=== PATIENT | male | born 1950 | race Caucasian/White ===

== ENCOUNTER 2019-09-21 06:52 | Day surgery (SDC) | payer MEDICARE, SELFPAY ==
[2019-09-21 07:19] LABS: Glucose Point of Care 122 (65-105)
== END 2019-09-21 10:08 | disposition home or self-care (01) ==
PROVIDERS: PCP Internal Medicine; Visit Provider Surgery
DX: R19.5 Other fecal abnormalities (principal); D12.5 Benign neoplasm of sigmoid colon; D12.8 Benign neoplasm of rectum
CPT/HCPCS: 45385; 811; 88305; J2370; J2704; J7120

== ENCOUNTER 2020-01-04 07:16 | Outpatient (CLI) | payer MEDICARE, SELFPAY ==
[2020-01-04 07:29] LABS: Add Urine Microscopic? YES; Appearance Urine Sl Cloudy (Clear); Bilirubin Urine Negative (Negative); Blood Urine Negative (Negative); Color Urine Yellow (Yellow); Glucose Urine UA Negative (Negative); Ketones Urine Negative (Negative); Leukocyte Esterase Ur 1+ (Negative); Nitrate Urine Positive (Negative); Protein Urine Negative (Negative); Specific Grav Ur 1.025 (1.010-1.020); Urobilinogen Urine 0.2 mg/dL (0.2-1.0)
[2020-01-04 07:36] LABS: Bacteria Urine 3+ /hpf; RBC Urine 0-2 /hpf (0-2); WBC Urine 31-50 /hpf (0-3)
[2020-01-04 07:38] LABS: Hemoglobin A1C 6.9 % (<5.7); MALB Creatinine Ratio 9.2 mg/g (0-30); Microalbumin Urine Random 12.2 mg/L
[2020-01-04 08:07] LABS: Alanine Aminotransferase 33 U/L (16-63); Albumin Level 3.5 g/dL (3.4-5.0); Alkaline Phosphatase 91 U/L (46-116); Anion Gap 14.4 mmol/L (7-16); Aspartate Amino Transferase 19 U/L (15-37); Bilirubin,Total 0.4 mg/dL (0.00-1.00); Blood Urea Nitrogen 14 mg/dL (7-18); Calcium 8.4 mg/dL (8.5-10.1); Carbon Dioxide 27 mmol/L (21-32); Chloride 106 mmol/L (98-108); Cholesterol 141 mg/dL (0-200); Creatine Kinase 77 U/L (39-308); Estimated Glomerular Filt Rate > 60; Glucose 131 mg/dL (70-99); HDL Direct 37 mg/dL (40-60); LDL Cholesterol Calculated 82 mg/dL (<130); Osmolality Calculated 298 mOsm/kg (285-295); Potassium 4.4 mmol/L (3.5-5.1); Sodium 143 mmol/L (136-145); Total Protein 6.2 g/dL (6.4-8.2); Triglycerides 108 mg/dL (0-150)
== END 2020-01-04 07:17 | disposition home or self-care (01) ==
LOC: CHSLAB 07:18
PROVIDERS: PCP Internal Medicine; Visit Provider Internal Medicine
DX: E78.2 Mixed hyperlipidemia (principal); E11.9 Type 2 diabetes mellitus without complications; I10 Essential (primary) hypertension
CPT/HCPCS: 36415; 80053; 80061; 81001; 82043; 82550; 83036

== ENCOUNTER 2020-01-25 07:26 | Outpatient (CLI) | payer MEDICARE, SELFPAY ==
--- NOTE | ~2020-01-25 | CT_ITS ---
EXAMINATION: CT abdomen pelvis w con DATE: 01/25/2020 08:23 INDICATION: Right sided abdominal mass TECHNIQUE: Computed tomography (CT) of the abdomen and pelvis was performed with 100 cc Omnipaque 350 intravenous contrast. Automated exposure control and iterative reconstruction technique were employe d. Exam dose: 1379.59 mGy-cm total exam DLP. COMPARISON: None. FINDINGS: The lung bases are clear of infiltrate or consolidation. Normal heart size. No pericardial or pleural effusion. Small sliding hiatal hernia. There are multiple faceted gallstones in the dependent aspect of the gallbladder, measuring up to jb roximately 1 cm maximal dimension. No unusual gallbladder distention or gallbladder wall thickening o r pericholecystic fluid or stranding is evident. No bile duct or pancreatic duct dilatation. No hepatic space-occupying mass lesion is evident. The spleen measures 11 cm vertical dimension, with 14 cm being upper limits of normal. No pancreatic mass lesion or calcification. Normal morphology of the adrenal glands. There is a 3.7 cm exophytic cyst of the left kidney lower pole. Indeterminate approximately 1 cm septated hypoenhancing lesion in the posterior upper pole of the rig ht kidney. This is likely a septated cyst, but consider follow-up CT imaging in 6 months. No other renal mass lesions are detected. No ureteral calculus or hydroureteronephrosis. There is severe prostate enlargement. There is mild diffuse bladder wall thickening and evidence of s mall urinary bladder diverticulum on the left anterosuperiorly. Status post bilateral inguinal herniorrhaphy. There is calcification but no aneurysm of the abdominal aorta and iliac arteries. No intraperitoneal or retroperitoneal or pelvic mass lesion or adenopathy or ascites is detected. There is a small fat-containing inguinal hernia. There is a large right spiculated hernia containing fat, cecum and ascending colon, terminal ileum an d the proximal aspect of the appendix. No strangulation or obstruction is evident. No bowel wall thic kening, pneumatosis or intraperitoneal free air. Normal appendix. There are numerous diverticula of the colon primarily but not completely limited to the sigmoid and a scending colon. There is no CT evidence of diverticulitis. Included skeletal structures are unremarkable. IMPRESSION: Right largest medially in hernia containing ascending colon, cecum, terminal ileum and a portion of the appendix; no obstruction or strangulation Small fat-containing umbilical hernia Status post bilateral inguinal herniorrhaphy Cholelithiasis Small sliding hiatal hernia 3.7 cm exophytic cyst of the left kidney Probable 1 cm septated right renal cyst; consider 6 month follow-up CT imaging of right kidney Severe prostate enlargement Reviewed, dictated and finalized at [facility]. Reviewed, dictated and finalized at [facility]. IMPRESSION: Right largest medially in hernia containing ascending colon, cecum , terminal ileum and a portion of the appendix; no obstruction or strangulation Small fat-containing umbilical hernia Status post bilateral inguinal herniorrhaphy Cholelithiasis Small sliding hiatal hernia 3.7 cm exophytic cyst of the left kidney Probable 1 cm septated right renal cyst; consider 6 month follow-up CT imaging of right kidney Severe prostate enlargement
[2020-01-25 07:48] LABS: Estimated Glomerular Filt Rate > 60
== END 2020-01-25 07:27 | disposition home or self-care (01) ==
LOC: CHSIMG 07:28
PROVIDERS: PCP Internal Medicine; Visit Provider Internal Medicine
DX: R19.09 Other intra-abdominal and pelvic swelling, mass and lump (principal)
CPT/HCPCS: 74177; Q9965

== ENCOUNTER 2020-02-12 07:48 | Outpatient (CLI) | payer MEDICARE, SELFPAY ==
[2020-02-12 07:59] LABS: Appearance Urine Clear (Clear); Bilirubin Urine Negative (Negative); Color Urine Yellow (Yellow); Glucose Urine UA Negative (Negative); Ketones Urine Negative (Negative); Leukocyte Esterase Ur Negative (Negative); Nitrate Urine Negative (Negative); Protein Urine Negative (Negative); Specific Grav Ur >= 1.030 (1.010-1.020); Urobilinogen Urine 0.2 mg/dL (0.2-1.0); pH Urine 5.5 (5.0-8.0)
[2020-02-12 08:08] LABS: Add Urine Microscopic? YES; Blood Urine Trace-lysed (Negative); RBC Urine 0-2 /hpf (0-2)
[2020-02-12 08:09] LABS: Bacteria Urine Trace /hpf; Squamous Epithelial Cell Urine Few /hpf (Few); WBC Urine None seen /hpf (0-3)
== END 2020-02-12 07:49 | disposition home or self-care (01) ==
LOC: CHSLAB 07:50
PROVIDERS: PCP Internal Medicine; Visit Provider Internal Medicine
DX: N39.0 Urinary tract infection, site not specified (principal)
CPT/HCPCS: 81001; 87086; 87088

== ENCOUNTER 2020-03-12 14:52 | Outpatient (CLI) | payer MEDICARE, SELFPAY ==
--- NOTE | 2020-03-12 14:55 | ECG_ITS ---
Measurements Intervals [place] Rate: 61 P: 21 FL: 190 QRS: -20 QRSD: 93 T: 17 QT: 382 QTc: 386 Interpretive Statements SINUS RHYTHM BASELINE ARTIFACT- I, II, III, AVR, AVL, AVF NORMAL ECG Electronically Signed On 03-12-2020 15:27:38 CDT by Oli Leslie D.O.
[2020-03-12 15:59] LABS: Anion Gap 8 mmol/L (8-16); Blood Urea Nitrogen 11 mg/dL (9-20); Calcium 8.8 mg/dL (8.4-10.2); Carbon Dioxide 25 mmol/L (22-30); Chloride 104 mmol/L (98-107); Estimated Glomerular Filt Rate > 60; Glucose 127 mg/dL (75-110); Potassium 4.2 mmol/L (3.4-5.0); Sodium 137 mmol/L (137-145)
== END 2020-03-12 14:53 | disposition home or self-care (01) ==
LOC: ANHSURGERY 14:55
PROVIDERS: Anesthesiology; PCP Internal Medicine; Visit Provider Surgery
DX: K43.9 Ventral hernia without obstruction or gangrene (principal); I10 Essential (primary) hypertension; E11.9 Type 2 diabetes mellitus without complications
CPT/HCPCS: 36415; 80048; 86850; 86900; 86901; 93005

== ENCOUNTER 2020-03-18 01:02 | Outpatient (CLI) | payer MEDICARE, SELFPAY ==
[2020-03-18 16:32] LABS: SARS-CoV-2 RNA PCR Negative
== END 2020-03-18 01:03 | disposition home or self-care (01) ==
LOC: ANHCOVIDDT 01:03
PROVIDERS: PCP Internal Medicine; Visit Provider Surgery
DX: Z01.812 Encounter for preprocedural laboratory examination (principal); Z20.828 Contact with and (suspected) exposure to other viral communicable diseases
CPT/HCPCS: 87635; C9803; U0003

== ENCOUNTER 2020-03-20 00:45 | Day surgery (SDC) | payer MEDICARE, SELFPAY ==
[2020-03-11 12:22] VITALS: BMI 39.2
[2020-03-20] VITALS (8 sets, daily range): BP systolic 127–160; BP diastolic 72–98; PULSE 57–69; RESP 13–18; TEMP 36.2–36.6; O2SAT 94–98
[2020-03-20] MEDS: LACTATED RINGERS 1,000 ML 30 ML IV CONT ×2 (06:49→09:58)
[2020-03-20] MEDS: ACETAMINOPHEN 500 MG TABLET 1000 MG PO (06:50)
[2020-03-20] MEDS: KETOROLAC 15 MG/ML VIAL (*BKC) IV PUSH (06:50)
--- NOTE | 2020-03-20 07:01 | WPDANESEPPF ---
Anes - Initial Pre Proc Eval Procedure: Operation Date: 03/20/20 07:30 Proposed Procedures p Laparoscopic Right Spigelian Hernia Repair With Mesh, Davinci Assisted - Justin Ventura DO Date/Time: 03/20/20 07:01 Surgeon: Justin Ventura DO Pre Op Diagnosis: Right Spigelian Hernia Patient Data Age: 69 Gender: M Height: 1.75 m Weight: 120.35 kg Allergies Allergy/AdvReac Type Severity Reaction Status Date / Time No Known Allergies Allergy Unverified 03/11/20 12:17 Home Medications Medication Instructions Recorded Confirmed Type atenolol 25 mg tablet 25 mg PO DAILY 02/28/20 03/11/20 History losartan 100 mg tablet 50 mg PO DAILY 02/28/20 03/11/20 History meloxicam 15 mg tablet 15 mg PO DAILY 02/28/20 03/11/20 History metformin 500 mg tablet 500 mg PO DAILY 02/28/20 03/11/20 History pravastatin 40 mg tablet 40 mg PO DAILY 02/28/20 03/11/20 History tamsulosin 0.4 mg capsule 0.4 mg PO DAILY 02/28/20 03/11/20 History aspirin 81 mg tablet,delayed 81 mg PO DAILY 02/29/20 03/11/20 History release ECG: Date of Service: 03/12/20 Procedure(s): CA 12 lead EKG Accession Number(s): [id number] cc: ~ Measurements Intervals [place] Rate: 61 P: 21 [place]: 190 QRS: -20 QRSD: 93 T: 17 QT: 382 QTc: 386 Interpretive Statements SINUS RHYTHM BASELINE ARTIFACT- I, II, III, AVR, AVL, AVF NORMAL ECG Electronically Signed On 03-12-2020 15:27:38 CDT by Oli Leslie D.O. Dictated By: Oli Leslie DO 03/12/20 1544 Patient hx anesthesia problems: post op nausea/vomiting Family hx anesthesia problems: none PMFSH Past Medical History Medical History (Updated 03/20/20 @ 07:04 by Brennan Esquivel MD) Anxiety PANIC ATTACKS Arthritis BMI 39.0-39.9,adult BPH (benign prostatic hyperplasia) Chronic rhinitis COPD (chronic obstructive pulmonary disease) Emphysema lung GERD (gastroesophageal reflux disease) Heart disease HTN (hypertension) Mixed hyperlipidemia Post-operative nausea and vomiting Spigelian hernia Type 2 diabetes mellitus Surgical History Surgical History H/O hand surgery H/O hemorrhoidectomy H/O hernia repair bilateral inguinal History of colonoscopy Social History Social History Smoking packs per day: 1 Smoking cigarettes per day: 20.0 Years smoked: 25 Smoking pack-years: 25.00 Smoking status: Former smoker Tobacco type: cigarettes Smoking end date: 07/12/89 Alcohol intake: current Alcohol use details: 2 BEERS PER MONTH Substance use: unknown Living arrangements: alone Gender identity (if verbalized by the patient): Male Spiritual care concerns: No Anes - Eval Final PreProcedure Day of Procedure 03/20/20 07:01 Patient weight: obese Heart: regular rate and rhythm Lungs: clear to auscultation and normal air movement Airway: Mallampati scale class II Neurological: alert and oriented Last oral intake: >/= 8 hours ASA classification: III Emergent: no Anesthetic plan: proceed Anesthesia type and monitoring: general ETT Informed Consent: The patient's anesthetic plan and its attendant risks and benefits were discussed with the patient/family/POA. Questions were solicited and answers provided to the satisfaction of the patient/family/POA.
[2020-03-20 07:06] LABS: Glucose Point of Care 116 (65-105)
--- NOTE | 2020-03-20 07:22 | WPDHPUPDATE1 ---
History and Physical Update Update Date/Time: 03/20/20 07:22 History and Physical has been reviewed, including an updated exam of the patient. There are NO changes in the patient's condition. Risks, benefits, and alternatives have been discussed and questions answered. Patient agrees to proceed with procedure.
[2020-03-20] MEDS: ceFAZolin 3 GM/D5W 100 ML 100 ML IVPB (07:25)
--- NOTE | 2020-03-20 09:45 | PM.PROC ---
Procedure Note - Detailed Date of procedure: 03/20/20 Pre-op diagnosis: Right Spigelian Hernia Post-op diagnosis: other (Incarcerated right spigelian hernia) Procedure performed: Laparoscopic incarcerated right spigelian hernia repair with Symbotex mesh, da Morena assisted Description of procedure: Procedure as well as risks, benefits, and alternatives were discussed with the patient. Written consent was obtained and placed in chart prior to procedure. Patient was brought back to surgical suite. He was placed supine on operating table. Time-out was done to confirm patient and procedure. he was then intubated by the anesthesia department. his abdomen was prepped and draped in sterile fashion using chlorhexidine prep. A 5 millimeter incision was made in the left upper quadrant, and a 5 millimeter Optiview trocar was advanced through the abdominal layers under direct visualization. Once inside the abdominal cavity, carbon dioxide insufflation was used to create a pneumoperitoneum. the abdomen was inspected. An 8 millimeter incision was made in the left lower quadrant, and an 8 millimeter robotic trocar was placed under direct visualization. Another 8 millimeter incision was made in the left lateral abdomen, and an 8 millimeter robotic trocar was placed under direct visualization. Exparel was infiltrated along the lateral abdominal penny to perform a transversus abdominis plane block bilaterally. The 5 millimeter port was removed, the incision was extended to 12 millimeters, and a 12 millimeter air seal port was placed under direct visualization. A Vargas-Burk cone was also used to place an 0-Vicryl simple interrupted suture at this trocar site. The robotic arms were brought up to the patient's bedside and secured to the ports. The camera and instruments were inserted, and I then moved over to the robotic console and took control of the camera and instruments. After careful thorough inspection of the abdominal cavity, I began my dissection at the hernia. the incarcerated terminal ileum, cecum, and ascending colon were reduced from within the hernia defect. The hernia sac was also dissected down from the hernia defect along with the preperitoneal fat. I then measured the hernia size. The hernia measured 4 cm wide by 3 cm vertically. The fascia was closed using an 0-Stratafix running suture in a transverse fashion. A 10 cm x 15 cm Symbotex mesh was then placed within the abdominal cavity. This was oriented vertically with the mesh centered on the hernia defect. The mesh was then secured circumferentially using 2 0 V-lock absorbable running suture. The repair was inspected, and one final inspection was made around the abdominal cavity. The robotic instruments were then removed, and the robotic arms were disengaged from the trocars. The ports were then removed under direct visualization, the camera was removed, and the pneumoperitoneum was released. The 0 Vicryl transfascial suture was tied down. The skin of the incisions was then approximated using 4-0 Monocryl subcuticular suture. Exofin glue was then applied on top. The patient was then awakened from anesthesia, extubated, and transferred to recovery. Implants: Symbotex 10cm x 15cm mesh Anesthesia: GETA and local ( Exparel) Surgeon: Justin Ventura DO Estimated blood loss (mL): 10 Drains: No Complications: No immediate complications Condition: stable Disposition: same day Findings: Gene is a 69 y/o male who presents with a right spigelian hernia. He states he is not experiencing pain. He does hear a gurgling sound at the hernia site. He has a noticeable bulge on the right side. He reports having normal, regular BM's without difficulty. CT abd[facility]pelvis at [facility] was done on 01/25/20 and showed a large Spigelian hernia containing ascending colon, cecum, and terminal ileum. Discussions were made with the patient about his treatment options, and decision was made to proceed with
[2020-03-20 10:14] LABS: Glucose Point of Care 149 (65-105)
== END 2020-03-20 12:20 | disposition home or self-care (01) ==
PROVIDERS: PCP Internal Medicine; Visit Provider Surgery
PROC: (CPT 49653; principal; 2020-03-20 07:30)
DX: K43.6 Other and unspecified ventral hernia with obstruction, without gangrene (principal); I10 Essential (primary) hypertension; E78.2 Mixed hyperlipidemia; N40.0 Benign prostatic hyperplasia without lower urinary tract symptoms; J44.9 Chronic obstructive pulmonary disease, unspecified; K21.9 Gastro-esophageal reflux disease without esophagitis; E11.9 Type 2 diabetes mellitus without complications; Z79.84 Long term (current) use of oral hypoglycemic drugs; Z79.82 Long term (current) use of aspirin; Z87.891 Personal history of nicotine dependence; E66.9 Obesity, unspecified; Z68.37 Body mass index [BMI] 37.0-37.9, adult
CPT/HCPCS: 49653; S2900; A9270; C1781; C9290; J0690; J1100; J1170; J1885; J2250; J2405; J2704; J3010; J7030; J7120

== ENCOUNTER 2020-03-21 10:40 | Emergency (ER) | payer MEDICARE, SELFPAY ==
[2020-03-21 10:50] VITALS: BP 171/93; PULSE 74; RESP 16; TEMP 36.9; O2SAT 94
[2020-03-21 10:54] LABS: Appearance Urine Clear (Clear); Bilirubin Urine Negative (Negative); Color Urine Yellow (Yellow); Glucose Urine UA Negative (Negative); Ketones Urine Negative (Negative); Leukocyte Esterase Ur Negative LEU/UL (Negative); Nitrate Urine Negative (Negative); Protein Urine Negative (Negative); Specific Grav Ur 1.015 (1.010-1.020); Urobilinogen Urine 0.2 mg/dL (0.2-1.0)
[2020-03-21 10:57] LABS: Add Urine Microscopic? YES; Blood Urine Trace-Intact (Negative); RBC Urine 0-2 /hpf (0-2)
[2020-03-21 10:58] LABS: Bacteria Urine None seen /hpf; WBC Urine 0-3 /hpf (0-3)
[2020-03-21 11:22] LABS: Hemoglobin 14.2 g/dL (12.4-15.3); Mean Corpuscular Hemoglobin 29.8 pg (27.0-31.0); Mean Corpuscular Volume 90.3 fL (78.0-102.0); Mean Platelet Volume 11.3 fl (8.7-11.0); Platelet Count Result 143 K/mm3 (150-420); Red Blood Count 4.76 M/mm3 (4.70-6.10); Red Cell Distribution Width 12.4 % (11.6-14.4); White Blood Count 9.5 K/mm3 (4.8-10.8)
[2020-03-21 11:38] LABS: Alanine Aminotransferase 25 U/L (16-63); Albumin Level 3.9 g/dL (3.4-5.0); Alkaline Phosphatase 83 U/L (46-116); Anion Gap 13 mmol/L (8-16); Aspartate Amino Transferase 19 U/L (15-37); Bilirubin,Total 0.7 mg/dL (0.00-1.00); Blood Urea Nitrogen 24 mg/dL (7-18); Calcium 8.5 mg/dL (8.5-10.1); Carbon Dioxide 24 mmol/L (21-32); Chloride 100 mmol/L (98-108); Estimated Glomerular Filt Rate 32; Glucose 149 mg/dL (70-99); Osmolality Calculated 291 mOsm/kg (285-295); Potassium 4.2 mmol/L (3.5-5.1); Sodium 137 mmol/L (136-145); Total Protein 7.7 g/dL (6.4-8.2)
[2020-03-21] MEDS: SODIUM CHLORIDE 0.9% IV 1,000 ML 999 ML IV CONT (11:48)
--- NOTE | 2020-03-21 12:08 | ED.MALEGU ---
HPI - Male Genitourinary General Chief complaint: Urogenital-Male Stated complaint: surgery complications Source: patient Mode of arrival: ambulatory History of Present Illness HPI Narrative: This is a 69-year-old male presents today after he had Spigelian surgery laparoscopically at [facility]. And chest denies having difficulty passing urine and was having difficulty passing urine when he was standing. Currently able to pass urine with no burning no fever chills no nausea vomiting there is some abdominal tenderness after his laparoscopic surgery that was performed yesterday has had normal bowel movements. Onset (ago): day(s) Duration: improved Severity: mild Relieving factors: none Exacerbating factors: none Related Data Home Medications Medication Instructions Recorded Confirmed atenolol 25 mg tablet 25 mg PO DAILY 02/28/20 03/21/20 losartan 100 mg tablet 50 mg PO DAILY 02/28/20 03/21/20 meloxicam 15 mg tablet 15 mg PO DAILY 02/28/20 03/21/20 metformin 500 mg tablet 500 mg PO DAILY 02/28/20 03/21/20 pravastatin 40 mg tablet 40 mg PO DAILY 02/28/20 03/21/20 tamsulosin 0.4 mg capsule 0.4 mg PO DAILY 02/28/20 03/21/20 aspirin 81 mg tablet,delayed 81 mg PO DAILY 02/29/20 03/21/20 release Allergies Allergy/AdvReac Type Severity Reaction Status Date / Time No Known Allergies Allergy Unverified 03/20/20 07:12 Review of Systems Review of Systems: All systems reviewed & are unremarkable except as noted in HPI and below PMFSH Past Medical History Medical History Anxiety PANIC ATTACKS Arthritis BMI 39.0-39.9,adult BPH (benign prostatic hyperplasia) Chronic rhinitis COPD (chronic obstructive pulmonary disease) Emphysema lung GERD (gastroesophageal reflux disease) Heart disease HTN (hypertension) Mixed hyperlipidemia Post-operative nausea and vomiting Spigelian hernia Type 2 diabetes mellitus Surgical History Surgical History H/O hand surgery H/O hemorrhoidectomy H/O hernia repair bilateral inguinal History of colonoscopy Family History Family History Mother Hypertension Colon cancer Rheumatic arteritis High cholesterol Sibling Heart disease Social History Social History Smoking packs per day: 1 Smoking cigarettes per day: 20.0 Years smoked: 25 Smoking pack-years: 25.00 Smoking status: Former smoker Tobacco type: cigarettes Smoking end date: 07/12/89 Alcohol intake: current Substance use: unknown Gender identity (if verbalized by the patient): Male Spiritual care concerns: No Exam Const: General: no acute distress Nutritional Appearance: obese HENMT: Head: normal to inspection Eyes: Conjunctivae: conjunctivae normal Pupils: Equal, round and reactive pupils present EOM: EOMs intact bilaterally Neck: Neck: normal visual inspection, no lymphadenopathy and no meningeal signs Chest: Chest palpation & inspection: normal inspection of the chest Resp: Effort & Inspection: normal respiratory effort Auscultation: clear to auscultation bilaterally Cardio: Rate: regular rate Rhythm: regular rhythm GI: GI Palp: Yes Soft to palpation and Yes Tenderness to palpation present (GI) : General: Yes no CVA tenderness Testes: Testes normal Urinary Catheter: Urinary Catheter: patent and draining Back/Spine/Pelvis: Back: no CVA tenderness Skin: General skin exam: normal color Rashes: no rashes Extrem: General: normal to inspection and no pedal edema Psych: Appearance: grossly normal Mental Status: mental status grossly normal Course Course Emergency Course: Patient had elevated creatinine compared to a prior to his surgery had a bladder scan that showed 16cc of urine in his bladder, has been able to pass urine although difficult w
[2020-03-21 12:40] VITALS: BP 154/89
== END 2020-03-21 12:40 | disposition home or self-care (01) ==
PROVIDERS: Emergency Provider Emergency Medicine; PCP Internal Medicine
DX: N17.9 Acute kidney failure, unspecified (principal); N40.1 Benign prostatic hyperplasia with lower urinary tract symptoms
CPT/HCPCS: 36415; 80053; 81001; 85027; 96360; 99283; J7030

== ENCOUNTER 2020-03-28 11:42 | Inpatient (IN) | payer MEDICARE, SELFPAY ==
[2020-03-28] VITALS (9 sets, daily range): BP systolic 145–168; BP diastolic 64–97; PULSE 56–71; RESP 16–20; TEMP 36.4–36.8; O2SAT 96–100; BMI 38.7
--- NOTE | ~2020-03-28 | CT_ITS ---
EXAMINATION: CT abdomen pelvis wo con DATE: 03/28/2020 16:19 INDICATION: Abdominal pain. Nausea. TECHNIQUE: Computed tomography (CT) of the abdomen and pelvis was performed without intravenous contr ast. Automated exposure control and iterative reconstruction technique were employed. The dose-length product was 1380.19 mGy-cm. COMPARISON: CT abdomen and pelvis 01/25/2020 FINDINGS: The visualized portions of the lung bases demonstrate mild atelectasis. There are calcified pleural plaques bilaterally, which may be seen with asbestosis exposure. No pleural effusion. The he art size is normal. There are coronary artery calcifications. No pericardial effusion. There is diffu se hepatic steatosis. There are gallstones in the gallbladder, which is normal in size. The spleen, p ancreas, adrenal glands, and right kidney are normal. There is a 4.1 cm cyst in left kidney. No hydro nephrosis or urolithiasis. The prostate is severely enlarged. The bladder is decompressed by a Avitia catheter. There is diverticulosis of the colon without evidence of diverticulitis. There are no dilat ed loops of bowel. The appendix is normal. There is a small volume of ascites. There is edema in the retroperitoneum bilaterally. Body wall edema is noted. There is a small volume of fluid at the site o f the previously repaired right-sided spigelian hernia. There are changes of bilateral inguinal herni a repairs. Again seen is mild periportal lymphadenopathy, likely reactive. There is mild thoracolumba r spondylosis. IMPRESSION: 1. Small volume of ascites. 2. Small sliding hiatal hernia. 3. Diffuse hepatic steatosis. 4. Stable mild periportal lymphadenopathy, likely reactive. Reviewed, dictated and finalized at location A.
--- NOTE | ~2020-03-28 | US_ITS ---
US renal BI 03/28/2020 16:16 Procedure: Realtime transabdominal ultrasound of the kidneys and bladder. Indication: Postobstructive renal failure Comparison: No prior studies for comparison. Findings: Renal echotexture is normal bilaterally without hydronephrosis, contour deforming mass or r enal calculus. There is a 3.4 cm left renal cyst inferiorly. The right kidney measures 12.1 cm and le ft kidney measures 11.7 cm. There is a Avitia catheter in the bladder. Incidental note is made of gall stones. Impression: 1: Cholelithiasis. 2: 3.4 cm left renal cyst. Reviewed, dictated and finalized at location B. Impression: 1: Cholelithiasis. 2: 3.4 cm left renal cyst.
[2020-03-28 12:40] LABS: Basophils Percent Auto 0.3 % (0.2-1.2); Eosinophils Absolute Auto 0.2 K/mm3 (0-0.3); Eosinophils Percent Auto 1.8 % (0-4.4); Hematocrit 41.4 % (42.0-52.0); Hemoglobin 14.3 g/dL (14.0-18.0); Immature Granulocyte Absolute 0.02 K/mm3 (0.00-0.031); Immature Granulocyte Percent A 0.2 % (0-0.5); Lymphocytes Percent Auto 9.1 % (18.3-44.2); Mean Corpuscular HGB Conc 34.5 g/dl (32-36); Mean Corpuscular Hemoglobin 29.3 pg (26-34); Mean Corpuscular Volume 84.8 fl (80-100); Mean Platelet Volume 10.7 fl (7.4-10.4); Monocytes Absolute Auto 0.5 K/mm3 (0.1-0.6); Neutrophils Absolute Auto 7.2 K/mm3 (1.3-6.7); Neutrophils Percent Auto 82.6 % (45.5-73.1); Platelet Count Result 200 k/mm3 (150-375); Red Blood Count 4.88 M/mm3 (4.6-6.20); Red Cell Distribution Width 12.7 % (11.5-14.5); White Blood Count 8.8 K/mm3 (4.5-10.0)
[2020-03-28 13:00] LABS: Lactic Acid Reflex 0.9 mmol/L (0.7-2.1)
[2020-03-28 13:03] LABS: Alanine Aminotransferase 7 U/L (4-50); Albumin Level 4.1 g/dL (3.5-5.1); Alkaline Phosphatase 88 U/L (38-126); Anion Gap 25 mmol/L (8-16); Aspartate Amino Transferase 19 U/L (17-59); Bilirubin,Total 0.4 mg/dL (0.2-1.3); Blood Urea Nitrogen > 120 mg/dL (9-20); Calcium 7.7 mg/dL (8.4-10.2); Carbon Dioxide 12 mmol/L (22-30); Chloride 94 mmol/L (98-107); Glucose 86 mg/dL (75-110); Lipase 56 U/L (23-300); Potassium 5.7 mmol/L (3.4-5.0); Sodium 131 mmol/L (137-145)
[2020-03-28 13:34] LABS: Estimated CRCL calculation 5 ml/min; Estimated Glomerular Filt Rate 3
--- NOTE | 2020-03-28 14:06 | ED.ABDPAIN ---
HPI - Abdominal Pain General Chief Complaint: Abdominal Pain Stated Complaint: sent in dr. saucedo /varsha pain Time Seen by Provider: 03/28/20 13:52 History of Present Illness HPI narrative: Patient is a 69-year-old male who presents ER with lower abdominal pain and abnormal lab work. Patient had a spigelian hernia repaired on 03/20/2020. The next day he went to [facility] reporting decreased urine output. His creatinine was elevated from baseline. He received IV fluid and had a bladder scan that showed only 16 mL of retained urine. Patient reports over the last week he has had increased abdominal pain. She has episodes at night where he has urinary incontinence and voids all over himself. That will then decrease the discomfort he has in his lower abdomen. He has not been able to urinate on his own otherwise. No dysuria or fevers. Has history of BPH. Has not taken his medications in the last 3 days. Related Data Home Medications Medication Instructions Recorded Confirmed atenolol 25 mg tablet 25 mg PO DAILY 02/28/20 03/28/20 losartan 100 mg tablet 50 mg PO DAILY 02/28/20 03/28/20 meloxicam 15 mg tablet 15 mg PO DAILY 02/28/20 03/28/20 metformin 500 mg tablet 500 mg PO DAILY 02/28/20 03/28/20 pravastatin 40 mg tablet 40 mg PO DAILY 02/28/20 03/28/20 tamsulosin 0.4 mg capsule 0.4 mg PO DAILY 02/28/20 03/28/20 aspirin 81 mg tablet,delayed 81 mg PO DAILY 02/29/20 03/28/20 release Allergies Allergy/AdvReac Type Severity Reaction Status Date / Time seasonal allergy Allergy Other Uncoded 03/28/20 18:46 Review of Systems Review of Systems: All systems reviewed & are unremarkable except as noted in HPI and below Constitutional: Constitutional: Denies chills, Denies fever(s) and Denies weakness ENT: Denies nasal congestion and Denies sore throat Gastrointestinal: Gastrointestinal: Reports abdominal pain, Denies nausea and Denies vomiting Genitourinary: Genitourinary: Reports oliguria, Reports dysuria and Reports urinary incontinence [facility] Past Medical History Medical History (Updated 03/28/20 @ 23:07 by Pierre Pichardo MD) Anxiety Arthritis Benign prostatic hyperplasia Chronic rhinitis COPD with emphysema Essential hypertension Mixed hyperlipidemia Spigelian hernia Status post repair in March 2020. Type 2 diabetes mellitus Surgical History Surgical History (Updated 03/28/20 @ 20:56 by Dipti Olmstead PA-C) History of bilateral inguinal hernia repair History of colonoscopy History of elbow surgery History of hand surgery Related to a crush injury many years ago. History of hemorrhoidectomy History of hernia repair (~03/20/20) Right spigelian incarcerated hernia repair with mesh. Family History Family History Mother Hypertension Colon cancer Rheumatic arteritis High cholesterol Sibling Heart disease Social History Social History (Updated 03/28/20 @ 20:57 by Dipti Olmstead PA-C) Social History: Surrogate decision maker: Evelyn Kaye, daughter. Code status: Full code. Smoking packs per day: 1 Smoking cigarettes per day: 20.0 Years smoked: 25 Smoking pack-years: 25.00 Smoking status: Former smoker Tobacco type: cigarettes Smoking end date: 07/12/89 Alcohol intake: current Drinks per week: 1 Substance use: never Substance use type: does not use Additional living arrangements comments: Patient lives alone in his own home in [place]. He has been for approximately 2 years. 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 Gender identity (if verbalized by the patient): Male Spiritual care concerns: Yes Exam Narrative: Exam Narrative: GENERAL: Well-appearing, well-nourished, and in no acute distress. HEAD: Normocephalic, atraumatic. EYES: PERRL and EOMI. ENT: Mucous membranes moist. CHEST: Clear to auscultation. No respirat
--- NOTE | 2020-03-28 14:12 | ECG_ITS ---
Measurements Intervals [place] Rate: 55 P: 53 NC: 184 QRS: -25 QRSD: 89 T: 39 QT: 424 QTc: 406 Interpretive Statements SINUS BRADYCARDIA BASELINE ARTIFACT- I, II, AVR, AVL, V1, V4 BORDERLINE ECG Electronically Signed On 03-28-2020 14:37:25 CDT by Oli Leslie D.O.
[2020-03-28 14:48] LABS: Add Urine Microscopic? YES; Appearance Urine Cloudy (Clear); Bilirubin Urine Negative (Negative); Blood Urine 3+ (Negative); Color Urine Red (Yellow); Glucose Urine UA Negative (Negative); Ketones Urine Trace mg/dL (Negative); Leukocyte Esterase Ur Negative LEU/UL (Negative); Mucus Urine Rare /lpf; Nitrate Urine Negative (Negative); Protein Urine 2+ mg/dL (Negative); RBC Urine >75 /hpf (0-2); Specific Grav Ur 1.012 (1.001-1.035); Urobilinogen Urine Negative mg/dL (<2.0)
--- NOTE | 2020-03-28 15:55 | PC.NURSE ---
Patient to ultrasound via wheelchair.
[2020-03-28] MEDS: SODIUM BICARBONATE 8.4% 75 MEQ in SODIUM CHLORIDE 0.45% 1,000 ML 50 ML IV CONT (16:33)
--- NOTE | 2020-03-28 17:00 | PM.IMHP ---
H&P: HPI History of Present Illness Date/Time: 03/28/20. The patient was seen and evaluated in the emergency department at 17:00. Chief complaint: Weakness, difficulty urinating. Narrative: Blake Herron is a pleasant 69-year-old male with benign prostatic hyperplasia, hypertension, hyperlipidemia, COPD, and type 2 diabetes mellitus who presented to the emergency department earlier today with complaints of difficulty urinating and weakness. He is status post uneventful repair of an incarcerated spigelian hernia on 03/20/[address] Ventura. Since surgery he has had difficulties urinating, and in fact he was seen for such in the emergency department at [facility] on March 21. At that time his creatinine was a bit elevated from baseline, however bladder scan reportedly only showed 16 mL in the bladder and it was thought that he was probably dehydrated. He was given IV fluids for rehydration and discharged home. Unfortunately he continues to have difficulties urinating, at times just dribbling small amounts however some nights he wakes up ?soaked in urine.? His appetite has also been very poor with nausea and poor oral intake. In fact he has not had anything to eat or drink and has not taken his medications for the last 3 days. Additionally he has had discomfort in his lower abdomen and feelings of abdominal distension. A Avitia catheter was inserted and emergency department with reports of over 2 L of urine returned after insertion. With further questioning he has no known history of kidney disease. He took hydrocodone the 1st day after surgery however it made him nauseated and he took ibuprofen thereafter, reportedly 4, 400 mg tablets for just 2 days. He has not had fever, chills, or sweats. No cold or flu symptoms. He denies confusion. No vomiting. No diarrhea. Review of Systems Review of Systems: Narrative: Twelve systems were reviewed with pertinent positives and negatives as per HPI. No fever, chills, or sweats. No recent cold or flu symptoms. He denies chest pain shortness of breath. No cough. No diarrhea. No history of venous thromboembolism. Except as documented, all other systems were reviewed and are negative. [facility] Past Medical History Medical History (Updated 03/28/20 @ 20:56 by Dipti Olmstead PA-C) Anxiety Arthritis Benign prostatic hyperplasia Chronic rhinitis COPD with emphysema Essential hypertension Mixed hyperlipidemia Spigelian hernia Status post repair in March 2020. Type 2 diabetes mellitus Surgical History Surgical History (Updated 03/28/20 @ 20:56 by Dipti Olmstead PA-C) History of bilateral inguinal hernia repair History of colonoscopy History of elbow surgery History of hand surgery Related to a crush injury many years ago. History of hemorrhoidectomy History of hernia repair (~03/20/20) Right spigelian incarcerated hernia repair with mesh. Family History Family History Mother Hypertension Colon cancer Rheumatic arteritis High cholesterol Sibling Heart disease Social History Social History (Updated 03/28/20 @ 20:57 by Dipti Olmstead PA-C) Social History: Surrogate decision maker: Evelyn Kaye, daughter. Code status: Full code. Smoking packs per day: 1 Smoking cigarettes per day: 20.0 Years smoked: 25 Smoking pack-years: 25.00 Smoking status: Former smoker Tobacco type: cigarettes Smoking end date: 07/12/89 Alcohol intake: current Drinks per week: 1 Substance use: never Substance use type: does not use Additional living arrangements comments: Patient lives alone in his own home in [place]. He has been for approximately 2 years. 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 Gender identity (if verbalized by the patient): Male Spiritual care concerns: Yes Meds Home Medications
[2020-03-28] MEDS: SODIUM POLYSTYRENE SULFONONATE 15 GM/60 ML BTL 30 GM PO (17:03)
--- NOTE | 2020-03-28 18:10 | PM.CNNEP ---
Assessment and Plan Assessment and plan (1) Acute kidney injury: Code(s): N17.9 - Acute kidney failure, unspecified Status: Acute Assessment and Plan: the patient has acute kidney injury. It is not known what his kidney function was before this. A few years ago his creatinine was normal. The patient has a good diuresis since his bladder was drained. Given this and the fact that he had significant BPH symptoms before this I suspect that this is all due to obstruction. His BUN and creatinine are very high but the patient is relatively asymptomatic from this. So because things turn around so quickly in obstruction I do not think we need to do emergency dialysis even with this high BUN and creatinine. The patient was on meloxicam before this as well which would probably contribute to his high potassium and his renal insufficiency. Other things could be occurring as well such as glomerulonephritis, interstitial nephritis, or infiltrative diseases. If the creatinine does not get better soon we can look into more of this. For now will get urine electrolytes and eosinophils. Will get a renal ultrasound. Will leave the catheter in. Will get Urology to see the patient. (2) Metabolic acidosis: Code(s): E87.2 - Acidosis Status: Acute Assessment and Plan: The patient has metabolic acidosis. His anion gap is 25. This is higher than it should be. This is probably from uremic toxins. His lactic acid is normal ( in spite of the fact that he is on metformin ) he will get a little bit of bicarbonate along with his fluid. (3) Hyperkalemia: Code(s): E87.5 - Hyperkalemia Status: Acute Assessment and Plan: His potassium is high from the renal failure and possibly contributed to by the meloxicam. He is getting Kayexalate for this. (4) Arthritis: Code(s): M19.90 - Unspecified osteoarthritis, unspecified site Status: Acute Assessment and Plan: Will hold off treatment for this for now. (5) BPH (benign prostatic hyperplasia): Code(s): N40.0 - Benign prostatic hyperplasia without lower urinary tract symptoms Status: Acute Assessment and Plan: Dr. jackson going to see the patient (6) HTN (hypertension): Code(s): I10 - Essential (primary) hypertension Status: Acute Assessment and Plan: his blood pressure is a bit high. Will restart atenolol, and a little amlodipine, and hold off on the losartan. (7) Type 2 diabetes mellitus: Code(s): E11.9 - Type 2 diabetes mellitus without complications Status: Acute Assessment and Plan: On Accu-Cheks and sliding-scale insulin. 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 He has multiple illnesses including joint aches and pains, hypertension, diabetes, hyperlipidemia, benign prostatic hypertrophy. The patient was relatively well until he had surgery about 2 weeks ago on a sphegalian hernia. after the surgery the patient had much more trouble urinating than usual. Over the last few days the patient hardly made any urine at all. He would notice that if he crossed his right leg over his left that sometimes he would leak some urine and also heavy sat on the commode in leaned way forward then a little bit of urine would leak out. But generally very little urine output. He went to see his primary care doctor with these complaints and he kathryn some blood and after that came back a sent him to the ER. Before the surgery he had been urinating Better. However he did have significant nocturia, frequency, dribbling, and slow stream. A few months ago he had complained about these symptoms to his primary care doctor who gave him ta
[2020-03-28 19:35] LABS: Creatine Kinase 81 U/L (55-170)
[2020-03-28] MEDS: atenoloL 25 MG TABLET PO (21:00)
[2020-03-28 21:29] LABS: Creatinine Urine 126.6 mg/dL; Total Protein Urine Random 30 mg/dL
[2020-03-28 21:31] LABS: Sodium Urine Random 40 meq/L
[2020-03-28 21:42] LABS: Anion Gap 15 mmol/L (8-16); Blood Urea Nitrogen 92 mg/dL (9-20); Calcium 8.2 mg/dL (8.4-10.2); Carbon Dioxide 16 mmol/L (22-30); Chloride 105 mmol/L (98-107); Creatine Kinase 69 U/L (55-170); Estimated CRCL calculation 10 ml/min; Estimated Glomerular Filt Rate 6; Glucose 129 mg/dL (75-110); Potassium 3.9 mmol/L (3.4-5.0); Sodium 136 mmol/L (137-145)
[2020-03-29] VITALS (12 sets, daily range): BP systolic 133–171; BP diastolic 67–82; PULSE 50–72; RESP 18–20; TEMP 36.6–36.9; O2SAT 94–96
[2020-03-29 00:23] LABS: Glucose Point of Care 125 (65-105)
[2020-03-29 06:47] LABS: Basophils Percent Auto 0.3 % (0.2-1.2); Eosinophils Absolute Auto 0.3 K/mm3 (0-0.3); Hematocrit 40.5 % (42.0-52.0); Hemoglobin 13.9 g/dL (14.0-18.0); Immature Granulocyte Absolute 0.02 K/mm3 (0.00-0.031); Immature Granulocyte Percent A 0.3 % (0-0.5); Lymphocytes Percent Auto 14.4 % (18.3-44.2); Mean Corpuscular HGB Conc 34.3 g/dl (32-36); Mean Corpuscular Volume 87.5 fl (80-100); Monocytes Absolute Auto 0.6 K/mm3 (0.1-0.6); Monocytes Percent Auto 10.1 % (2.6-8.5); Neutrophils Absolute Auto 4.4 K/mm3 (1.3-6.7); Neutrophils Percent Auto 70.9 % (45.5-73.1); Platelet Count Result 211 k/mm3 (150-375); Red Blood Count 4.63 M/mm3 (4.6-6.20); White Blood Count 6.3 K/mm3 (4.5-10.0)
--- NOTE | 2020-03-29 06:53 | WPDURCON ---
Assessment and Plan Assessment and plan (1) Acute urinary retention: Code(s): R33.8 - Other retention of urine Status: Acute (2) Acute renal failure: Code(s): N17.9 - Acute kidney failure, unspecified Status: Acute (3) BPH loc w urin obs/LUTS: Code(s): N40.1 - Benign prostatic hyperplasia with lower urinary tract symptoms Status: Acute Assessment and Plan: Urinary retention and acute kidney injury resulting from underlying BPH. I will maximize medical therapy by increasing Flomax to 0.4 mg b.i.d. and adding finasteride. Initially catheterized volume of 2 L suggest a possible underlying hypotonic /atonic bladder. Will plan voiding trial in 48 hours with but he'll need to be watched carefully for signs of recurring urinary retention. If retention does recur he will require replacement of catheter followed outpatient urodynamics. Urology Consult Note HPI Date Seen: 03/29/20 Requesting Physician: Alcon Cottrell MD Primary Care Provider: Mary Smith MD Consult Narrative Narrative: Blake Herron is a 69 year old male who reports being on Flomax for BPH for several years. He gives a history suggestive of bladder outlet obstruction with only a marginal response to Flomax in the past. More recently, following repair of a spigelian hernia, he developed marked difficulty urinating with a pattern consistent with overflow incontinence. When seen in the ER he was in acute renal failure with a serum creatinine greater than 13. He was catheterized without difficulty with return of over 2 L of urine. Since catheterization his renal function has been improving and he is undergone a vigorous diuresis. Imaging both with CT scan and renal ultrasonography show markedly enlarged prostate without hydronephrosis following catheter placement. Review of Systems Cardiovascular: Cardiovascular: Denies chest pain, Denies lightheadedness, Denies palpitations and Denies dyspnea Respiratory: Respiratory: Denies dyspnea Gastrointestinal: Gastrointestinal: Denies diarrhea, Denies nausea and Denies vomiting Genitourinary: Genitourinary: Denies hematuria and Denies dysuria Endocrine: Endocrine: Denies palpitations [facility] Past Medical History Medical History Anxiety Arthritis Benign prostatic hyperplasia Chronic rhinitis COPD with emphysema Essential hypertension Mixed hyperlipidemia Spigelian hernia Status post repair in March 2020. Type 2 diabetes mellitus Surgical History Surgical History History of bilateral inguinal hernia repair History of colonoscopy History of elbow surgery History of hand surgery Related to a crush injury many years ago. History of hemorrhoidectomy History of hernia repair (~03/20/20) Right spigelian incarcerated hernia repair with mesh. Family History Family History Mother Hypertension Colon cancer Rheumatic arteritis High cholesterol Sibling Heart disease Social History Social History Social History: Surrogate decision maker: Evelyn Kaye, daughter. Code status: Full code. Smoking packs per day: 1 Smoking cigarettes per day: 20.0 Years smoked: 25 Smoking pack-years: 25.00 Smoking status: Former smoker Tobacco type: cigarettes Smoking end date: 07/12/89 Alcohol intake: current Drinks per week: 1 Substance use: never Substance use type: does not use Additional living arrangements comments: Patient lives alone in his own home in [place]. He has been for approximately 2 years. 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 Gender identity (if verbalized by the patient): Male Spiritual care concerns: Yes Meds Home Medica
[2020-03-29 07:01] LABS: Potassium 3.8 mmol/L (3.4-5.0)
[2020-03-29 07:05] LABS: Alanine Aminotransferase 8 U/L (4-50); Albumin Level 3.5 g/dL (3.5-5.1); Alkaline Phosphatase 78 U/L (38-126); Anion Gap 9 mmol/L (8-16); Aspartate Amino Transferase 18 U/L (17-59); Bilirubin,Total 0.7 mg/dL (0.2-1.3); Blood Urea Nitrogen 48 mg/dL (9-20); Calcium 8.2 mg/dL (8.4-10.2); Carbon Dioxide 20 mmol/L (22-30); Chloride 110 mmol/L (98-107); Estimated CRCL calculation 32 ml/min; Estimated Glomerular Filt Rate 26; Glucose 119 mg/dL (75-110); Magnesium 2.5 mg/dL (1.6-2.3); Phosphorus 3.4 mg/dL (2.5-4.5); Sodium 139 mmol/L (137-145)
--- NOTE | 2020-03-29 08:00 | PC.NURSE ---
The daughter of this patient (Sidney) called in @[address] to work, sidney was updated about her father and all questions she had about Genes care were answered.
[2020-03-29] MEDS: PRAVASTATIN SODIUM 20 MG TABLET 40 MG PO (09:09)
[2020-03-29] MEDS: atenoloL 25 MG TABLET PO (09:09)
[2020-03-29] MEDS: TAMSULOSIN HCL 0.4 MG CAPSULE PO ×2 (09:09→21:01)
[2020-03-29] MEDS: amLODIPine BESYLATE 2.5 MG TABLET PO (09:09)
[2020-03-29] MEDS: FINASTERIDE 5 MG TABLET PO (09:10)
[2020-03-29 10:11] LABS: Glucose Point of Care 151 (65-105)
--- NOTE | 2020-03-29 12:35 | PM.IMPN ---
Progress Note: A&P Assessment and Plan (1) Acute kidney injury: Code(s): N17.9 - Acute kidney failure, unspecified Status: Acute Assessment and Plan: Likely multifactorial in etiology to include dehydration and obstructive uropathy. Cannot rule out intrinsic kidney injury. Sorensen catheter yielded greater than 2 L of urine. Creatinine 17.4 at presentation and has declined to 2.5 today. Continue sorensen catheter and IV fluid rehydration Avoid nephrotoxic agents and monitor renal function closely. Dr. Lantigua is following and his recommendations are appreciated. (2) Benign prostatic hyperplasia: Qualifiers: Lower urinary tract symptom presence: symptoms present Lower urinary tract symptom detail: urinary obstruction Qualified Code(s): N40.1 - Benign prostatic hyperplasia with lower urinary tract symptoms; N13.8 - Other obstructive and reflux uropathy Code(s): N40.0 - Benign prostatic hyperplasia without lower urinary tract symptoms Status: Acute Assessment and Plan: Sorensen catheter placed for retention of greater than 2 L. Urology has been consulted and input is appreciated. Continue tamsulosin at increased dose 0.4 mg BID and finasteride 5 mg daily Plan for voiding trial after 48 hours per urology recommendations. (3) Metabolic acidosis: Code(s): E87.2 - Acidosis Status: Acute Assessment and Plan: Related to renal failure. No anion gap. Bicarb improved from 16 at admission to 20 today. Continue bicarbonate drip. Appreciate nephrology recommendations (4) Hyperkalemia: Code(s): E87.5 - Hyperkalemia Status: Acute Assessment and Plan: Potassium 5.7 at presentation, likely related to acute kidney injury/dehydration. improved with IV fluids and is 3.8 today. Monitor potassium closely and replace as needed (5) Essential hypertension: Code(s): I10 - Essential (primary) hypertension Status: Acute Assessment and Plan: blood pressures reviewed today and generally well controlled in the 140s systolic. He had been off of his medications for 3 days due to nausea. Continue amlodipine and atenolol. Losartan is on hold given ALTHEA Monitor blood pressure daily (6) COPD with emphysema: Code(s): J43.9 - Emphysema, unspecified Status: Acute Assessment and Plan: No acute issues. He is not on any maintenance inhaler set I can see. Initiate p.r.n. albuterol as patient does have faint post expiratory wheezes bilaterally (7) Type 2 diabetes mellitus: Code(s): E11.9 - Type 2 diabetes mellitus without complications Status: Acute Assessment and Plan: Blood sugars reviewed and are generally well controlled Metformin on hold given acute kidney injury. Continue sliding scale insulin, Accu-Cheks, and hypoglycemic protocol. Check hemoglobin A1c Subjective Date/time seen: 03/29/20 12:35 Interval history: Date of service: 03/29/2020 Blake Herron is an extremely pleasant 69-year-old male with a history of type 2 diabetes mellitus, COPD, hypertension s/p spigelian hernia repair on 03/20/2020 who is seen in follow-up for acute kidney injury secondary to obstructive uropathy. He reports that he is feeling well today. He feels that his abdomen is much less distended after having his bladder decompressed. He had a bowel movement last night. He denies nausea, vomiting, fever, chills, dizziness, lightheadedness, or headache. He denies shortness of breath or chest pain. He has been eating well. He has no additional concerns. Review of Systems Review of Systems: Narrative: 12 systems reviewed with pertinent positives and negatives as per HPI. Exam Narrative: Exam Narrative: Mr. Woodruff is a well-nourished 69-year-old male who is lying supine in bed. He appears comfortable and is in no acute respiratory distress. HR 61, BP 139/67, RR 20,
[2020-03-29 12:58] LABS: Glucose Point of Care 178 (65-105)
[2020-03-29] MEDS: SODIUM BICARBONATE 8.4% 75 MEQ in SODIUM CHLORIDE 0.45% 1,000 ML 50 ML IV CONT (14:15)
--- NOTE | 2020-03-29 16:37 | PM.PNNEP ---
Progress Note: A&P Assessment and Plan (1) Acute kidney injury: Code(s): N17.9 - Acute kidney failure, unspecified Status: Acute Assessment and Plan: the patient has acute kidney injury. renal sono no hydro U'lytes nonprerenal creatinine much better continue sorensen drainage' on the case (2) Metabolic acidosis: Code(s): E87.2 - Acidosis Status: Acute Assessment and Plan: improved lactate okay (3) Hyperkalemia: Code(s): E87.5 - Hyperkalemia Status: Acute Assessment and Plan: resolved (4) Arthritis: Code(s): M19.90 - Unspecified osteoarthritis, unspecified site Status: Acute Assessment and Plan: Will hold off treatment for this for now. (5) BPH (benign prostatic hyperplasia): Code(s): N40.0 - Benign prostatic hyperplasia without lower urinary tract symptoms Status: Acute Assessment and Plan: on the case (6) HTN (hypertension): Code(s): I10 - Essential (primary) hypertension Status: Acute Assessment and Plan: his blood pressure is a bit high. Will restart atenolol, and a little amlodipine, and hold off on the losartan. (7) Type 2 diabetes mellitus: Code(s): E11.9 - Type 2 diabetes mellitus without complications Status: Acute Assessment and Plan: On Accu-Cheks and sliding-scale insulin. Subjective Date/time seen: 03/29/20 16:37 Interval history: daughter in law in the room pt feels worlds better. no cp or sob Review of Systems Cardiovascular: Cardiovascular: Reports no additional cardiovascular complaints Respiratory: Respiratory: Reports no additional respiratory complaints Gastrointestinal: Gastrointestinal: Reports no additional gastrointestinal complaints Genitourinary: Genitourinary: Reports no additional male genitourinary complaints Exam Narrative: Exam Narrative: WDWN in NAD skin no rash head ncat lungs clear cor reg no rub abd BS+ nontender and soft ext no edema. Objective Data Vital Signs Vital Signs: Vital Signs - 24 hr 03/28/20 17:09 03/28/20 18:54 03/28/20 20:00 Temperature 36.8 C Pulse Rate 61 56 L 70 Respiratory Rate 18 18 Blood Pressure 167/92 H 168/64 H Pulse Oximetry 98 100 03/28/20 21:00 03/28/20 22:00 03/29/20 00:00 Temperature 36.8 C Pulse Rate 64 60 58 L Respiratory Rate 20 Blood Pressure 153/80 H Pulse Oximetry 96 03/29/20 02:00 03/29/20 04:00 03/29/20 06:00 Temperature 36.6 C 36.6 C Pulse Rate 72 54 L 61 Respiratory Rate 20 20 Blood Pressure 147/72 H 139/67 Pulse Oximetry 96 96 03/29/20 09:09 03/29/20 09:15 Temperature Pulse Rate 61 66 Respiratory Rate 18 Blood Pressure 141/75 H Pulse Oximetry 96 Intake/Output Intake/Output: Intake & Output 03/26/20 03/27/20 03/28/20 03/29/20 23:59 23:59 23:59 23:59 Intake Total 1835 Output Total 3000 Balance -1165 Meds/Results Medications: Active Medications Generic Name Dose Route Start Last Admin Trade Name Freq PRN Reason Stop Dose Admin Acetaminophen 650 mg 03/28/20 15:37 Tylenol Tablet PO Q4H PRN Mild Pain (1-3) or Fever Hydrocodone Bitart/Acetaminophen 1 tab 03/28/20 15:37 [place] 5-325 Mg PO Q4H PRN Pain Rated 4-6 Amlodipine Besylate 2.5 mg 03/29/20 09:00 03/29/20 09:09 Norvasc PO 2.5 mg QAM JOVANA Administration Atenolol 25 mg 03/29/20 09:00 03/29/20 09:09 Tenormin PO 25 mg DAILY JOVANA Administration Dextrose 12.5 gm 03/28/20 21:04 Dextrose 50% Syringe IV PUSH PRN PRN Hypoglycemia Protocol Finasteride 5 mg 03/29/20 09:00 03/29/20 09:10 Proscar PO 5 mg QAM JOVANA Administration Glucagon 1 mg 03/28/20 21:04 Glucagon For Inj IM PRN PRN Hypoglycemia Protocol Glucose 15 gm 03/28/20 21:04 Glutose 15 PO PRN PRN Hypoglycemia Protocol Sodium Bicarbonate 75 me
[2020-03-29 17:37] LABS: Glucose Point of Care 156 (65-105)
[2020-03-29 22:00] LABS: Glucose Point of Care 153 (65-105)
[2020-03-30] VITALS (8 sets, daily range): BP systolic 100–164; BP diastolic 78–87; PULSE 47–76; RESP 18; TEMP 36.7; O2SAT 100
[2020-03-30 06:21] LABS: Hematocrit 35.7 % (42.0-52.0); Mean Corpuscular HGB Conc 33.6 g/dl (32-36); Mean Corpuscular Hemoglobin 29.6 pg (26-34); Mean Corpuscular Volume 87.9 fl (80-100); Mean Platelet Volume 11.2 fl (7.4-10.4); Platelet Count Result 171 k/mm3 (150-375); Red Blood Count 4.06 M/mm3 (4.6-6.20)
[2020-03-30 06:39] LABS: Alanine Aminotransferase 7 U/L (4-50); Alkaline Phosphatase 65 U/L (38-126); Anion Gap 4 mmol/L (8-16); Aspartate Amino Transferase 15 U/L (17-59); Bilirubin,Total 0.6 mg/dL (0.2-1.3); Blood Urea Nitrogen 11 mg/dL (9-20); Carbon Dioxide 28 mmol/L (22-30); Chloride 109 mmol/L (98-107); Estimated CRCL calculation 104 ml/min; Estimated Glomerular Filt Rate > 60; Glucose 130 mg/dL (75-110); Phosphorus 1.5 mg/dL (2.5-4.5); Potassium 3.5 mmol/L (3.4-5.0); Sodium 141 mmol/L (137-145)
[2020-03-30 08:55] LABS: Glucose Point of Care 154 (65-105)
[2020-03-30] MEDS: amLODIPine BESYLATE 2.5 MG TABLET PO (09:11)
[2020-03-30] MEDS: PRAVASTATIN SODIUM 20 MG TABLET 40 MG PO (09:12)
[2020-03-30] MEDS: TAMSULOSIN HCL 0.4 MG CAPSULE PO ×2 (09:12→20:30)
[2020-03-30] MEDS: FINASTERIDE 5 MG TABLET PO (09:12)
[2020-03-30] MEDS: atenoloL 25 MG TABLET PO (09:13)
--- NOTE | 2020-03-30 11:13 | PM.IMPN ---
Progress Note: A&P Assessment and Plan (1) Acute kidney injury: Code(s): N17.9 - Acute kidney failure, unspecified Status: Acute Assessment and Plan: Likely multifactorial in etiology to include dehydration and obstructive uropathy. Cannot rule out intrinsic kidney injury. Sorensen catheter yielded greater than 2 L of urine. Creatinine 17.4 at presentation and has declined to 0.70 today. Appears to have resolved Continue sorensen catheter and IV fluid rehydration Avoid nephrotoxic agents and monitor renal function closely. Dr. Lantigua is following and his recommendations are appreciated. Will stop IVF; discussed with Dr. Lantigua (2) Benign prostatic hyperplasia: Qualifiers: Lower urinary tract symptom presence: symptoms present Lower urinary tract symptom detail: urinary obstruction Qualified Code(s): N40.1 - Benign prostatic hyperplasia with lower urinary tract symptoms; N13.8 - Other obstructive and reflux uropathy Code(s): N40.0 - Benign prostatic hyperplasia without lower urinary tract symptoms Status: Acute Assessment and Plan: Sorensen catheter placed for retention of greater than 2 L. Urology has been consulted and input is appreciated. Continue tamsulosin at increased dose 0.4 mg BID and finasteride 5 mg daily Plan for voiding trial tomorrow per urology recommendations. Await further recommendations (3) Metabolic acidosis: Code(s): E87.2 - Acidosis Status: Acute Assessment and Plan: Related to renal failure. No anion gap. Bicarb improved from 16 at admission to 28 today. Will d/c bicarb drip; discussed with Dr. Lantigua Appreciate nephrology recommendations Monitor BMP (4) Hyperkalemia: Code(s): E87.5 - Hyperkalemia Status: Acute Assessment and Plan: Potassium 5.7 at presentation, likely related to acute kidney injury/dehydration. improved with IV fluids and is 3.5 today. Monitor potassium closely and replace as needed (5) Essential hypertension: Code(s): I10 - Essential (primary) hypertension Status: Acute Assessment and Plan: blood pressures reviewed today and generally well controlled in the 140s systolic. He had been off of his medications for 3 days due to nausea. Continue low dose amlodipine for now; continue home dose atenolol. Losartan is on hold given ALTHEA Monitor blood pressure daily (6) COPD with emphysema: Code(s): J43.9 - Emphysema, unspecified Status: Acute Assessment and Plan: No acute issues. He is not on any maintenance inhaler set I can see. Continue p.r.n. albuterol (7) Type 2 diabetes mellitus: Code(s): E11.9 - Type 2 diabetes mellitus without complications Status: Acute Assessment and Plan: Blood sugars reviewed and are generally well controlled. A1c of 6.0 this hospital stay Metformin on hold given acute kidney injury. Continue sliding scale insulin, Accu-Cheks, and hypoglycemic protocol. Subjective Date/time seen: 03/30/20 11:13 Interval history: Patient is a 69 yo M with history of type 2 diabetes mellitus, COPD, hypertension s/p spigelian hernia repair on 03/20/2020 who is seen in follow-up for acute kidney injury secondary to obstructive uropathy. Patient states he feels a lot better again today. Asking when he is going to be discharged. Tolerating PO currently. BM a couple days ago when he was given a laxative in the ER; no other complaints. Denies f/c/s,headaches, dizziness, lightheadedness, cp/palpitations, sob/cough, n/v/d/c, abd pain, changes in BMs, Sorensen discomfort, calf pain/swelling. Review of Systems Review of Systems: All systems
[2020-03-30 12:19] LABS: Glucose Point of Care 150 (65-105)
[2020-03-30 21:12] LABS: Glucose Point of Care 119 (65-105)
[2020-03-31] VITALS: BP 148/80; PULSE 52; RESP 18; TEMP 36.7; O2SAT 95
[2020-03-31 02:18] LABS: Glucose Point of Care 167 (65-105)
[2020-03-31 06:00] VITALS: BP 142/69; PULSE 54; RESP 20; TEMP 36.7; O2SAT 97
[2020-03-31 06:07] LABS: Hematocrit 36.4 % (42.0-52.0); Hemoglobin 12.1 g/dL (14.0-18.0); Mean Corpuscular HGB Conc 33.2 g/dl (32-36); Mean Corpuscular Hemoglobin 29.4 pg (26-34); Mean Corpuscular Volume 88.3 fl (80-100); Mean Platelet Volume 10.7 fl (7.4-10.4); Platelet Count Result 162 k/mm3 (150-375); Red Blood Count 4.12 M/mm3 (4.6-6.20); Red Cell Distribution Width 12.6 % (11.5-14.5); White Blood Count 5.5 K/mm3 (4.5-10.0)
[2020-03-31 06:46] LABS: Anion Gap 2 mmol/L (8-16); Blood Urea Nitrogen 6 mg/dL (9-20); Carbon Dioxide 29 mmol/L (22-30); Chloride 108 mmol/L (98-107); Estimated CRCL calculation 119 ml/min; Estimated Glomerular Filt Rate > 60; Glucose 120 mg/dL (75-110); Magnesium 1.9 mg/dL (1.6-2.3); Potassium 3.2 mmol/L (3.4-5.0); Sodium 139 mmol/L (137-145)
[2020-03-31 08:00] VITALS: PULSE 70; RESP 20; O2SAT 97
[2020-03-31 08:40] LABS: Glucose Point of Care 108 (65-105)
[2020-03-31] MEDS: PRAVASTATIN SODIUM 20 MG TABLET 40 MG PO (09:04)
[2020-03-31] MEDS: POTASSIUM CHLORIDE 20 MEQ TABLET 40 MEQ PO (09:04)
[2020-03-31 09:05] VITALS: PULSE 70
[2020-03-31] MEDS: atenoloL 25 MG TABLET PO (09:05)
[2020-03-31] MEDS: TAMSULOSIN HCL 0.4 MG CAPSULE PO (09:05)
[2020-03-31] MEDS: amLODIPine BESYLATE 2.5 MG TABLET PO (09:07)
[2020-03-31] MEDS: FINASTERIDE 5 MG TABLET PO (09:07)
[2020-03-31 12:24] LABS: Glucose Point of Care 123 (65-105)
--- NOTE | 2020-03-31 12:32 | PM.IMPN ---
Progress Note: A&P Assessment and Plan (1) Acute kidney injury: Code(s): N17.9 - Acute kidney failure, unspecified Status: Acute Assessment and Plan: Likely multifactorial in etiology to include dehydration and obstructive uropathy. Cannot rule out intrinsic kidney injury. Avitia catheter yielded greater than 2 L of urine. Creatinine 17.4 at presentation and has declined to 0.60 today. Appears to have resolved Continue Avitia catheter; RN contacting Urology to see if patient will start voiding trial today Avoid nephrotoxic agents and monitor renal function closely. Dr. Lantigua is following and his recommendations are appreciated. (2) Benign prostatic hyperplasia: Qualifiers: Lower urinary tract symptom presence: symptoms present Lower urinary tract symptom detail: urinary obstruction Qualified Code(s): N40.1 - Benign prostatic hyperplasia with lower urinary tract symptoms; N13.8 - Other obstructive and reflux uropathy Code(s): N40.0 - Benign prostatic hyperplasia without lower urinary tract symptoms Status: Acute Assessment and Plan: Avitia catheter placed for retention of greater than 2 L. Urology has been consulted and input is appreciated. Continue tamsulosin at increased dose 0.4 mg BID and finasteride 5 mg daily per Urology recommendations Possible voiding trial today. Possible discharge today or tomorrow pending voiding trial Await further recommendations (3) Metabolic acidosis: Code(s): E87.2 - Acidosis Status: Resolved Assessment and Plan: Related to renal failure. No anion gap. Bicarb improved from 16 at admission to 29 today. Appreciate nephrology recommendations Monitor BMP (4) Hyperkalemia: Code(s): E87.5 - Hyperkalemia Status: Acute Assessment and Plan: Potassium 5.7 at presentation, likely related to acute kidney injury/dehydration. improved with IV fluids and is 3.2 today. Replaced this morning Monitor potassium closely and replace as needed (5) Essential hypertension: Code(s): I10 - Essential (primary) hypertension Status: Acute Assessment and Plan: blood pressures reviewed today and generally well controlled in the 140s systolic. He had been off of his medications for 3 days due to nausea. Continue low dose amlodipine for now; continue home dose atenolol. Losartan is on hold given ALTHEA; likely resume after discharge Monitor blood pressure daily (6) COPD with emphysema: Code(s): J43.9 - Emphysema, unspecified Status: Acute Assessment and Plan: No acute issues. He does not appear to be on any maintenance inhaler Continue p.r.n. albuterol (7) Type 2 diabetes mellitus: Code(s): E11.9 - Type 2 diabetes mellitus without complications Status: Acute Assessment and Plan: Blood sugars reviewed and are generally well controlled. A1c of 6.0 this hospital stay Metformin on hold given acute kidney injury. Likely resume after discharge Continue sliding scale insulin, Accu-Cheks, and hypoglycemic protocol. Subjective Date/time seen: 03/31/20 12:32 Interval history: Patient is a 69 yo M with history of type 2 diabetes mellitus, COPD, hypertension s/p spigelian hernia repair on 03/20/2020 who is seen in follow-up for acute kidney injury secondary to obstructive uropathy. Patient states he feels a lot better again today, I feel better every day . Tolerating PO currently. BM today. No other complaints. Denies f/c/s, headaches, dizziness, lightheadedness, cp/palpitations, sob/cough, n/v/d/c, abd pain, changes in BMs, Avitia discomfort, calf pain/swelling. Review of Systems Rev
--- NOTE | 2020-03-31 13:29 | PM.DS ---
DS: Admitting Diagnosis Admitting Diagnosis Admitting Diagnosis: Weakness, difficulty urinating. DS: Discharge Diagnosis Discharge Diagnosis (1) Acute kidney injury: Code(s): N17.9 - Acute kidney failure, unspecified Status: Acute Assessment and Plan: Likely multifactorial in etiology to include dehydration and obstructive uropathy. Cannot rule out intrinsic kidney injury. Avitia catheter yielded greater than 2 L of urine. Creatinine 17.4 at presentation and has declined to 0.60 today. Appears to have resolved RN contacted Urology today; voiding trial to be done today; if fails trial, then will need a Avitia when discharge. Per Urology, patient to be placed back on daily Flomax and continue Proscar at discharge. F/u with them as outpatient. BMP to be done next week Dr. Lantigua is following and his recommendations are appreciated. (2) Benign prostatic hyperplasia: Qualifiers: Lower urinary tract symptom detail: urinary obstruction Lower urinary tract symptom presence: symptoms present Qualified Code(s): N40.1 - Benign prostatic hyperplasia with lower urinary tract symptoms; N13.8 - Other obstructive and reflux uropathy Code(s): N40.0 - Benign prostatic hyperplasia without lower urinary tract symptoms Status: Acute Assessment and Plan: Avitia catheter placed for retention of greater than 2 L. Urology has been consulted and input is appreciated. Please see above plan Continue tamsulosin home dose 0.4 mg daily at discharge and continue finasteride 5 mg daily at discharge per Urology recommendations Voiding trial today; pending results, may need a Avitia at discharge F/u with Urology (3) Metabolic acidosis: Code(s): E87.2 - Acidosis Status: Resolved Assessment and Plan: Related to renal failure. No anion gap. Bicarb improved from 16 at admission to 29 today. Appreciate nephrology recommendations Monitor BMP next week as outpatient (4) Hyperkalemia: Code(s): E87.5 - Hyperkalemia Status: Acute Assessment and Plan: Potassium 5.7 at presentation, likely related to acute kidney injury/dehydration. improved with IV fluids and is 3.2 today. Replaced this morning BMP next week F/u with PCP (5) Essential hypertension: Code(s): I10 - Essential (primary) hypertension Status: Acute Assessment and Plan: blood pressures reviewed today and generally well controlled in the 140s systolic. He had been off of his medications for 3 days due to nausea. Will d/c amlodipine continue home dose atenolol. Losartan is on hold given ALTHEA; likely resume after discharge (6) COPD with emphysema: Code(s): J43.9 - Emphysema, unspecified Status: Acute Assessment and Plan: No acute issues. He does not appear to be on any maintenance inhaler p.r.n. albuterol during stay F/u with PCP (7) Type 2 diabetes mellitus: Code(s): E11.9 - Type 2 diabetes mellitus without complications Status: Acute Assessment and Plan: Blood sugars reviewed and are generally well controlled. A1c of 6.0 this hospital stay Metformin on hold given acute kidney injury. Likely resume after discharge During stay, sliding scale insulin, Accu-Cheks, and hypoglycemic protocol. DS: Summary Hospital Course Reason for hospitalization: ALTHEA, metabolic acidosis, obstructive uropathy Hospital Course: Patient is a pleasant 69-year-old male with benign prostatic hyperplasia, hypertension, hyperlipidemia, COPD, and type 2 diabetes mellitus who presented to the emergency department on 03/28 with complaints of difficulty urinating and weakness. Patient had an unevent
[2020-03-31 14:00] VITALS: BP 152/74; PULSE 63; RESP 18; TEMP 36.8; O2SAT 92
[2020-03-31 17:59] LABS: Glucose Point of Care 102 (65-105)
--- NOTE | 2020-03-31 18:42 | PC.NURSE ---
Patient unable to void with voiding trial. Bladder scan reflects over 300mL of retained urine. Per Dr. Buenrostro orders, I reinserted the catheter and am discharging the patient. Catheter to be removed in doctor's office.
== END 2020-03-31 19:55 | disposition home or self-care (01) | DRG 683 ==
LOC: ANHED 13:52 → ANH3MEDSUR 21:06 → ANH2MED 04-01 07:04 → ANH3MEDSUR 04-01 07:04
PROVIDERS: Internal Medicine Nephrology; Physician Assistant; Admitting Provider Internal Medicine; Emergency Provider Emergency Medicine; PCP Internal Medicine; Visit Provider Physician Assistant
DX: N17.9 Acute kidney failure, unspecified (principal); E87.2 Acidosis; R33.9 Retention of urine, unspecified; Z87.891 Personal history of nicotine dependence; E11.9 Type 2 diabetes mellitus without complications; I10 Essential (primary) hypertension; F41.9 Anxiety disorder, unspecified; E87.5 Hyperkalemia; J44.9 Chronic obstructive pulmonary disease, unspecified; N40.1 Benign prostatic hyperplasia with lower urinary tract symptoms
CPT/HCPCS: 36415; 51702; 74176; 76775; 80048; 80053; 80069; 81001; 82550; 82570; 83036; 83605; 83690; 83735; 84156; 84300; 85025; 85027; 85999; 87086; 93005; 96374; 99291; A9270; G0378

== ENCOUNTER 2020-04-04 03:18 | Emergency (ER) | payer MEDICARE, SELFPAY ==
[2020-04-04 03:21] VITALS: BP 178/94; PULSE 75; RESP 15; TEMP 36.4; O2SAT 97
--- NOTE | 2020-04-04 03:58 | ED.NAVMDI ---
HPI - Nausea/Vomiting/Diarrhea General Chief complaint: Nausea/Vomiting/Diarrhea Stated complaint: Diarrhea Time Seen by Provider: 04/04/20 03:42 History of Present Illness HPI Narrative: Pt c/o I'm pooping every 5 mins , loose with some formed stools, not watery or bloody, started today. Denies n/v, abd pain or fever. Related Data Home Medications Medication Instructions Recorded Confirmed atenolol 25 mg tablet 25 mg PO DAILY 02/28/20 03/28/20 losartan 100 mg tablet 50 mg PO DAILY 02/28/20 03/28/20 meloxicam 15 mg tablet 15 mg PO DAILY 02/28/20 03/28/20 metformin 500 mg tablet 500 mg PO DAILY 02/28/20 03/28/20 pravastatin 40 mg tablet 40 mg PO DAILY 02/28/20 03/28/20 tamsulosin 0.4 mg capsule 0.4 mg PO DAILY 02/28/20 03/28/20 aspirin 81 mg tablet,delayed 81 mg PO DAILY 02/29/20 03/28/20 release Allergies Allergy/AdvReac Type Severity Reaction Status Date / Time seasonal allergy Allergy Other Uncoded 03/28/20 18:46 Review of Systems Review of Systems: All systems reviewed & are unremarkable except as noted in HPI and below Constitutional: Constitutional: Denies body ache(s), Denies chills, Denies excessive sweating, Denies fatigue, Denies fever(s), Denies headache(s), Denies lethargy, Denies malaise, Denies weakness and Denies weight loss Eyes: Eyes: Denies blurry vision, Denies change in vision and Denies loss of vision ENT: Denies dizziness, Denies ear discharge, Denies headache(s), Denies lip swelling, Denies epistaxis, Denies nasal congestion, Denies neck pain, Denies throat swelling and Denies tongue swelling Cardiovascular: Cardiovascular: Denies chest pain, Denies chest pain at rest, Denies chest pain with activity, Denies diaphoresis, Denies rapid heart rate, Denies edema, Denies irregular heart rhythm, Denies lightheadedness, Denies palpitations, Denies dyspnea and Denies dyspnea on exertion Respiratory: Respiratory: Denies chest congestion, Denies cough, Denies hemoptysis, Denies dyspnea and Denies dyspnea on exertion Gastrointestinal: Gastrointestinal: Denies abdominal pain, Denies melena, Denies hematochezia, Denies nausea, Denies vomiting and Denies hematemesis Musculoskeletal: Musculoskeletal: Denies abnormal gait, Denies deformity, Denies joint swelling, Denies limited range of motion, Denies neck pain and Denies numbness Neurologic: Denies Abnormal speech present, Denies abnormal gait, Denies confusion, Denies dizziness, Denies headache(s), Denies focal weakness, Denies loss of vision, Denies numbness, Denies Other visual disturbances, Denies Sensory deficit (Neuro) and Denies weakness Psychiatric: Psychiatric: Denies confusion, Denies depression, Denies auditory hallucinations, Denies homicidal ideation and Denies suicidal ideation Endocrine: Endocrine: Denies cold intolerance, Denies excessive sweating, Denies fatigue, Denies heat intolerance and Denies palpitations Hematologic/Lymphatic: Hematologic/Lymphatic: Denies easy bleeding and Denies easy bruising Allergic/Immunologic: Allergic/Immunologic: Denies lip swelling, Denies throat swelling and Denies tongue swelling [facility] Social History Social History Social History: Surrogate decision maker: Evelyn Kaye, daughter. Code status: Full code. Smoking packs per day: 1 Smoking cigarettes per day: 20.0 Years smoked: 25 Smoking pack-years: 25.00 Smoking status: Former smoker Tobacco type: cigarettes Smoking end date: 07/12/89 Alcohol intake: current Drinks per week: 1 Substance use: never Substance use type: does not use Additional living arrangements comments: Patient lives alone in his own home in [place]. He has been for approximately 2 years. 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 Gender identity (if verbalized by the patient): Male Spiritual care concerns: Yes Exam Const: General:
[2020-04-04] MEDS: SODIUM CHLORIDE 0.9% IV 1,000 ML 999 ML IV CONT (04:08)
[2020-04-04 04:13] LABS: Basophils Percent Auto 0.4 % (0.2-1.2); Eosinophils Absolute Auto 0.3 K/mm3 (0-0.3); Eosinophils Percent Auto 3.3 % (0-4.4); Hematocrit 35.6 % (42.0-52.0); Hemoglobin 11.8 g/dL (14.0-18.0); Immature Granulocyte Absolute 0.03 K/mm3 (0.00-0.031); Immature Granulocyte Percent A 0.3 % (0-0.5); Lymphocytes Absolute Auto 1.24 K/mm3 (0.9-3.2); Lymphocytes Percent Auto 13.1 % (18.3-44.2); Mean Corpuscular HGB Conc 33.1 g/dl (32-36); Mean Corpuscular Hemoglobin 29.5 pg (26-34); Mean Platelet Volume 11.1 fl (7.4-10.4); Monocytes Absolute Auto 0.7 K/mm3 (0.1-0.6); Monocytes Percent Auto 7.6 % (2.6-8.5); Neutrophils Absolute Auto 7.1 K/mm3 (1.3-6.7); Neutrophils Percent Auto 75.3 % (45.5-73.1); Platelet Count Result 145 k/mm3 (150-375); Red Cell Distribution Width 12.4 % (11.5-14.5); White Blood Count 9.5 K/mm3 (4.5-10.0)
[2020-04-04 04:30] LABS: Alanine Aminotransferase 18 U/L (4-50); Albumin Level 3.4 g/dL (3.5-5.1); Alkaline Phosphatase 69 U/L (38-126); Anion Gap 4 mmol/L (8-16); Aspartate Amino Transferase 24 U/L (17-59); Bilirubin,Total 0.4 mg/dL (0.2-1.3); Blood Urea Nitrogen 12 mg/dL (9-20); Calcium 8.6 mg/dL (8.4-10.2); Carbon Dioxide 27 mmol/L (22-30); Chloride 106 mmol/L (98-107); Estimated Glomerular Filt Rate > 60; Glucose 137 mg/dL (75-110); Potassium 3.4 mmol/L (3.4-5.0); Sodium 137 mmol/L (137-145)
[2020-04-04 05:18] VITALS: BP 164/91; PULSE 78; RESP 18; O2SAT 96
[2020-04-04 05:37] VITALS: BP 148/94; PULSE 78; RESP 18; TEMP 36.6; O2SAT 97
== END 2020-04-04 05:38 | disposition home or self-care (01) ==
PROVIDERS: Emergency Provider Emergency Medicine
DX: R19.7 Diarrhea, unspecified (principal); Z79.82 Long term (current) use of aspirin; Z79.84 Long term (current) use of oral hypoglycemic drugs; Z87.891 Personal history of nicotine dependence
CPT/HCPCS: 36415; 80053; 85025; 96360; 99283; J7030

== ENCOUNTER 2020-04-08 16:17 | Emergency (ER) | payer MEDICARE, SELFPAY ==
[2020-04-08 16:41] VITALS: BP 170/92; PULSE 71; RESP 16; TEMP 36.3; O2SAT 99
[2020-04-08 19:48] LABS: Add Urine Microscopic? YES; Appearance Urine Clear (Clear); Bilirubin Urine Negative (Negative); Blood Urine 3+ (Negative); Color Urine Straw (Yellow); Glucose Urine UA Negative (Negative); Ketones Urine Negative (Negative); Leukocyte Esterase Ur Negative LEU/UL (Negative); Mucus Urine Rare /lpf; Nitrate Urine Negative (Negative); Protein Urine 1+ mg/dL (Negative); RBC Urine 0-2 /hpf (0-2); Squamous Epithelial Cell Urine Rare /hpf (Few); Urobilinogen Urine Negative mg/dL (<2.0); WBC Urine 0-3 /hpf
[2020-04-08 19:50] LABS: Specific Grav Ur 1.004 (1.001-1.035)
[2020-04-08 20:27] VITALS: BP 145/73; PULSE 65; RESP 20; TEMP 36.8
--- NOTE | 2020-04-08 20:36 | ED.ABDPAIN ---
HPI - Abdominal Pain General Chief Complaint: Urogenital-Male Stated Complaint: unable to void s/p cath removal Time Seen by Provider: 04/08/20 20:13 Source: patient and family Limitations: no limitations History of Present Illness HPI narrative: Patient had a Avitia catheter for 19 days post surgery, remove the catheter today at his urologist office, 4 hours later patient could not pee came to the emergency room with suprapubic pain. Related Data Home Medications Medication Instructions Recorded Confirmed atenolol 25 mg tablet 25 mg PO DAILY 02/28/20 03/28/20 losartan 100 mg tablet 50 mg PO DAILY 02/28/20 03/28/20 meloxicam 15 mg tablet 15 mg PO DAILY 02/28/20 03/28/20 metformin 500 mg tablet 500 mg PO DAILY 02/28/20 03/28/20 pravastatin 40 mg tablet 40 mg PO DAILY 02/28/20 03/28/20 tamsulosin 0.4 mg capsule 0.4 mg PO DAILY 02/28/20 03/28/20 aspirin 81 mg tablet,delayed 81 mg PO DAILY 02/29/20 03/28/20 release Allergies Allergy/AdvReac Type Severity Reaction Status Date / Time seasonal allergy Allergy Other Uncoded 03/28/20 18:46 Review of Systems Review of Systems: Narrative: CONSTITUTIONAL: Denies fever, chills, or sweats. EYES: Denies visual changes, redness, or discharge. ENT: Denies rhinorrhea, congestion, sore throat, or otalgia. CARDIOVASCULAR: Denies chest pain, palpitations, or edema. RESPIRATORY: Denies cough or dyspnea. GASTROINTESTINAL: Denies abdominal pain, nausea, vomiting, or diarrhea. GENITOURINARY: Denies dysuria or hematuria. SKIN: Denies rash or itching. MUSCULOSKELETAL: Denies back pain, joint pain, or myalgia. NEUROLOGIC: Denies headache, numbness, or weakness. PSYCHIATRIC: Denies anxiety or depression. [facility] Past Medical History Medical History Anxiety Arthritis Benign prostatic hyperplasia Chronic rhinitis COPD with emphysema Essential hypertension Mixed hyperlipidemia Spigelian hernia Status post repair in March 2020. Type 2 diabetes mellitus Surgical History Surgical History History of bilateral inguinal hernia repair History of colonoscopy History of elbow surgery History of hand surgery Related to a crush injury many years ago. History of hemorrhoidectomy History of hernia repair (~03/20/20) Right spigelian incarcerated hernia repair with mesh. Family History Family History Mother Hypertension Colon cancer Rheumatic arteritis High cholesterol Sibling Heart disease Social History Social History Social History: Surrogate decision maker: Evelyn Kaye, daughter. Code status: Full code. Smoking packs per day: 1 Smoking cigarettes per day: 20.0 Years smoked: 25 Smoking pack-years: 25.00 Smoking status: Former smoker Tobacco type: cigarettes Smoking end date: 07/12/89 Alcohol intake: current Drinks per week: 1 Substance use: never Substance use type: does not use Additional living arrangements comments: Patient lives alone in his own home in [place]. He has been for approximately 2 years. 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 Musculoskeletal: Normal range of motion, nontender back Neurologic: A
[2020-04-08 21:42] VITALS: BP 122/70; PULSE 69; RESP 17; O2SAT 99
== END 2020-04-08 21:44 | disposition home or self-care (01) ==
PROVIDERS: Emergency Medicine; Emergency Provider Emergency Medicine; PCP Internal Medicine
DX: N40.1 Benign prostatic hyperplasia with lower urinary tract symptoms (principal); R33.8 Other retention of urine; Z79.82 Long term (current) use of aspirin; Z79.84 Long term (current) use of oral hypoglycemic drugs; E11.9 Type 2 diabetes mellitus without complications; M19.90 Unspecified osteoarthritis, unspecified site; J43.9 Emphysema, unspecified; I10 Essential (primary) hypertension; E78.2 Mixed hyperlipidemia; Z87.891 Personal history of nicotine dependence
CPT/HCPCS: 51702; 81001; 99283

== ENCOUNTER 2020-04-20 18:10 | Emergency (ER) | payer MEDICARE, SELFPAY ==
[2020-04-20 18:23] VITALS: BP 165/94; PULSE 92; RESP 20; TEMP 36.5; O2SAT 98
--- NOTE | 2020-04-20 19:06 | ED.MALEGU ---
HPI - Male Genitourinary General Chief complaint: Urogenital-Male Stated complaint: catheter not draining Time Seen by Provider: 04/20/20 19:05 History of Present Illness HPI Narrative: He began suffering from urinary retention following recent hernia repair surgery. He has had a foleyu placed and removed several times since then. He currently has a sorensen in place and has had no significant drainage since 3 PM. He now has the sensation that his bladder is fully. No pain, nausea, vomiting, fevers. He is on medications for his prostate. He is supposed to have follow-up testing by urology in the near future. Related Data Home Medications Medication Instructions Recorded Confirmed atenolol 25 mg tablet 25 mg PO DAILY 02/28/20 04/17/20 losartan 100 mg tablet 50 mg PO DAILY 02/28/20 04/17/20 meloxicam 15 mg tablet 15 mg PO DAILY 02/28/20 04/17/20 metformin 500 mg tablet 500 mg PO DAILY 02/28/20 04/17/20 pravastatin 40 mg tablet 40 mg PO DAILY 02/28/20 04/17/20 tamsulosin 0.4 mg capsule 0.4 mg PO DAILY 02/28/20 04/17/20 aspirin 81 mg tablet,delayed 81 mg PO DAILY 02/29/20 04/17/20 release Allergies Allergy/AdvReac Type Severity Reaction Status Date / Time seasonal allergy Allergy Other Uncoded 04/11/20 08:53 Review of Systems Review of Systems: All systems reviewed & are unremarkable except as noted in HPI and below Constitutional: Constitutional: Denies chills and Denies fever(s) Cardiovascular: Cardiovascular: Denies chest pain Respiratory: Respiratory: Denies dyspnea Gastrointestinal: Gastrointestinal: Denies abdominal pain Genitourinary: Genitourinary: Denies hematuria Musculoskeletal: Musculoskeletal: Denies back pain Neurologic: Denies dizziness and Denies weakness [facility] Past Medical History Medical History (Updated 04/21/20 @ 00:00 by Devin Padron) Anxiety Arthritis Benign prostatic hyperplasia Chronic rhinitis COPD with emphysema Essential hypertension Mixed hyperlipidemia Spigelian hernia Status post repair in March 2020. Type 2 diabetes mellitus Surgical History Surgical History History of bilateral inguinal hernia repair History of colonoscopy History of elbow surgery History of hand surgery Related to a crush injury many years ago. History of hemorrhoidectomy History of hernia repair (~03/20/20) Right spigelian incarcerated hernia repair with mesh. Family History Family History Mother Hypertension Colon cancer Rheumatic arteritis High cholesterol Sibling Heart disease Social History Social History Social History: Surrogate decision maker: Evelyn Kaye, daughter. Code status: Full code. Smoking packs per day: 1 Smoking cigarettes per day: 20.0 Years smoked: 25 Smoking pack-years: 25.00 Smoking status: Former smoker Tobacco type: cigarettes Smoking end date: 07/12/89 Alcohol intake: current Drinks per week: 1 Substance use: never Substance use type: does not use Additional living arrangements comments: Patient lives alone in his own home in [place]. He has been for approximately 2 years. 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
--- NOTE | 2020-04-20 20:18 | PC.NURSE ---
sorensen cath, 18fr inserted without diff, sterile procedure followed, pt chrissy well.
--- NOTE | 2020-04-20 20:20 | PC.NURSE ---
irrigated sorensen, lg clots passed, sorensen now flowing well.
[2020-04-20 20:54] VITALS: BP 144/82; PULSE 81; RESP 18; TEMP 36.7; O2SAT 97
[2020-04-20 20:59] LABS: Add Urine Microscopic? YES; Appearance Urine Cloudy (Clear); Bilirubin Urine Negative (Negative); Blood Urine 3+ (Negative); Color Urine Yellow (Yellow); Glucose Urine UA Negative (Negative); Ketones Urine Negative (Negative); Leukocyte Esterase Ur Trace LEU/UL (Negative); Mucus Urine Rare /lpf; Nitrate Urine Negative (Negative); Protein Urine 1+ mg/dL (Negative); RBC Urine >75 /hpf (0-2); Specific Grav Ur 1.014 (1.001-1.035); Urobilinogen Urine Negative mg/dL (<2.0); WBC Urine 16-20 /hpf
== END 2020-04-20 20:54 | disposition home or self-care (01) ==
PROVIDERS: Emergency Provider Emergency Medicine; PCP Internal Medicine
DX: T83.091A Other mechanical complication of indwelling urethral catheter, initial encounter (principal); N40.0 Benign prostatic hyperplasia without lower urinary tract symptoms; J43.9 Emphysema, unspecified; E78.2 Mixed hyperlipidemia; E11.9 Type 2 diabetes mellitus without complications; Z79.82 Long term (current) use of aspirin; Z79.84 Long term (current) use of oral hypoglycemic drugs; M19.90 Unspecified osteoarthritis, unspecified site; Z87.891 Personal history of nicotine dependence
CPT/HCPCS: 51702; 81001; 87086; 99283

== ENCOUNTER 2020-05-14 01:27 | Outpatient (CLI) | payer MEDICARE, SELFPAY ==
[2020-05-14 20:51] LABS: SARS-CoV-2 RNA PCR Negative
== END 2020-05-14 01:28 | disposition home or self-care (01) ==
LOC: ANHCOVIDDT 01:27
PROVIDERS: PCP Internal Medicine; Visit Provider Urology
DX: Z01.812 Encounter for preprocedural laboratory examination (principal); Z20.828 Contact with and (suspected) exposure to other viral communicable diseases
CPT/HCPCS: 87635; C9803; U0003

== ENCOUNTER 2020-05-17 13:35 | Observation (INO) | payer MEDICARE, SELFPAY ==
[2020-05-03 15:27] VITALS: BMI 36.3
--- NOTE | 2020-05-13 08:01 | PM.IMHP ---
H&P: HPI History of Present Illness Date/Time: 05/13/20 08:01 Chief complaint: BPH/ Urinary Retention Narrative: Blake Herron is a 69 year old male who was a known to our practice until he recently presented to the emergency room and [facility] with acute urinary retention and bilateral hydronephrosis. He failed voiding trials while on both finasteride and tamsulosin. 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 After failing voiding trials and considering surgical options, including Urolift, laser prostatectomy, TURP he has elected for the latter. He is aware of the risk of this including, but not limited to, persistent urinary retention, postoperative bleeding, adverse cardiopulmonary events, urinary incontinence. Review of Systems Cardiovascular: Cardiovascular: Denies chest pain, Denies lightheadedness, Denies palpitations and Denies dyspnea Respiratory: Respiratory: Denies dyspnea Gastrointestinal: Gastrointestinal: Denies diarrhea, Denies nausea and Denies vomiting Genitourinary: Genitourinary: Denies hematuria and Denies dysuria Endocrine: Endocrine: Denies palpitations [facility] Past Medical History Medical History Anxiety Arthritis Benign prostatic hyperplasia Chronic rhinitis COPD with emphysema Essential hypertension Mixed hyperlipidemia Spigelian hernia Status post repair in March 2020. Type 2 diabetes mellitus Surgical History Surgical History History of bilateral inguinal hernia repair History of colonoscopy History of elbow surgery History of hand surgery Related to a crush injury many years ago. History of hemorrhoidectomy History of hernia repair (~03/20/20) Right spigelian incarcerated hernia repair with mesh. Family History Family History Mother Hypertension Colon cancer Rheumatic arteritis High cholesterol Sibling Heart disease Social History Social History Social History: Surrogate decision maker: Evelyn Kaye, daughter. Code status: Full code. Smoking packs per day: 1 Smoking cigarettes per day: 20.0 Years smoked: 25 Smoking pack-years: 25.00 Smoking status: Former smoker Tobacco type: cigarettes Smoking end date: 07/12/89 Alcohol intake: current Drinks per week: 1 Substance use: never Substance use type: does not use Additional living arrangements comments: Patient lives alone in his own home in [place]. He has been for approximately 2 years. 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 Gender identity (if verbalized by the patient): Male Spiritual care concerns: No Meds Home Medications and Allergies Home Medications Medication Instructions Recorded Confirmed Type atenolol 25 mg tablet 25 mg PO DAILY 02/28/20 05/03/20 History losartan 100 mg tablet 50 mg PO DAILY 02/28/20 05/03/20 History metformin 500 mg tablet 500 mg PO QNOON 02/28/20 05/03/20 History pravastatin 40 mg tablet 40 mg PO DAILY 02/28/20 05/03/20 History tamsulosin 0.4 mg capsule 0.4 mg PO DAILY 02/28/20 05/03/20 History aspirin 81 mg tablet,delayed 81 mg PO DAILY 02/29/20 05/03/20 History release finasteride [Proscar] 5 mg PO QAM #30 tablet 03/31/20 05/03/20 Rx Allergies Allergy/AdvReac Type Severity Reaction Status Date / Time No Known Allergies Allergy Verified 05/03/20 15:03 Assessment and Plan Assessment and plan (1) BPH loc w urin obs/LUTS: Code(s): N40.1 - Benign prostatic hyperplasia with lower urinary tract symptoms Status: Acute (2) Acute urinary retention: Code(s): R33.8 - Other retention of urine Status: Acute Assessment and Plan: TURP
[2020-05-16] VITALS (10 sets, daily range): BP systolic 121–160; BP diastolic 70–89; PULSE 60–76; RESP 10–18; TEMP 36–36.8; O2SAT 95–100
--- NOTE | 2020-05-16 11:29 | WPDHPUPDATE1 ---
History and Physical Update Update Date/Time: 05/16/20 11:29 History and Physical has been reviewed, including an updated exam of the patient. There are NO changes in the patient's condition. Risks, benefits, and alternatives have been discussed and questions answered. Patient agrees to proceed with procedure.
[2020-05-16] MEDS: LACTATED RINGERS 1,000 ML 30 ML IV CONT (13:30)
[2020-05-16 13:59] LABS: Glucose Point of Care 115 (65-105)
--- NOTE | 2020-05-16 14:08 | WPDANESEPPF ---
Anes - Initial Pre Proc Eval Procedure: Operation Date: 05/16/20 15:15 Proposed Procedures p Transurethral Resection Prostate - Bhavin Cash MD Date/Time: 05/16/20 14:08 Surgeon: Bhavin Cash MD Pre Op Diagnosis: BPH/ Urinary Retention Patient Data Age: 69 Gender: M Height: 1.75 m Weight: 110.5 kg Last Vital Signs Temp 36.8 C 05/16/20 13:17 Pulse 76 05/16/20 13:17 Resp 18 05/16/20 13:17 BP 160/88 H 05/16/20 13:17 Pulse Ox 98 05/16/20 13:17 Allergies Allergy/AdvReac Type Severity Reaction Status Date / Time No Known Allergies Allergy Verified 05/16/20 13:10 Home Medications Medication Instructions Recorded Confirmed Type atenolol 25 mg tablet 25 mg PO DAILY 02/28/20 05/16/20 History losartan 100 mg tablet 50 mg PO DAILY 02/28/20 05/16/20 History metformin 500 mg tablet 500 mg PO QNOON 02/28/20 05/16/20 History pravastatin 40 mg tablet 40 mg PO DAILY 02/28/20 05/16/20 History tamsulosin 0.4 mg capsule 0.4 mg PO DAILY 02/28/20 05/16/20 History aspirin 81 mg tablet,delayed 81 mg PO DAILY 02/29/20 05/16/20 History release finasteride [Proscar] 5 mg PO QAM #30 tablet 03/31/20 05/16/20 Rx Laboratory Tests 05/16/20 13:54 POC Capillary Glucose 115 mg/dl H mg/dl (65-105) ECG: Date of Service: 03/28/20 Procedure(s): CA 12 lead EKG Accession Number(s): [id number] cc: ~ Measurements Intervals [place] Rate: 55 P: 53 NE: 184 QRS: -25 QRSD: 89 T: 39 QT: 424 QTc: 406 Interpretive Statements SINUS BRADYCARDIA BASELINE ARTIFACT- I, II, AVR, AVL, V1, V4 BORDERLINE ECG Electronically Signed On 03-28-2020 14:37:25 CDT by Oli Leslie D.O. Dictated By: Oli Leslie DO 03/28/20 1350 Patient hx anesthesia problems: post op nausea/vomiting Family hx anesthesia problems: none PMFSH Past Medical History Medical History (Updated 05/16/20 @ 14:12 by Brennan Esquivel MD) Anxiety Arthritis Benign prostatic hyperplasia BMI 36.0-36.9,adult BPH loc w urin obs/LUTS Chronic rhinitis COPD with emphysema Essential hypertension Essential hypertension Mixed hyperlipidemia Post-operative nausea and vomiting Spigelian hernia Status post repair in March 2020. Type 2 diabetes mellitus Surgical History Surgical History History of bilateral inguinal hernia repair History of colonoscopy History of elbow surgery History of hand surgery Related to a crush injury many years ago. History of hemorrhoidectomy History of hernia repair (~03/20/20) Right spigelian incarcerated hernia repair with mesh. Family History Family History Mother Hypertension Colon cancer Rheumatic arteritis High cholesterol Sibling Heart disease Social History Social History Social History: Surrogate decision maker: Evelyn Kaye, daughter. Code status: Full code. Smoking packs per day: 1 Smoking cigarettes per day: 20.0 Years smoked: 25 Smoking pack-years: 25.00 Smoking status: Former smoker Tobacco type: cigarettes Smoking end date: 07/12/89 Alcohol intake: current Drinks per week: 1 Substance use: never Substance use type: does not use Living arrangements: alone Additional living arrangements comments: Patient lives alone in his own home in [place]. He has been for approximately 2 years. 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 Gender identity (if verbalized by the patient): Male Spiritual care concerns: No
[2020-05-16] MEDS: ceFAZolin 2 GM/D5W 50 ML 2 GM/50 ML BAG IVPB (15:45)
[2020-05-16] MEDS: LIDOCAINE HCL 2% GEL UROJET 10 ML PKG MUCOUS MEM (16:01)
--- NOTE | 2020-05-16 16:57 | SUR.OPER ---
[id number]:[id number]
--- NOTE | 2020-05-16 17:05 | PM.PROC ---
Procedure Note - Detailed Date of procedure: 05/16/20 Pre-op diagnosis: BPH/ Urinary Retention Post-op diagnosis: same Procedure performed: TURP Description of procedure: The patient was brought to the operative suite where he is prepped and draped in routine sterile fashion while in the dorsal lithotomy position after the uneventful induction of a [general LMA/spinal] anesthetic. A 27 Jordanian resectoscope sheath was placed into his bladder. He had no urethral strictures. The patient had trilobar hyperplasia with a small median lobe. The bladder itself was endoscopically normal, showing no mucosal hyperemia, intravesical neoplasm or foreign bodies. There was a single, orthotopic ureteral orifice bilaterally. These orifices were identified and preserved throughout the remainder of the procedure. Attention was first turned to resection of the median lobe. This resection was undertaken from the bladder neck to the verumontanum and carried out until the transverse fibers of the bladder neck were identified. The left lateral lobe was then resected starting at the 6 o'clock position, working counter clockwise to the 12 o'clock position. Again, resection was carried out from the bladder neck to the verumontanum until the capsular fibers of the prostate were identified. The right lateral lobe was resected in a similar fashion starting at the 6 o'clock position working clockwise to the 12 o'clock position and carried out until the capsular fibers of the prostate were identified. Apical tissue was then circumferentially resected. All chips were evacuated from the bladder using an [employer] evacuator. Hemostasis was obtained with electric cautery. The ureteral orifices were again inspected and found to be without injury. Estimated blood loss throughout this procedure was 100cc. The patient was taken to recovery room having tolerated this well. Anesthesia: GLMA Surgeon: Bhavin Cash MD Estimated blood loss (mL): 100 Drains: Yes (24F hematuria catheter) Packing: No Pathology: yes Complications: No immediate complications Condition: stable Disposition: PACU
[2020-05-16 17:25] LABS: Glucose Point of Care 114 (65-105)
--- NOTE | 2020-05-16 18:05 | ADMGEN ---
This patient, Blake Herron, was admitted to Medical Room 248-. Patient/family oriented to hospital policies and general routines including ID bracelet, bed and alarms, visiting hours, pain management, procedures, bathroom and other care routines, personal items, smoking policy, room service/diet, and visiting hours. Information on how to activate the Rapid Response Team has been discussed. Patient/Family are encouraged to report perceived risks to care and to ask questions if they do not understand what they are told or what they should do.
[2020-05-16 20:07] LABS: Glucose Point of Care 295 (65-105)
[2020-05-16] MEDS: DOCUSATE SODIUM 100 MG CAPSULE PO (21:04)
[2020-05-17] VITALS (7 sets, daily range): BP systolic 105–127; BP diastolic 61–79; PULSE 55–78; RESP 14–19; TEMP 35.8–36.8; O2SAT 96–98
[2020-05-17 05:52] LABS: Hematocrit 37.4 % (42.0-52.0); Hemoglobin 12.4 g/dL (14.0-18.0)
[2020-05-17 05:58] LABS: Anion Gap 9 mmol/L (8-16); Blood Urea Nitrogen 14 mg/dL (9-20); Calcium 8.7 mg/dL (8.4-10.2); Carbon Dioxide 25 mmol/L (22-30); Chloride 105 mmol/L (98-107); Estimated CRCL calculation 118 ml/min; Estimated Glomerular Filt Rate > 60; Glucose 136 mg/dL (75-110); Potassium 4.3 mmol/L (3.4-5.0); Sodium 139 mmol/L (137-145)
--- NOTE | 2020-05-17 07:04 | WPDUROPN2 ---
Progress Note: A&P Assessment and Plan (1) BPH loc w urin obs/LUTS: Code(s): N40.1 - Benign prostatic hyperplasia with lower urinary tract symptoms Status: Acute (2) Acute urinary retention: Code(s): R33.8 - Other retention of urine Status: Acute Assessment and Plan: Doing well POD #1 TURP Stop CBI / voiding trial later today or tomorrow. Urinary retention x2 months - discharge with indwelling Avitia an option if he fails voiding trial. Subjective Subjective Date/Time Seen: 05/17/20 07:04 POD #1 TURP Comfortable, no complaints Review of Systems Cardiovascular: Cardiovascular: Denies chest pain, Denies lightheadedness, Denies palpitations and Denies dyspnea Respiratory: Respiratory: Denies dyspnea Gastrointestinal: Gastrointestinal: Denies diarrhea, Denies nausea and Denies vomiting Genitourinary: Genitourinary: Denies hematuria and Denies dysuria Endocrine: Endocrine: Denies palpitations Exam Const: General: no acute distress Resp: Effort & Inspection: normal respiratory effort GI: Inspection: non-distended GI Palp: No abdominal tenderness and No Guarding due to palpation present (GI) Auscultation: normal bowel sounds Objective Data Vital Signs Vital Signs: Vital Signs - 24 hr 05/16/20 13:17 05/16/20 17:08 05/16/20 17:20 Temperature 98.2 F 96.9 F L Pulse Rate 76 60 67 Respiratory Rate 18 10 L 16 Blood Pressure 160/88 H 128/72 139/77 Pulse Oximetry 98 100 100 05/16/20 17:35 05/16/20 17:50 05/16/20 18:05 Temperature 96.8 F L Pulse Rate 70 67 67 Respiratory Rate 14 14 18 Blood Pressure 151/89 H 153/89 H 138/73 Pulse Oximetry 95 96 98 05/16/20 18:20 05/16/20 18:50 05/16/20 19:43 Temperature 97.1 F L 97.3 F L 97.8 F Pulse Rate 65 73 70 Respiratory Rate 16 16 18 Blood Pressure 130/70 136/76 132/86 Pulse Oximetry 97 95 97 05/16/20 22:00 05/17/20 02:00 05/17/20 06:00 Temperature 97.6 F 97.8 F 97.8 F Pulse Rate 69 55 L 64 Respiratory Rate 18 14 16 Blood Pressure 121/79 124/70 127/79 Pulse Oximetry 96 97 96 Intake/Output Intake/Output: Intake & Output 05/14/20 05/15/20 05/16/20 05/17/20 23:59 23:59 23:59 23:59 Intake Total 300 50 Output Total 47959 Balance 300 -42675 Meds/Results Medications: Active Medications Generic Name Dose Route Start Last Admin Trade Name Freq PRN Reason Stop Dose Admin Hydrocodone Bitart/Acetaminophen 1 tab 05/16/20 17:58 Hydrocodone/Acetaminophen (*Crx) 5-325 Mg Tablet PO Q4H PRN Pain Rated 1-6 Atenolol 25 mg 05/17/20 09:00 Atenolol 25 Mg Tablet PO DAILY [facility] Cephalexin HCl 500 mg 05/17/20 09:00 Cephalexin 500 Mg Capsule PO QID [facility] Dextrose 12.5 gm 05/16/20 17:12 Dextrose 50% 25 Gm/50 Ml Syringe IV PUSH PRN PRN Hypoglycemia Protocol Docusate Sodium 100 mg 05/16/20 21:00 05/16/20 21:04 Docusate Sodium 100 Mg Capsule PO 100 mg Q12HR JOVANA Administration Glucagon 1 mg 05/16/20 17:12 Glucagon For Inj 1 Mg Vial IM PRN PRN Hypoglycemia Protocol Glucose 15 gm 05/16/20 17:12 Glucose Oral Gel 15 Gm Of Glucse In 37.5 Gm Tube PO PRN PRN Hypoglycemia Protocol Hyoscyamine 0.125 mg 05/16/20 17:58 Hyoscyamine Sulfate 0.125 Mg Tablet SUBLINGUAL Q6H PRN Bladder Spasm Dextrose 1,000 mls @ 100 mls/hr 05/16/20 17:12 Dextrose 5% 1,000 Ml IVPB PRN PRN Hypoglycemia Protocol Cefazolin Sodium 1 gm in 50 mls @ 100 mls/hr 05/17/20 00:00 05/17/20 01:00 Ancef 1 Gm/D5w 50 Ml Pm IVPB 05/17/20 08:29 Infused Q8H [facility] Infusion Insulin Aspart 2 - 5 units 05/17/20 08:00 Insulin Aspart (*Bkc) 100 Units/Ml SUB-Q TIDWM [facility] Protocol Losartan Potassium 50 mg 05/17/20 09:00 Losartan Potassium 50 Mg Tablet PO DAILY [facility] Metformin HCl 500 mg 05/17/20 12:00 Metformin Hcl 500 Mg Tablet PO 1200 [facility] Morphine Sulfate 2 mg 05/16/20
[2020-05-17 07:55] LABS: Glucose Point of Care 136 (65-105)
--- NOTE | 2020-05-17 08:15 | WPDANESPN ---
Anes - Prog Note Post-Op Date/Time: 05/17/20 08:15 Cardiovascular status: normal Respiratory status: normal Airway patency: baseline Mental status: baseline Post-Op hydration status: normal Vital Signs: Last Vital Signs Temp 36.6 C 05/17/20 06:00 Pulse 64 05/17/20 06:00 Resp 16 05/17/20 06:00 BP 127/79 05/17/20 06:00 Pulse Ox 96 05/17/20 06:00 Pain Score (VAS): 08/21 I/O: Intake & Output 05/16/20 05/17/20 05/17/20 23:59 07:59 15:59 Intake Total 250 50 Output Total 55094 Balance 250 -60834 Laboratory Tests 05/17/20 05:23 05/17/20 05:23 05/16/20 05/16/20 05/16/20 13:54 17:23 19:56 Hgb Hct Sodium Potassium Chloride Carbon Dioxide Anion Gap BUN Creatinine Estim Creat Clear Calc Estimated GFR Glucose POC Capillary Glucose 115 H 114 H 295 H Calcium 05/17/20 05/17/20 05/17/20 05:23 05:23 07:39 Hgb 12.4 L Hct 37.4 L Sodium 139 Potassium 4.3 Chloride 105 Carbon Dioxide 25 Anion Gap 9 BUN 14 Creatinine 0.60 L Estim Creat Clear Calc 118 Estimated GFR > 60 Glucose 136 H POC Capillary Glucose 136 H Calcium 8.7 Post-procedural complaints: none Patient Feedback: Patient satisfied with anesthetic care.
[2020-05-17] MEDS: atenoloL 25 MG TABLET PO (08:17)
[2020-05-17] MEDS: CEPHALEXIN 500 MG CAPSULE PO ×4 (08:18→21:14)
[2020-05-17] MEDS: PRAVASTATIN SODIUM 20 MG TABLET 40 MG PO (08:18)
[2020-05-17] MEDS: LOSARTAN POTASSIUM 50 MG TABLET PO (08:18)
[2020-05-17] MEDS: DOCUSATE SODIUM 100 MG CAPSULE PO ×2 (08:18→21:14)
[2020-05-17 11:49] LABS: Glucose Point of Care 130 (65-105)
[2020-05-17] MEDS: metFORMIN HCL 500 MG TABLET PO (12:08)
[2020-05-18 02:49] LABS: Glucose Point of Care 109 (65-105)
[2020-05-18 02:49] LABS: Glucose Point of Care 135 (65-105)
[2020-05-18 06:00] VITALS: BP 116/70; PULSE 60; RESP 18; TEMP 35.9; O2SAT 98
[2020-05-18 07:44] LABS: Glucose Point of Care 117 (65-105)
--- NOTE | 2020-05-18 08:12 | WPDUROPN2 ---
Progress Note: A&P Assessment and Plan (1) Acute urinary retention: Code(s): R33.8 - Other retention of urine Status: Acute (2) BPH loc w urin obs/LUTS: Code(s): N40.1 - Benign prostatic hyperplasia with lower urinary tract symptoms Status: Acute Assessment and Plan: Doing well POD #2 - urine clear. Voiding trial today. Home after lunch - +/- Avitia catheter depending on voiding trial. Subjective Subjective Date/Time Seen: 05/18/20 08:12 POD #2 - comfortable, urine clear. Review of Systems Cardiovascular: Cardiovascular: Denies chest pain, Denies lightheadedness, Denies palpitations and Denies dyspnea Respiratory: Respiratory: Denies dyspnea Gastrointestinal: Gastrointestinal: Denies diarrhea, Denies nausea and Denies vomiting Genitourinary: Genitourinary: Denies hematuria and Denies dysuria Endocrine: Endocrine: Denies palpitations Exam Const: General: no acute distress Resp: Effort & Inspection: normal respiratory effort GI: Inspection: non-distended GI Palp: No abdominal tenderness and No Guarding due to palpation present (GI) Auscultation: normal bowel sounds Objective Data Vital Signs Vital Signs: Vital Signs - 24 hr 05/17/20 08:17 05/17/20 10:00 05/17/20 14:00 Temperature 98.3 F 97.1 F L Pulse Rate 60 72 64 Respiratory Rate 17 19 Blood Pressure 107/61 105/66 Pulse Oximetry 96 96 05/17/20 19:28 05/17/20 22:07 05/18/20 06:00 Temperature 98.2 F 96.5 F L 96.7 F L Pulse Rate 78 67 60 Respiratory Rate 19 18 18 Blood Pressure 121/62 127/66 116/70 Pulse Oximetry 98 97 98 Intake/Output Intake/Output: Intake & Output 05/15/20 05/16/20 05/17/20 05/18/20 23:59 23:59 23:59 23:59 Intake Total 300 1470 400 Output Total 30771 Balance 300 -55304 400 Meds/Results Medications: Active Medications Generic Name Dose Route Start Last Admin Trade Name Freq PRN Reason Stop Dose Admin Hydrocodone Bitart/Acetaminophen 1 tab 05/16/20 17:58 Hydrocodone/Acetaminophen (*Crx) 5-325 Mg Tablet PO Q4H PRN Pain Rated 1-6 Atenolol 25 mg 05/17/20 09:00 05/17/20 08:17 Atenolol 25 Mg Tablet PO 25 mg DAILY JOVANA Administration Cephalexin HCl 500 mg 05/17/20 09:00 05/17/20 21:14 Cephalexin 500 Mg Capsule PO 500 mg QID JOVANA Administration Dextrose 12.5 gm 05/16/20 17:12 Dextrose 50% 25 Gm/50 Ml Syringe IV PUSH PRN PRN Hypoglycemia Protocol Docusate Sodium 100 mg 05/16/20 21:00 05/17/20 21:14 Docusate Sodium 100 Mg Capsule PO 100 mg Q12HR JOVANA Administration Glucagon 1 mg 05/16/20 17:12 Glucagon For Inj 1 Mg Vial IM PRN PRN Hypoglycemia Protocol Glucose 15 gm 05/16/20 17:12 Glucose Oral Gel 15 Gm Of Glucse In 37.5 Gm Tube PO PRN PRN Hypoglycemia Protocol Hyoscyamine 0.125 mg 05/16/20 17:58 Hyoscyamine Sulfate 0.125 Mg Tablet SUBLINGUAL Q6H PRN Bladder Spasm Dextrose 1,000 mls @ 100 mls/hr 05/16/20 17:12 Dextrose 5% 1,000 Ml IVPB PRN PRN Hypoglycemia Protocol Insulin Aspart 2 - 5 units 05/17/20 08:00 05/18/20 07:50 Insulin Aspart (*Bkc) 100 Units/Ml SUB-Q Not Given [facility] Protocol Losartan Potassium 50 mg 05/17/20 09:00 05/17/20 08:18 Losartan Potassium 50 Mg Tablet PO 50 mg DAILY JOVANA Administration Metformin HCl 500 mg 05/17/20 12:00 05/17/20 12:08 Metformin Hcl 500 Mg Tablet PO 500 mg 1200 JOVANA Administration Morphine Sulfate 2 mg 05/16/20 17:58 Morphine Sulfate (*Crx) 2 Mg/Ml Inj IV PUSH Q2H PRN Pain Rated 7-10 Naloxone HCl 0.1 mg 05/16/20 17:58 Naloxone Hcl 0.4 Mg/Ml Vial IV PUSH Q2M PRN Opiate Reversal Ondansetron HCl 4 mg 05/16/20 17:58 Ondansetron Inj 4 Mg/2 Ml Vial IV PUSH Q12H PRN Nausea And Vomiting Pravastatin Sodium 40 mg 05/17/20 09:00 05/17/20 08:18 Pravastatin Sodium 20 Mg Tablet PO 40 mg
[2020-05-18 08:18] VITALS: PULSE 60
[2020-05-18] MEDS: PRAVASTATIN SODIUM 20 MG TABLET 40 MG PO (08:18)
[2020-05-18] MEDS: LOSARTAN POTASSIUM 50 MG TABLET PO (08:18)
[2020-05-18] MEDS: DOCUSATE SODIUM 100 MG CAPSULE PO (08:18)
[2020-05-18] MEDS: CEPHALEXIN 500 MG CAPSULE PO ×2 (08:18→12:17)
[2020-05-18] MEDS: atenoloL 25 MG TABLET PO (08:18)
[2020-05-18 11:51] LABS: Glucose Point of Care 104 (65-105)
[2020-05-18] MEDS: metFORMIN HCL 500 MG TABLET PO (12:17)
[2020-05-18 14:00] VITALS: BP 143/70; PULSE 82; RESP 16; TEMP 36.7; O2SAT 97
--- NOTE | 2020-05-23 07:16 | PM.DS ---
DS: Admitting Diagnosis Admitting Diagnosis Admitting Diagnosis: BPH/ Urinary Retention DS: Discharge Diagnosis Discharge Diagnosis (1) BPH loc w urin obs/LUTS: Code(s): N40.1 - Benign prostatic hyperplasia with lower urinary tract symptoms Status: Acute DS: Summary Time Spent with Patient Time attestation: Total time spent providing and/or coordinating discharge services: 30min. This patient with longstanding prostatism refractory for medical management was admitted on the morning of his planned TURP. The procedure was undertaken on that same day in an uneventful fashion. His post-operative course was, likewise, uneventful. On the evening of the procedure he was tolerating a diet. On POD#1 his urine was clear on CBI. The urine remained clear and, therefore, the catheter was removed the following morning. The patient was observed for several hours but wa unable to void. He was discharged with an indwelling catheter with plans to f/u for voiding trial the following week. He was discharged with careful instruction on limiting physical activity x2 weeks and plans to f/ in 2-3 weeks. At discharge he was comfortable and tolerating a diet. Exam Const: General: no acute distress Resp: Effort & Inspection: normal respiratory effort GI: Inspection: non-distended GI Palp: No abdominal tenderness and No Guarding due to palpation present (GI) Auscultation: normal bowel sounds DS: Data Data Completed and Pending Completed studies during hospitalization: Pending at discharge 05/16/20 16:08 Surgical [PTH] Routine Discharge Plan Discharge Attending physician on discharge: Bhavin Cash Consulting providers: Lucas Cook Discharging Clinician: Bhavin Cash Patient Disposition: Home, Self-Care Activity: may shower Diet: regular Discharge Instructions: 1) Activity: No lifting/straining >15lbs. x2 weeks. 2) Diet: Resume normal pre-admission diet. 3) Follow-up: 2-3 weeks / call office for appointment ([phone]). Patient Instructions: Aspirin (By mouth), Avitia Catheter Placement and Care (DC), Transurethral Prostatectomy (DC) Follow-up/Referrals: Bhavin Cash MD [Physician] - Discharge Medications: New hydrocodone-acetaminophen 5-325 mg tablet 1 - 2 tablet PO Q6H PRN (Reason: pain) Qty: 20 RF: 0 docusate sodium [Colace] 100 mg capsule 100 mg PO DAILY Qty: 30 RF: 0 ciprofloxacin HCl 500 mg tablet 500 mg PO Q12H Qty: 6 RF: 0 Continued losartan 100 mg tablet 50 mg PO DAILY RF: 0 pravastatin 40 mg tablet 40 mg PO DAILY RF: 0 atenolol 25 mg tablet 25 mg PO DAILY RF: 0 metformin 500 mg tablet 500 mg PO QNOON RF: 0 Held aspirin [Adult Low Dose Aspirin] 81 mg tablet,delayed release (DR/EC) 81 mg PO DAILY RF: 0 Hold Instructions: Resume on 05/20/20. Discontinued tamsulosin 0.4 mg capsule 0.4 mg PO DAILY RF: 0 finasteride [Proscar] 5 mg Tablet 5 mg PO QAM Qty: 30 RF: 0 Date of admission: 05/17/20 13:35 Primary Care Provider: Mary Smith Admitting Provider: Bhavin Cash Attending physician on admission: Bhavin Cash
== END 2020-05-18 16:25 | disposition home or self-care (01) ==
LOC: ANHSURGERY 16:56 → ANH2MED 16:56
PROVIDERS: Admitting Provider Urology; PCP Internal Medicine; Visit Provider Urology
PROC: 0VT08ZZ Resection of Prostate, Via Natural or Artificial Opening Endoscopic (ICD-10-PCS; CPT 52601; principal; 2020-05-16 15:15)
DX: N40.1 Benign prostatic hyperplasia with lower urinary tract symptoms (principal); R33.8 Other retention of urine; J43.9 Emphysema, unspecified; E11.9 Type 2 diabetes mellitus without complications; I10 Essential (primary) hypertension; E78.2 Mixed hyperlipidemia; Z79.82 Long term (current) use of aspirin; Z79.84 Long term (current) use of oral hypoglycemic drugs; Z87.891 Personal history of nicotine dependence
CPT/HCPCS: 52601; 36415; 80048; 85014; 85018; 88305; A9270; C1758; G0378; J0690; J1100; J2250; J2405; J2704; J3010; J7120

== ENCOUNTER 2020-05-21 21:44 | Emergency (ER) | payer MEDICARE, SELFPAY ==
[2020-05-21 21:46] VITALS: BP 129/91; PULSE 104; RESP 18; TEMP 36.9; O2SAT 97
--- NOTE | 2020-05-21 22:17 | ED.GENADULT ---
HPI - General Adult General Chief complaint: Urogenital-Male Stated complaint: catheter Time Seen by Provider: 05/21/20 22:14 Source: RN notes reviewed History of Present Illness HPI narrative: Patient presents emergency department from home for Avitia catheter malfunction. Patient states he had a TURP procedure done by Dr. Cash on 16 May. States he had a Avitia since that time and was seen in the office today and the Avitia was changed. He states that this evening he noticed some decreased urine from the Avitia and felt he needed to urinate went to urinate and urinated around the Avitia catheter he believes is blocked at this time. Denies any fevers or chills abdominal pain nausea vomiting or any other symptoms patient is currently on antibiotics recall the name but states he is taking them as prescribed Related Data Home Medications Medication Instructions Recorded Confirmed atenolol 25 mg tablet 25 mg PO DAILY 02/28/20 05/16/20 losartan 100 mg tablet 50 mg PO DAILY 02/28/20 05/16/20 metformin 500 mg tablet 500 mg PO QNOON 02/28/20 05/16/20 pravastatin 40 mg tablet 40 mg PO DAILY 02/28/20 05/16/20 aspirin 81 mg tablet,delayed 81 mg PO DAILY 02/29/20 05/16/20 release Allergies Allergy/AdvReac Type Severity Reaction Status Date / Time No Known Allergies Allergy Verified 05/16/20 19:05 Review of Systems Review of Systems: Narrative: Gen.: Denies fevers or chills Respiratory: Denies shortness of breath or cough CV: Denies chest pain GI: Denies abdominal pain nausea, emesis or diarrhea see HPI Musculoskeletal: Denies back pain or muscle pain Neuro: Denies numbness, tingling, weakness or focal weakness Skin: Denies rash Except as documented, all other systems reviewed and negative PMFSH Past Medical History Medical History Anxiety Arthritis Benign prostatic hyperplasia BMI 36.0-36.9,adult BPH loc w urin obs/LUTS Chronic rhinitis COPD with emphysema Essential hypertension Essential hypertension Mixed hyperlipidemia Post-operative nausea and vomiting Spigelian hernia Status post repair in March 2020. Type 2 diabetes mellitus Surgical History Surgical History History of bilateral inguinal hernia repair History of colonoscopy History of elbow surgery History of hand surgery Related to a crush injury many years ago. History of hemorrhoidectomy History of hernia repair (~03/20/20) Right spigelian incarcerated hernia repair with mesh. Family History Family History Mother Hypertension Colon cancer Rheumatic arteritis High cholesterol Sibling Heart disease Social History Social History Social History: Surrogate decision maker: Evelyn Kaye, daughter. Code status: Full code. Smoking packs per day: 1 Smoking cigarettes per day: 20.0 Years smoked: 25 Smoking pack-years: 25.00 Smoking status: Former smoker Tobacco type: cigarettes Smoking end date: 07/12/89 Alcohol intake: current Drinks per week: 1 Substance use: never Substance use type: does not use Additional living arrangements comments: Patient lives alone in his own home in [place]. He has been for approximately 2 years. 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 No clubbing, cyanosis or edema. NEURO: A
--- NOTE | 2020-05-21 22:55 | PC.NURSE ---
2255 - Sorensen removed patient arrived with, new 20 armenian sorensen placed per VO from MD Gusman. 600mL of urine output obtained in sorensen bag. Red tint noted to urine.
[2020-05-21 23:30] VITALS: BP 133/87; PULSE 98; RESP 15; O2SAT 99
== END 2020-05-21 23:33 | disposition home or self-care (01) ==
PROVIDERS: Emergency Provider Emergency Medicine; PCP Internal Medicine
DX: T83.011A Breakdown (mechanical) of indwelling urethral catheter, initial encounter (principal); Z87.891 Personal history of nicotine dependence; F41.9 Anxiety disorder, unspecified; M19.90 Unspecified osteoarthritis, unspecified site; J44.9 Chronic obstructive pulmonary disease, unspecified; I10 Essential (primary) hypertension; E78.5 Hyperlipidemia, unspecified; E11.9 Type 2 diabetes mellitus without complications; Z79.84 Long term (current) use of oral hypoglycemic drugs
CPT/HCPCS: 87086; 99283

== ENCOUNTER 2020-07-15 08:37 | Outpatient (CLI) | payer MEDICARE, SELFPAY ==
[2020-07-15 09:00] LABS: Add Urine Microscopic? YES; Appearance Urine Clear (Clear); Bilirubin Urine Negative (Negative); Blood Urine 1+ (Negative); Color Urine Yellow (Yellow); Glucose Urine UA Negative (Negative); Ketones Urine Negative (Negative); Leukocyte Esterase Ur 1+ (Negative); Nitrate Urine Negative (Negative); Protein Urine Trace (Negative); Urobilinogen Urine 0.2 mg/dL (0.2-1.0)
[2020-07-15 09:12] LABS: Hemoglobin A1C 5.9 % (<5.7)
[2020-07-15 09:19] LABS: Bacteria Urine Trace /hpf; RBC Urine 0-2 /hpf (0-2); Squamous Epithelial Cell Urine Rare /hpf (Few)
[2020-07-15 09:26] LABS: Creatinine Urine 70.88 mg/dL (40-278)
[2020-07-15 09:30] LABS: Alanine Aminotransferase 24 U/L (16-63); Alkaline Phosphatase 91 U/L (46-116); Anion Gap 9 mmol/L (8-16); Aspartate Amino Transferase 15 U/L (15-37); Bilirubin,Total 0.4 mg/dL (0.00-1.00); Blood Urea Nitrogen 16 mg/dL (7-18); Calcium 9.1 mg/dL (8.5-10.1); Carbon Dioxide 28 mmol/L (21-32); Chloride 104 mmol/L (98-108); Cholesterol 192 mg/dL (0-200); Creatine Kinase 67 U/L (39-308); Estimated Glomerular Filt Rate > 60; Glucose 134 mg/dL (70-99); HDL Direct 48 mg/dL (40-60); LDL Cholesterol Calculated 117 mg/dL (<130); Osmolality Calculated 295 mOsm/kg (285-295); Potassium 4.3 mmol/L (3.5-5.1); Prostate Specific Antigen 2.5 ng/mL (< OR = 4.0); Sodium 141 mmol/L (136-145); Total Protein 7.1 g/dL (6.4-8.2); Triglycerides 134 mg/dL (0-150)
[2020-07-15 09:39] LABS: MALB Creatinine Ratio 171.4 mg/g (0-30); Microalbumin Urine Random 121.5 mg/L
== END 2020-07-15 08:38 | disposition home or self-care (01) ==
LOC: CHSLAB 08:39
PROVIDERS: PCP Internal Medicine; Visit Provider Internal Medicine
DX: E11.9 Type 2 diabetes mellitus without complications (principal); I10 Essential (primary) hypertension; E78.2 Mixed hyperlipidemia; Z12.5 Encounter for screening for malignant neoplasm of prostate; R31.9 Hematuria, unspecified
CPT/HCPCS: 36415; 80053; 80061; 81001; 82043; 82550; 83036; 84153; 87086; G0103

== ENCOUNTER 2020-07-25 12:30 | Outpatient (CLI) | payer MEDICARE, SELFPAY ==
--- NOTE | ~2020-07-25 | CT_ITS ---
EXAMINATION:CT lung screening DATE: 07/25/2020 13:08 INDICATION: Encounter for screening for malignant neoplasms of respiratory organs. Smoker who quit 15 years ago with 35 pack year history. TECHNIQUE: Computed tomography (CT) of the chest was performed without intravenous contrast. Automate d exposure control and iterative reconstruction technique were employed. The dose-length product (DLP ) was 439.63 mGy-cm. COMPARISON: Chest CT 12/26/2018 FINDINGS: There are calcified pleural plaques bilaterally, which may be seen with asbestosis exposure . There are two 3 mm nodules in left lower lobe. There is a 3 mm nodule in left upper lobe. There are 4 mm and 3 mm nodule at left major fissure without change. No pleural effusion. The heart size is no rmal. No pericardial effusion. There are coronary artery calcifications. There are gallstones in the gallbladder, which is normal in size. There is mild thoracic spondylosis. IMPRESSION: 1. Lung-RADS category 2: Benign appearance or behavior. Continue annual screening with noncontrast lo w-dose chest CT in 12 months. Reviewed, dictated and finalized at location A. SPLICER IMPRESSION: 1. Lung-RADS category 2: Benign appearance or behavior. Continue annual screeni ng with noncontrast low-dose chest CT in 12 months.
== END 2020-07-25 12:31 | disposition home or self-care (01) ==
LOC: CHSIMG 12:32
PROVIDERS: PCP Internal Medicine; Visit Provider Internal Medicine
DX: Z12.2 Encounter for screening for malignant neoplasm of respiratory organs (principal); Z87.891 Personal history of nicotine dependence
CPT/HCPCS: 71271

== ENCOUNTER 2020-12-31 07:54 | Outpatient (CLI) | payer MEDICARE, SELFPAY ==
[2020-12-31 08:11] LABS: Add Urine Microscopic? YES; Appearance Urine Clear (Clear); Bilirubin Urine Negative (Negative); Blood Urine Negative (Negative); Color Urine Light Yellow (Yellow); Glucose Urine UA Negative (Negative); Ketones Urine Negative (Negative); Leukocyte Esterase Ur Negative (Negative); Nitrate Urine Negative (Negative); Protein Urine Trace (Negative); Specific Grav Ur 1.025 (1.010-1.020); Urobilinogen Urine 0.2 mg/dL (0.2-1.0)
[2020-12-31 08:16] LABS: RBC Urine None seen /hpf (0-2); Squamous Epithelial Cell Urine Few /hpf (Few); WBC Urine None seen /hpf (0-3)
[2020-12-31 08:17] LABS: Bacteria Urine None seen /hpf
[2020-12-31 09:03] LABS: Alanine Aminotransferase 25 U/L (16-63); Albumin Level 3.7 g/dL (3.4-5.0); Alkaline Phosphatase 104 U/L (46-116); Anion Gap 11 mmol/L (8-16); Aspartate Amino Transferase 12 U/L (15-37); Bilirubin,Total 0.3 mg/dL (0.00-1.00); Blood Urea Nitrogen 15 mg/dL (7-18); Calcium 8.9 mg/dL (8.5-10.1); Carbon Dioxide 27 mmol/L (21-32); Chloride 105 mmol/L (98-108); Cholesterol 150 mg/dL (0-200); Estimated Glomerular Filt Rate > 60; Glucose 121 mg/dL (70-99); HDL Direct 44 mg/dL (40-60); LDL Cholesterol Calculated 93 mg/dL (<130); Lactate Dehydrogenase 154 U/L (85-227); Osmolality Calculated 297 mOsm/kg (285-295); Potassium 4.4 mmol/L (3.5-5.1); Sodium 143 mmol/L (136-145); Total Protein 6.5 g/dL (6.4-8.2); Triglycerides 63 mg/dL (0-150)
[2020-12-31 10:08] LABS: Hemoglobin A1C 6.3 % (<5.7)
== END 2020-12-31 07:55 | disposition home or self-care (01) ==
LOC: CHSLAB 07:56
PROVIDERS: PCP Internal Medicine; Visit Provider Internal Medicine
DX: E78.2 Mixed hyperlipidemia (principal); I10 Essential (primary) hypertension; E11.9 Type 2 diabetes mellitus without complications
CPT/HCPCS: 36415; 80053; 80061; 81001; 83036; 83615

== ENCOUNTER 2021-07-21 07:56 | Outpatient (CLI) | payer MEDICARE, SELFPAY ==
[2021-07-21 08:08] LABS: Add Urine Microscopic? YES; Appearance Urine Clear (Clear); Bilirubin Urine Negative (Negative); Blood Urine Negative (Negative); Color Urine Light Yellow (Yellow); Glucose Urine UA Negative (Negative); Ketones Urine Negative (Negative); Leukocyte Esterase Ur Trace (Negative); Nitrate Urine Negative (Negative); Protein Urine Negative (Negative); Urobilinogen Urine 0.2 mg/dL (0.2-1.0)
[2021-07-21 08:27] LABS: Creatinine Urine 66.36 mg/dL (40-278); Hemoglobin A1C 6.1 % (<5.7); MALB Creatinine Ratio 137.1 mg/g (0-30)
[2021-07-21 08:33] LABS: RBC Urine None seen /hpf (0-2); WBC Urine 0-3 /hpf (0-3)
[2021-07-21 08:34] LABS: Bacteria Urine Trace /hpf
[2021-07-21 09:20] LABS: Alanine Aminotransferase 40 U/L (16-63); Albumin Level 3.6 g/dL (3.4-5.0); Alkaline Phosphatase 100 U/L (46-116); Anion Gap 8 mmol/L (8-16); Aspartate Amino Transferase 20 U/L (15-37); Bilirubin,Total 0.5 mg/dL (0.00-1.00); Blood Urea Nitrogen 16 mg/dL (7-18); Calcium 8.6 mg/dL (8.5-10.1); Carbon Dioxide 29 mmol/L (21-32); Chloride 104 mmol/L (98-108); Cholesterol 157 mg/dL (0-200); Creatine Kinase 111 U/L (39-308); Estimated Glomerular Filt Rate > 60; Glucose 113 mg/dL (70-99); HDL Direct 42 mg/dL (40-60); LDL Cholesterol Calculated 89 mg/dL (<130); Osmolality Calculated 294 mOsm/kg (285-295); Potassium 4.3 mmol/L (3.5-5.1); Sodium 141 mmol/L (136-145); Total Protein 6.6 g/dL (6.4-8.2); Triglycerides 130 mg/dL (0-150)
== END 2021-07-21 07:57 | disposition home or self-care (01) ==
LOC: CHSLAB 07:57
PROVIDERS: PCP Internal Medicine; Visit Provider Internal Medicine
DX: E78.2 Mixed hyperlipidemia (principal); I10 Essential (primary) hypertension; E11.9 Type 2 diabetes mellitus without complications
CPT/HCPCS: 36415; 80053; 80061; 81001; 82043; 82550; 83036

== ENCOUNTER 2021-07-31 13:40 | Outpatient (CLI) | payer MEDICARE, SELFPAY ==
--- NOTE | ~2021-07-31 | CT_ITS ---
EXAMINATION: CT diagnostic chest wo con EXAM DATE: 07/31/2021 14:03 INDICATION: pulmonary nodules follow-up. TECHNIQUE: Spiral CT of the chest without contrast. Axial, coronal and sagittal images of the chest were reviewed. Coronal maximum intensity pixel images of chest reviewed. The dose-length product ( DLP) for this examination was 696.34 mGy-cm. The exposure was tailored according to patient size (au to mA exposure control), and iterative reconstruction (ASIR) was used as additional dose reduction te chnique. Comparison is made to prior examination from 07/25/2020. FINDINGS: There are scattered calcified and noncalcified bilateral pleural plaques consistent with p rior asbestos exposure. Interval resolution of 2 previously seen right lower lobe 3 mm nodules. 3 mm pleural-based nodule along left major fissure unchanged. No suspicious pulmonary nodules. Mild emphys talat and hyperinflation. There are no pleural or pericardial effusions. Tracheobronchial tree is pa tent. There is no mediastinal, hilar or axillary lymphadenopathy. There is no pneumothorax. Hea rt normal in size. There is mild coronary arterial calcification, arterial sclerosis. Upper abdome n is unremarkable. There is mild thoracic spondylosis without osteoblastic or osteolytic lesions id entified. IMPRESSION: 1. Bilateral pleural plaques consistent with prior asbestos exposure. 2. Small post infectious residua. No suspicious nodules. 3. Mild emphysema and hyperinflation. Reviewed, dictated and finalized at location B. ICATIONS SUPPORT ANALYST
== END 2021-07-31 13:41 | disposition home or self-care (01) ==
LOC: CHSIMG 13:42
PROVIDERS: PCP Internal Medicine; Visit Provider Internal Medicine
DX: R91.1 Solitary pulmonary nodule (principal)
CPT/HCPCS: 71250

== ENCOUNTER 2021-09-30 10:44 | Outpatient (CLI) | payer MEDICARE, SELFPAY ==
--- NOTE | ~2021-09-30 | CT_ITS ---
EXAMINATION: CT abdomen pelvis wo/w con EXAM DATE: 09/30/2021 11:50 INDICATION: Hematuria,Frequent Uti,H/O Enlarged Prostate X3mo-W/ Folly. TECHNIQUE: Spiral CT of the abdomen and pelvis was performed without contrast. The patient was then i njected with small bolus intravenous Omnipaque 350, followed by delay of approximately 10 minutes to allow collecting system to opacify. A post contrast scan abdomen and pelvis was performed during inje ction of remaining contrast. A total of 130 cc intravenous contrast was administered. The dose-lengt h product (DLP) for this examination was 2684.55 mGy-cm. The exposure was tailored according to braulio ent size (auto mA exposure control), and iterative reconstruction (ASIR) was used as additional dose reduction technique. Comparison is made to prior examination from 03/28/2020. FINDINGS: Prostate is severely enlarged. No Avitia catheter identified. There is large amount of heter ogeneously hyperdense material layering in the bladder consistent with acute hemorrhage/blood clot. T his is limiting sensitivity for detecting any underlying bladder wall mass. There is no hydronephrosi s. The liver, spleen, adrenal glands and pancreas are unremarkable. There are gallstones within an othe rwise unremarkable gallbladder. No evidence of obstructive biliary disease. There is no retroperito nas or pelvic lymphadenopathy. Bilateral inguinal hernia repairs. Small umbilical fat-containing h ernia. There is moderate aortoiliac arterial sclerosis. The appendix is normal. There is moderate sigmoid predominant colonic diverticulosis. There is no ad jacent inflammatory change to suggest diverticulitis. The stomach and small bowel are unremarkable. There is expected amount of colonic stool. No free intraperitoneal gas. The heart is normal in si ze. There are no pericardial or pleural effusions. The lung bases are unremarkable. Small calcified left pleural plaque. There are no osteoblastic or osteolytic lesions identified. IMPRESSION: 1. Large amount of bladder hemorrhage/blood clot. 2. Severe prostatomegaly. 3. Moderate colonic diverticulosis. 4. Cholelithiasis. Reviewed, dictated and finalized at location G.
[2021-09-30 10:58] LABS: Basophils Absolute Auto 0.03 K/mm3 (0.00-0.10); Basophils Percent Auto 0.4 % (0.0-1.0); Eosinophils Absolute Auto 0.17 K/mm3 (0.02-0.50); Eosinophils Percent Auto 2.4 % (1.0-6.0); Hematocrit 45.2 % (37.0-46.0); Hemoglobin 14.7 g/dL (12.4-15.3); Immature Granulocyte Absolute 0.02 K/mm3 (0.00-0.00); Immature Granulocyte Percent A 0.3 % (0.0-0.0); Lymphocytes Absolute Auto 1.58 K/mm3 (1.10-4.50); Lymphocytes Percent Auto 22.5 % (18.0-42.0); Mean Corpuscular HGB Conc 32.5 g/dL (32.0-36.0); Mean Corpuscular Hemoglobin 30.2 pg (27.0-31.0); Mean Corpuscular Volume 92.8 fL (78.0-102.0); Monocytes Absolute Auto 0.56 K/mm3 (0.10-0.90); Neutrophils Absolute Auto 4.7 K/mm3 (1.7-7.2); Neutrophils Percent Auto 66.4 % (50.0-70.0); Platelet Count Result 182 K/mm3 (150-420); Red Blood Count 4.87 M/mm3 (4.70-6.10); Red Cell Distribution Width 12.3 % (11.6-14.4)
[2021-09-30 11:16] LABS: Estimated Glomerular Filt Rate > 60
[2021-09-30 11:29] LABS: Anion Gap 6 mmol/L (8-16); Blood Urea Nitrogen 10 mg/dL (7-18); Carbon Dioxide 29 mmol/L (21-32); Chloride 102 mmol/L (98-108); Glucose 135 mg/dL (70-99); Osmolality Calculated 285 mOsm/kg (285-295); Potassium 4.1 mmol/L (3.5-5.1); Prostate Specific Antigen 5.5 ng/mL (< OR = 4.0); Sodium 137 mmol/L (136-145)
== END 2021-09-30 10:45 | disposition home or self-care (01) ==
PROVIDERS: PCP Internal Medicine; Visit Provider Internal Medicine
DX: R31.9 Hematuria, unspecified (principal)
CPT/HCPCS: 36415; 74178; 80048; 84153; 85025; Q9967

== ENCOUNTER 2021-10-13 12:51 | Outpatient (CLI) | payer MEDICARE, SELFPAY ==
--- NOTE | ~2021-10-13 | CT_ITS ---
EXAMINATION: CT abdomen pelvis wo con EXAM DATE: 10/13/2021 13:10 INDICATION: Benign prostatic hyperplasia with urinary urge. TECHNIQUE: Spiral CT of the abdomen and pelvis was performed without contrast. Axial, coronal and s agittal images of the abdomen and pelvis were reviewed. The dose-length product (DLP) for this exami [facility] was 1425.86 mGy-cm. The exposure was tailored according to patient size (auto mA exposure con trol), and iterative reconstruction (ASIR) was used as additional dose reduction technique. Compariso n is made to prior examination from 09/30/2021. FINDINGS: The liver, spleen, adrenal glands and pancreas are unremarkable. There is cholelithiasis w ithin an otherwise unremarkable gallbladder. No evidence of obstructive biliary disease. There is n o nephrolithiasis or hydronephrosis. Prostate measures 6.8 cm in AP dimension, severely enlarged, b ulges into the bladder base. The bladder is unremarkable, previously seen bladder hemorrhage has res olved. There is no retroperitoneal or pelvic lymphadenopathy. Small umbilical fat-containing herni a. Bilateral inguinal surgical clips, probably hernia repair. The appendix is normal. The stomach and small bowel are unremarkable. There is moderate sigmoid colo nella diverticulosis. There is no adjacent inflammatory change to suggest diverticulitis. There is ex pected amount of colonic stool. No free intraperitoneal gas. The heart is normal in size. There are no pericardial or pleural effusions. Scattered basilar calcified pleural plaques, could indicate prior asbestos exposure. There are no osteoblastic or osteolytic lesions identified. IMPRESSION: 1. Resolution of previously seen bladder hemorrhage. 2. Severe prostatomegaly. 3. Moderate sigmoid predominant diverticulosis. 4. Cholelithiasis. 5. Pleural plaques. Reviewed, dictated and finalized at location A.
== END 2021-10-13 12:52 | disposition home or self-care (01) ==
LOC: CHSIMG 12:52
PROVIDERS: PCP Internal Medicine; Visit Provider Urology
DX: N40.1 Benign prostatic hyperplasia with lower urinary tract symptoms (principal)
CPT/HCPCS: 74176

== ENCOUNTER 2022-01-02 08:10 | Outpatient (CLI) | payer MEDICARE, SELFPAY ==
[2022-01-02 08:26] LABS: Add Urine Microscopic? YES; Appearance Urine Clear (Clear); Bilirubin Urine Negative (Negative); Blood Urine Negative (Negative); Color Urine Yellow (Yellow); Glucose Urine UA Negative (Negative); Ketones Urine Negative (Negative); Leukocyte Esterase Ur Negative (Negative); Nitrate Urine Negative (Negative); Protein Urine Trace (Negative); Specific Grav Ur >= 1.030 (1.010-1.020); Urobilinogen Urine 0.2 mg/dL (0.2-1.0); pH Urine 5.5 (5.0-8.0)
[2022-01-02 08:51] LABS: Bacteria Urine None seen /hpf; Mucus Urine Few /lpf; RBC Urine 0-2 /hpf (0-2); Squamous Epithelial Cell Urine Rare /hpf (Few); WBC Urine 0-3 /hpf (0-3)
[2022-01-02 08:52] LABS: Hemoglobin A1C 6.7 % (<5.7)
[2022-01-02 09:14] LABS: Alanine Aminotransferase 28 U/L (16-63); Albumin Level 3.7 g/dL (3.4-5.0); Alkaline Phosphatase 116 U/L (46-116); Anion Gap 9 mmol/L (8-16); Aspartate Amino Transferase 15 U/L (15-37); Bilirubin,Total 0.3 mg/dL (0.00-1.00); Blood Urea Nitrogen 18 mg/dL (7-18); Calcium 8.3 mg/dL (8.5-10.1); Carbon Dioxide 25 mmol/L (21-32); Chloride 109 mmol/L (98-108); Cholesterol 158 mg/dL (0-200); Creatine Kinase 96 U/L (39-308); Estimated Glomerular Filt Rate > 60; Glucose 140 mg/dL (70-99); HDL Direct 41 mg/dL (40-60); LDL Cholesterol Calculated 92 mg/dL (<130); Osmolality Calculated 299 mOsm/kg (285-295); Potassium 4.3 mmol/L (3.5-5.1); Prostate Specific Antigen 2.5 ng/mL (< OR = 4.0); Sodium 143 mmol/L (136-145); Total Protein 6.6 g/dL (6.4-8.2); Triglycerides 123 mg/dL (0-150)
== END 2022-01-02 08:11 | disposition home or self-care (01) ==
LOC: CHSLAB 08:11
PROVIDERS: PCP Internal Medicine; Visit Provider Internal Medicine
DX: E78.2 Mixed hyperlipidemia (principal); E11.9 Type 2 diabetes mellitus without complications; I10 Essential (primary) hypertension; Z12.5 Encounter for screening for malignant neoplasm of prostate
CPT/HCPCS: 36415; 80053; 80061; 81001; 82550; 83036; 84153; G0103

== ENCOUNTER 2022-04-07 11:15 | Outpatient (CLI) | payer MEDICARE, SELFPAY ==
[2022-04-07 11:28] LABS: Basophils Absolute Auto 0.02 K/mm3 (0.00-0.10); Basophils Percent Auto 0.2 % (0.0-1.0); Eosinophils Absolute Auto 0.19 K/mm3 (0.02-0.50); Eosinophils Percent Auto 1.8 % (1.0-6.0); Hematocrit 43.7 % (37.0-46.0); Hemoglobin 14.3 g/dL (12.4-15.3); Immature Granulocyte Absolute 0.04 K/mm3 (0.00-0.00); Immature Granulocyte Percent A 0.4 % (0.0-0.0); Lymphocytes Percent Auto 14.8 % (18.0-42.0); Mean Corpuscular HGB Conc 32.7 g/dL (32.0-36.0); Mean Corpuscular Hemoglobin 29.7 pg (27.0-31.0); Mean Corpuscular Volume 90.7 fL (78.0-102.0); Mean Platelet Volume 11.1 fl (8.7-11.0); Monocytes Absolute Auto 0.83 K/mm3 (0.10-0.90); Monocytes Percent Auto 7.7 % (2.0-11.0); Neutrophils Absolute Auto 8.2 K/mm3 (1.7-7.2); Neutrophils Percent Auto 75.1 % (50.0-70.0); Platelet Count Result 156 K/mm3 (150-420); Red Blood Count 4.82 M/mm3 (4.70-6.10); Red Cell Distribution Width 13.4 % (11.6-14.4); White Blood Count 10.8 K/mm3 (4.8-10.8)
[2022-04-07 11:54] LABS: Alanine Aminotransferase 27 U/L (16-63); Albumin Level 3.6 g/dL (3.4-5.0); Alkaline Phosphatase 96 U/L (46-116); Anion Gap 7 mmol/L (8-16); Aspartate Amino Transferase 12 U/L (15-37); Bilirubin,Total 0.5 mg/dL (0.00-1.00); Blood Urea Nitrogen 9 mg/dL (7-18); Calcium 8.6 mg/dL (8.5-10.1); Carbon Dioxide 27 mmol/L (21-32); Chloride 107 mmol/L (98-108); Estimated Glomerular Filt Rate > 60; Glucose 119 mg/dL (70-99); Osmolality Calculated 291 mOsm/kg (285-295); Potassium 4.2 mmol/L (3.5-5.1); Prostate Specific Antigen 2.4 ng/mL (< OR = 4.0); Sodium 141 mmol/L (136-145); Total Protein 6.8 g/dL (6.4-8.2)
== END 2022-04-07 11:16 | disposition home or self-care (01) ==
LOC: CHSLAB 11:18
PROVIDERS: PCP Internal Medicine; Visit Provider Nurse Practitioner Family
DX: N41.9 Inflammatory disease of prostate, unspecified (principal); R10.9 Unspecified abdominal pain; R31.9 Hematuria, unspecified
CPT/HCPCS: 36415; 80053; 84153; 85025

== ENCOUNTER 2022-07-07 07:51 | Outpatient (CLI) | payer MEDICARE, SELFPAY ==
[2022-07-07 08:36] LABS: Hemoglobin A1C 6.6 % (<5.7)
[2022-07-07 09:01] LABS: Alanine Aminotransferase 29 U/L (16-63); Albumin Level 3.7 g/dL (3.4-5.0); Alkaline Phosphatase 91 U/L (46-116); Anion Gap 8 mmol/L (8-16); Aspartate Amino Transferase 14 U/L (15-37); Bilirubin,Total 0.5 mg/dL (0.00-1.00); Blood Urea Nitrogen 14 mg/dL (7-18); Calcium 8.2 mg/dL (8.5-10.1); Carbon Dioxide 28 mmol/L (21-32); Chloride 107 mmol/L (98-108); Cholesterol 158 mg/dL (0-200); Creatine Kinase 66 U/L (39-308); Estimated Glomerular Filt Rate > 60; Glucose 128 mg/dL (70-99); HDL Direct 45 mg/dL (40-60); LDL Cholesterol Calculated 85 mg/dL (<130); Osmolality Calculated 298 mOsm/kg (285-295); Potassium 4.4 mmol/L (3.5-5.1); Sodium 143 mmol/L (136-145); Total Protein 6.6 g/dL (6.4-8.2); Triglycerides 140 mg/dL (0-150)
[2022-07-07 09:33] LABS: Add Urine Microscopic? NO; Appearance Urine Clear (Clear); Bilirubin Urine Negative (Negative); Blood Urine Negative (Negative); Color Urine Light Yellow (Yellow); Glucose Urine UA Negative (Negative); Ketones Urine Negative (Negative); Leukocyte Esterase Ur Negative (Negative); Nitrate Urine Negative (Negative); Protein Urine Negative (Negative); Specific Grav Ur 1.025 (1.010-1.020); Urobilinogen Urine 0.2 mg/dL (0.2-1.0)
[2022-07-07 09:42] LABS: Creatinine Urine 103.01 mg/dL (40-278); Microalbumin Urine Random 56.7 mg/L
== END 2022-07-07 07:52 | disposition home or self-care (01) ==
LOC: CHSLAB 07:53
PROVIDERS: PCP Internal Medicine; Visit Provider Internal Medicine
DX: E11.9 Type 2 diabetes mellitus without complications (principal); I10 Essential (primary) hypertension; I25.10 Atherosclerotic heart disease of native coronary artery without angina pectoris; E78.2 Mixed hyperlipidemia
CPT/HCPCS: 36415; 80053; 80061; 81003; 82043; 82550; 83036

== ENCOUNTER 2022-07-28 11:16 | Outpatient (CLI) | payer MEDICARE, SELFPAY ==
--- NOTE | ~2022-07-28 | XR_ITS ---
XR knee LT min 4V DATE: 07/28/2022 11:52 INDICATION: Bilateral chronic knee pain. No known injury. TECHNIQUE: [place], lateral and weightbearing AP and PA views COMPARISON: None FINDINGS: There is severe loss of medial compartment joint space. There is periarticular spurring at all 3 compartments, most prominent at the patellofemoral compartment. No fracture or dislocation or joint effusion. No chondrocalcinosis is evident. No periosteal reaction or bone destruction. 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 MATIC PACKER OPERATOR IMPRESSION: Tricompartment osteoarthritis, most severe at the medial compartmen t
--- NOTE | ~2022-07-28 | XR_ITS ---
XR knee RT min 4V DATE: 07/28/2022 11:52 INDICATION: Chronic bilateral knee pain. No known injury. TECHNIQUE: [place], lateral and weightbearing AP and PA views COMPARISON: None FINDINGS: There is tricompartment osteoarthritis, most severe at the medial compartment where there i s near-complete obliteration of medial compartment joint space. There is periarticular spurring at al l 3 compartments, particularly severe at the patellofemoral joint. Chondrocalcinosis. No recent fracture or dislocation, periosteal reaction or bone destruction. IMPRESSION: Tricompartment osteoarthritis, particular severe at medial and patellofemoral compartment s Chondrocalcinosis Reviewed, dictated and finalized at location L. BLOCK MAKER IMPRESSION: Tricompartment osteoarthritis, particular severe at medial and kruse llofemoral compartments Chondrocalcinosis
== END 2022-07-28 11:17 | disposition home or self-care (01) ==
LOC: CHSIMG 11:18
PROVIDERS: PCP Internal Medicine; Visit Provider Internal Medicine
DX: M25.562 Pain in left knee (principal); M25.561 Pain in right knee; M17.0 Bilateral primary osteoarthritis of knee; M11.261 Other chondrocalcinosis, right knee
CPT/HCPCS: 73564

== ENCOUNTER 2022-08-11 15:02 | Outpatient (CLI) | payer MEDICARE, SELFPAY ==
--- NOTE | ~2022-08-11 | CT_ITS ---
EXAMINATION: CT lung screening DATE: 08/11/2022 15:22 INDICATION: Personal history of nicotine dependence, prior smoker with 35 pack year history TECHNIQUE: Computed tomography (CT) of the chest was performed without intravenous contrast. The dose -length product (DLP) was 355.09 mGy-cm. Automated exposure control and iterative reconstruction tech [employer] were employed. COMPARISON: 07/31/2021 FINDINGS: Calcified pleural plaques are again noted which can be seen in the setting of prior asbesto s exposure. There are stable triangular nodules in association with the major fissure on the left. No pleural effusion or pneumothorax. The lungs are free of focal airspace opacities. No pathologically enlarged thoracic lymph nodes are identified. The heart size is normal. There is calcified coronary a rtery atherosclerosis. There is mild thoracic spondylosis. Cholelithiasis is noted. IMPRESSION: 1. Lung-RADS category 2: Benign appearance or behavior. Continue annual screening with noncontrast lo w-dose chest CT in 12 months. Reviewed, dictated and finalized at location B. ING STUDENT IMPRESSION: 1. Lung-RADS category 2: Benign appearance or behavior. Continue annual screeni ng with noncontrast low-dose chest CT in 12 months.
== END 2022-08-11 15:03 | disposition home or self-care (01) ==
LOC: CHSIMG 15:04
PROVIDERS: PCP Internal Medicine; Visit Provider Internal Medicine
DX: Z12.2 Encounter for screening for malignant neoplasm of respiratory organs (principal); Z87.891 Personal history of nicotine dependence
CPT/HCPCS: 71271

== ENCOUNTER 2023-01-06 08:15 | Outpatient (CLI) | payer MEDICARE, SELFPAY ==
[2023-01-06 08:36] LABS: Appearance Urine Clear (Clear); Bilirubin Urine Negative (Negative); Blood Urine Negative (Negative); Color Urine Light Yellow (Yellow); Glucose Urine UA Negative (Negative); Ketones Urine Negative (Negative); Leukocyte Esterase Ur Negative (Negative); Nitrate Urine Negative (Negative); Protein Urine Negative (Negative); Specific Grav Ur 1.025 (1.010-1.020); Urobilinogen Urine 0.2 mg/dL (0.2-1.0)
[2023-01-06 08:38] LABS: Add Urine Microscopic? NO
[2023-01-06 08:46] LABS: Creatinine Urine 125.42 mg/dL (40-278); MALB Creatinine Ratio 38.9 mg/g (0-30); Microalbumin Urine Random 48.9 mg/L
[2023-01-06 09:53] LABS: Alanine Aminotransferase 26 U/L (16-63); Albumin Level 3.6 g/dL (3.4-5.0); Alkaline Phosphatase 88 U/L (46-116); Anion Gap 10 mmol/L (8-16); Aspartate Amino Transferase 16 U/L (15-37); Bilirubin,Total 0.5 mg/dL (0.00-1.00); Blood Urea Nitrogen 15 mg/dL (7-18); Calcium 8.5 mg/dL (8.5-10.1); Carbon Dioxide 26 mmol/L (21-32); Chloride 107 mmol/L (98-108); Cholesterol 152 mg/dL (0-200); Creatine Kinase 67 U/L (39-308); Estimated Glomerular Filt Rate > 60; Glucose 115 mg/dL (70-99); HDL Direct 43 mg/dL (40-60); LDL Cholesterol Calculated 83 mg/dL (<130); Osmolality Calculated 297 mOsm/kg (285-295); Potassium 4.2 mmol/L (3.5-5.1); Sodium 143 mmol/L (136-145); Total Protein 6.5 g/dL (6.4-8.2); Triglycerides 129 mg/dL (0-150)
== END 2023-01-06 08:16 | disposition home or self-care (01) ==
LOC: CHSLAB 08:18
PROVIDERS: PCP Internal Medicine; Visit Provider Internal Medicine
DX: I10 Essential (primary) hypertension (principal); E78.2 Mixed hyperlipidemia; E11.9 Type 2 diabetes mellitus without complications
CPT/HCPCS: 36415; 80053; 80061; 81003; 82043; 82550; 83036

== ENCOUNTER 2023-11-26 12:59 | Outpatient (CLI) | payer MEDICARE, SELFPAY ==
--- NOTE | ~2023-11-26 | CT_ITS ---
EXAMINATION:CT diagnostic chest wo con DATE: 11/26/2023 13:25 INDICATION: Chronic obstructive pulmonary disease. TECHNIQUE: Computed tomography (CT) of the chest was performed without intravenous contrast. Automate d exposure control and iterative reconstruction technique were employed. The dose-length product (DLP ) was 647.52 mGy-cm. COMPARISON: Chest CT 08/11/2022 FINDINGS: There are calcified pleural plaques bilaterally, which may be seen with asbestos exposure. There are few nodules in the lungs measuring up to 3 mm. There is minimal atelectasis bilaterally. No pleural effusion. The heart size is normal. There are coronary artery calcifications. No pericardial effusion. There are gallstones in the gallbladder, which is normal in size. There is mild thoracic s pondylosis. IMPRESSION: 1. Lung-RADS category 2: Benign appearance or behavior. Reviewed, dictated and finalized at location E.
--- NOTE | ~2023-11-26 | XR_ITS ---
EXAMINATION: XR hand RT min 3V DATE: 11/26/2023 13:26 INDICATION: Right hand injury and pain. TECHNIQUE: 3 views of right hand were obtained. COMPARISON: None. FINDINGS: Bone alignment is normal. No fracture. There is mild osteoarthritis of distal radioulnar tadeo int, triscaphe joint, first carpometacarpal joint, and many of the metacarpophalangeal joints and int erphalangeal joints. There is severe osteoarthritis of first and third metacarpophalangeal joints and second and third distal interphalangeal joints. There is moderate osteoarthritis of fourth and fifth distal interphalangeal joints. There are dystrophic calcifications at the first and third metacarpop halangeal joints and at the triangular fibrocartilage. IMPRESSION: 1. Polyarticular osteoarthritis. Reviewed, dictated and finalized at location E.
== END 2023-11-26 13:00 | disposition home or self-care (01) ==
LOC: CHSIMG 13:01
PROVIDERS: PCP Internal Medicine; Visit Provider Internal Medicine
DX: J44.9 Chronic obstructive pulmonary disease, unspecified (principal); M79.641 Pain in right hand; M19.041 Primary osteoarthritis, right hand
CPT/HCPCS: 71250; 73130

== ENCOUNTER 2024-04-07 11:39 | Outpatient (CLI) | payer MEDICARE, SELFPAY ==
[2024-04-07 11:56] LABS: Basophils Absolute Auto 0.03 K/mm3 (0.00-0.10); Basophils Percent Auto 0.3 % (0.0-1.0); Eosinophils Absolute Auto 0.33 K/mm3 (0.02-0.50); Eosinophils Percent Auto 3.8 % (1.0-6.0); Hematocrit 45.4 % (37.0-46.0); Hemoglobin 15.1 g/dL (12.4-15.3); Immature Granulocyte Absolute 0.03 K/mm3 (0.00-0.00); Immature Granulocyte Percent A 0.3 % (0.0-0.0); Lymphocytes Absolute Auto 1.69 K/mm3 (1.10-4.50); Lymphocytes Percent Auto 19.5 % (18.0-42.0); Mean Corpuscular HGB Conc 33.3 g/dL (32-36); Mean Corpuscular Hemoglobin 30.3 pg (27.0-31.0); Mean Platelet Volume 11.3 fl (8.7-11.0); Monocytes Absolute Auto 0.74 K/mm3 (0.10-0.90); Monocytes Percent Auto 8.5 % (2.0-11.0); Neutrophils Absolute Auto 5.86 K/mm3 (1.70-7.20); Neutrophils Percent Auto 67.6 % (50.0-70.0); Platelet Count Result 149 K/mm3 (150-420); Red Blood Count 4.99 M/mm3 (4.70-6.10); Red Cell Distribution Width 12.6 % (11.6-14.4); White Blood Count 8.7 K/mm3 (4.8-10.8)
== END 2024-04-07 11:40 | disposition home or self-care (01) ==
LOC: CHSLAB 11:40
PROVIDERS: PCP Internal Medicine; Visit Provider Internal Medicine
DX: D69.6 Thrombocytopenia, unspecified (principal)
CPT/HCPCS: 36415; 85025

== ENCOUNTER 2024-08-04 08:30 | Outpatient (CLI) | payer MEDICARE, SELFPAY ==
[2024-08-04 08:43] LABS: Hematocrit 47.3 % (37.0-46.0); Mean Corpuscular HGB Conc 31.7 g/dL (32-36); Mean Corpuscular Hemoglobin 28.8 pg (27.0-31.0); Mean Corpuscular Volume 90.8 fL (78.0-102.0); Mean Platelet Volume 11.5 fl (8.7-11.0); Platelet Count Result 141 K/mm3 (150-420); Red Blood Count 5.21 M/mm3 (4.70-6.10); Red Cell Distribution Width 12.4 % (11.6-14.4); White Blood Count 6.7 K/mm3 (4.8-10.8)
[2024-08-04 08:49] LABS: Add Urine Microscopic? NO; Appearance Urine Clear (Clear); Bilirubin Urine Negative (Negative); Blood Urine Negative (Negative); Color Urine Light Yellow (Yellow); Glucose Urine UA Negative (Negative); Ketones Urine Negative (Negative); Leukocyte Esterase Ur Negative (Negative); Nitrate Urine Negative (Negative); Protein Urine Negative (Negative); Specific Grav Ur 1.015 (1.010-1.020); Urobilinogen Urine 0.2 mg/dL (0.2-1.0); pH Urine 6.5 (5.0-8.0)
[2024-08-04 09:52] LABS: Alanine Aminotransferase 29 U/L (16-63); Albumin Level 4.1 g/dL (3.4-5.0); Alkaline Phosphatase 92 U/L (46-116); Anion Gap 8 mmol/L (4-12); Aspartate Amino Transferase 16 U/L (15-37); Bilirubin,Total 0.8 mg/dL (0.00-1.00); Blood Urea Nitrogen 17 mg/dL (7-18); Carbon Dioxide 30 mmol/L (21-32); Chloride 103 mmol/L (98-108); Cholesterol 164 mg/dL (0-200); Creatine Kinase 81 U/L (39-308); Estimated Glomerular Filt Rate > 60; Glucose 124 mg/dL (70-99); HDL Direct 50 mg/dL (40-60); LDL Cholesterol Calculated 91 mg/dL (<130); Osmolality Calculated 294 mOsm/kg (285-295); Potassium 4.2 mmol/L (3.5-5.1); Prostate Specific Antigen 1.4 ng/mL (< OR = 4.0); Sodium 141 mmol/L (136-145); Total Protein 6.7 g/dL (6.4-8.2); Triglycerides 114 mg/dL (0-150)
== END 2024-08-04 08:31 | disposition home or self-care (01) ==
LOC: CHSLAB 08:33
PROVIDERS: PCP Internal Medicine; Visit Provider Internal Medicine
DX: D69.6 Thrombocytopenia, unspecified (principal); I10 Essential (primary) hypertension; E78.2 Mixed hyperlipidemia; E11.9 Type 2 diabetes mellitus without complications; I25.10 Atherosclerotic heart disease of native coronary artery without angina pectoris; Z12.5 Encounter for screening for malignant neoplasm of prostate
CPT/HCPCS: 36415; 80053; 80061; 81003; 82550; 83036; 84153; 85027; G0103

== ENCOUNTER 2024-09-20 14:46 | Outpatient (CLI) | payer MEDICARE, SELFPAY ==
--- NOTE | ~2024-09-20 | CT_ITS ---
CT abdomen pelvis w con Ordering provider: Mary Smith MD History: 73 years Male with . Acute diffuse abdominal pain . Comparison: October 13, 2021 Technique: CT abdomen and pelvis with IV and without oral contrast. Automated exposure control and it erative reconstruction technique were employed. The dose-length product was 1214.60 mGy-cm. 100 mL Om nipaque 350 was given IV. Findings: VISUALIZED LOWER CHEST: Normal calcification is seen bilaterally. UPPER ABDOMINAL ORGANS: Liver: Normal. Gallbladder: Cholelithiasis. Spleen: Normal. Stomach/duodenum: Sliding hiatus hernia. Pancreas: Normal. Adrenals: Normal. Kidneys: Left kidney lower pole simple cyst measuring 4.8 cm. PELVIC ORGANS: The bladder is slightly underfilled with thickened wall. Evaluation for cystitis advis ed. Enlarged prostate. BOWEL AND MESENTERY: Colon: Inflammatory changes are seen around the proximal sigmoid colon and adjacent small bowel with multiple small abscesses measuring 2.9 x 1.6 cm and possibly small bowel intramural abscess measuring 1.9 x 1.9 cm. Differential include diverticulitis and enteritis. Surrounding fat stranding is seen i n the area. Possibility of internal hernia should be considered. Normal appendix. Small Bowel: . No obstruction. Peritoneum/mesentery: No free air or free fluid. Mesenteric lymphadenopathy is seen with the largest measures 1.9 cm. RETROPERITONEUM: Mild atheromatous disease of the abdominal aorta. Atherosclerotic changes of the or igin of the superior mesenteric artery. No retroperitoneal lymphadenopathy. MUSCULOSKELETAL: Superficial soft tissues: The superficial soft tissues are normal. Bones: Age appropriate degenerative changes of the spine. IMPRESSION: 1. Bilateral pleural calcifications. 2. Cholelithiasis. 3. Inflammatory changes in the left lower quadrant adjacent to the sigmoid colon and involving the a djacent small bowel loops with multiple abscesses formation. Possibility of enteritis versus internal hernia and less likely diverticulitis are not excluded. 4. Mesenteric lymphadenopathy. 5. Left renal cyst unchanged. 6. Enlarged prostate. 7. Thickened wall of the urinary bladder which may indicate cystitis. Reviewed, dictated and finalized at location A. IMPRESSION: 1. Bilateral pleural calcifications. 2. Cholelithiasis. 3. Inflammatory changes in the left lower quadrant adjacent to the sigmoid col on and involving the adjacent small bowel loops with multiple abscesses formati on. Possibility of enteritis versus internal hernia and less likely diverticuli tis are not excluded. 4. Mesenteric lymphadenopathy. 5. Left renal cyst unchanged. 6. Enlarged prostate. 7. Thickened wall of the urinary bladder which may indicate cystitis.
[2024-09-20 15:07] LABS: Basophils Absolute Auto 0.03 K/mm3 (0.00-0.10); Basophils Percent Auto 0.2 % (0.0-1.0); Eosinophils Absolute Auto 0.17 K/mm3 (0.02-0.50); Eosinophils Percent Auto 1.3 % (1.0-6.0); Hematocrit 44.1 % (37.0-46.0); Hemoglobin 14.4 g/dL (12.4-15.3); Immature Granulocyte Absolute 0.06 K/mm3 (0.00-0.00); Immature Granulocyte Percent A 0.5 % (0.0-0.0); Lymphocytes Absolute Auto 1.72 K/mm3 (1.10-4.50); Lymphocytes Percent Auto 13.4 % (18.0-42.0); Mean Corpuscular HGB Conc 32.7 g/dL (32-36); Mean Corpuscular Hemoglobin 29.2 pg (27.0-31.0); Mean Corpuscular Volume 89.5 fL (78.0-102.0); Mean Platelet Volume 10.7 fl (8.7-11.0); Monocytes Percent Auto 6.2 % (2.0-11.0); Neutrophils Percent Auto 78.4 % (50.0-70.0); Platelet Count Result 243 K/mm3 (150-420); Red Blood Count 4.93 M/mm3 (4.70-6.10); Red Cell Distribution Width 11.9 % (11.6-14.4); White Blood Count 12.9 K/mm3 (4.8-10.8)
[2024-09-20 15:14] LABS: Add Urine Microscopic? NO; Appearance Urine Clear (Clear); Bilirubin Urine Negative (Negative); Blood Urine Negative (Negative); Color Urine Yellow (Yellow); Glucose Urine UA Negative (Negative); Ketones Urine Negative (Negative); Leukocyte Esterase Ur Negative (Negative); Nitrate Urine Negative (Negative); Protein Urine Negative (Negative); Urobilinogen Urine Negative mg/dL (0.2-1.0); pH Urine 6.5 (5.0-8.0)
[2024-09-20 15:22] LABS: Alanine Aminotransferase 33 U/L (16-63); Albumin Level 3.5 g/dL (3.4-5.0); Alkaline Phosphatase 103 U/L (46-116); Amylase 51 U/L (25-115); Anion Gap 8 mmol/L (4-12); Aspartate Amino Transferase 14 U/L (15-37); Bilirubin,Total 0.5 mg/dL (0.00-1.00); Blood Urea Nitrogen 15 mg/dL (7-18); Carbon Dioxide 27 mmol/L (21-32); Chloride 104 mmol/L (98-108); Estimated Glomerular Filt Rate > 60; Glucose 123 mg/dL (70-99); Lipase 29 U/L (16-77); Osmolality Calculated 289 mOsm/kg (285-295); Potassium 3.9 mmol/L (3.5-5.1); Sodium 139 mmol/L (136-145); Total Protein 7.5 g/dL (6.4-8.2)
[2024-09-20 15:34] LABS: Lactic Acid Reflex 0.8 mmol/L (0.4-2.0)
--- OUTSIDE RECORDS SUMMARY | 2024-09-20 16:38 | XMS_ITS | Patient Health Summary ---
Author Organization [facility] Address [address] [place] [address] Care Team Providers Care Meter Changes Records Clerk Name Role Phone Unavailable Primary Care Provider Unavailabl e Note from [facility],non-owned Affiliates and Associated Physician Practices is amultiple site organization consisting of ambulatory clinics and hospital sitesin [place], [place], [place] and [place]. This disclosure is being madepursuant to the Care Everywhere program and may not contain all information available regarding this patient. Last updated 18.[facility] Social History Tobacco Use Types Packs/Day Years Used Date Smoking Tobacco: Never Assessed Sex and Gender Information Value Date Recorded Sex Assigned at Not on file Gender Identity Not on file Sexual Orientation Not on file
--- OUTSIDE RECORDS SUMMARY | 2024-09-20 16:38 | XMS_ITS | Referral Summary ---
Author Organization [facility] Address [address] [place] [address] Care Team Providers Care Manager Laboratory Name Role Phone Unavailable Primary Care Provider Unavailabl e Source Comments [facility],non-owned Affiliates and Associated Physician Practices is amultiple site organization consisting of ambulatory clinics and hospital sitesin [place], [place], [place] and [place]. This disclosure is being madepursuant to the Care Everywhere program and may not contain all information available regarding this patient. Last updated 18.[facility] Social History Tobacco Use Types Packs/Day Years Used Date Smoking Tobacco: Never Assessed Sex and Gender Information Value Date Recorded Sex Assigned at Not on file Gender Identity Not on file Sexual Orientation Not on file Plan of Treatment Not on file
--- OUTSIDE RECORDS SUMMARY | 2024-09-20 16:38 | XMS_ITS | Clinical Summary ---
Author Organization [facility] Address [address] [place] [address] Care Team Providers Care Team Cdl Driver Name Role Phone Mary Smith MD Primary Care Provider [phone] Amairani Madrigal MD Unavailable Allergies No known active allergies Medications atenolol 25 MG tablet Take 1 tablet (25 mg total) by mouth daily. 06/07/2021 Active aspirin EC (ECOTRIN) 81 MG tablet Take 1 tablet (81 mg total) by mouth daily. Active finasteride (PROSCAR) 5 MG tablet Take 1 tablet (5 mg total) by mouth daily. 01/07/2022 Active pravastatin (PRAVACHOL) 40 MG tablet Take 1 tablet (40 mg total) by mouth daily. 01/01/2022 Active losartan (COZAAR) 100 MG tablet take 1 tablet by mouth every day 90 tablet 3 09/01/2023 Active meloxicam (MOBIC) 15 MG tablet Take 1 tablet (15 mg total) by mouth daily. Active Active Problems Problem Noted Date Diagnosed Date Excessive drinking of alcohol 04/12/2023 CAD (coronary artery disease) Overview (08/13/2021): history of CAD-medical therapy 10-12 years ago Hypertension Mixed hyperlipidemia Encounters Date Type Department Care Team Description 07/18/2024 Telephone [facility] eld [address] [place], [place] [id number] Amairani Madrigal MD Results 07/14/2024 8:45 AM HAND FRETTED INSTRUMENT MAKER - 07/14/2024 11:59 PM HAND FRETTED INSTRUMENT MAKER Hospital Encounter [facility] [address] [place] [address] Amairani Madrigal MD Discharge Disposition: Home or Self Care (Routine Discharge) 07/14/2024 Travel 06/28/2024 Telephone [facility] [address] [place] [phone] Amairani Madrigal MD Appointment Request from Last 3 Months Family History Medical History Relation Comments Heart Attack Brother Open Heart Brother Valve Disease Brother Relation Status Comments Brother Social History Tobacco Use Types Packs/Day Years Used Date Smoking Tobacco: Former Smokeless Tobacco: Never Tobacco Cessation:Counseling Given: Not Answered Alcohol Use Standard Drinks/Week Comments Not Currently 0 (1 standard drink = 0.6 oz pur e alcohol) occasionally Sex and Gender Information Value Date Recorded Sex Assigned at Not on file Legal Sex Male 11:03 PM CDT Gender Identity Not on file Sexual Orientation Not on file Last Filed Vital Signs Vital Sign Reading Time Taken Comments Blood Pressure 130/74 05/15/2024 2:37 PM HAND FRETTED INSTRUMENT MAKER Pulse 59 05/15/2024 2:37 PM HAND FRETTED INSTRUMENT MAKER Temperature 36.2 C (97.2 F) 03/15/2024 11:02 AM CDT Respiratory Rate 20 05/15/2024 2:37 PM HAND FRETTED INSTRUMENT MAKER Oxygen Saturation 99% 05/15/2024 2:37 PM HAND FRETTED INSTRUMENT MAKER Inhaled Oxygen Concentration - - Weight 114.3 kg (252 lb) 05/15/2024 2:37 PM HAND FRETTED INSTRUMENT MAKER Height 175.3 cm (5' 9 ) 05/15/2024 2:37 PM HAND FRETTED INSTRUMENT MAKER Body Mass Index 37.21 05/15/2024 2:37 PM HAND FRETTED INSTRUMENT MAKER Plan of Treatment Upcoming Encounters Date Type Department Care Team (Late st Contact Info) Description 05/25/2025 1:15 PM HAND FRETTED INSTRUMENT MAKER Office Visit [facility] [address] [place] [phone] Amairani Madrigal MD [address] [place] [address] Health Maintenance Due Date Last Done Comments ASCVD Statin 1950 Colorectal Cancer Screening Colonoscopy (10 Years) 1950 Pneumococcal Vaccine: 65+ Years (1 of 2 - PCV) 1954 Hepatitis C 1966 DTaP, Tdap and Td Vaccines (1 - Tdap) 09/24/1967 Zoster Vaccines (1 of 2) 1998 AAA SCREENING 2013 Annual Medicare Wellness Visit 2013 ASCVD LDL 01/02/2023 01/02/2022, 07/12, 12/31/2020, Additional history exists RSV Immunization or 60+ Years (1 - 1-dose 75+ series) 09/24/2023 COVID-19 Vaccine ( - season) 2024 Influenza Adult (#1) 2024 Meningococcal B Vaccine Aged Out No l onger eligible based on patient's age to complete this topic Meningococcal Vaccine Aged Out No arielle mae eligible based on patient's age to complete this topic RSV Immunizations Under 20 Months Aged Out No longer eligible based on patient's age to complete this topic Medical Devices Implanted Type Area Fighting Vehicle Systems Maintainer Device Identifier Shelf Expiration Date Model / Serial / Lot Tecnis 1-Piece Iol Implanted:Qty: 1 on 02/16/2024 by Denia Marcano MD at [facility] Right: Eye [employer] 12/01/2024 Tecnis 1-Piece Iol Implanted:Qty: 1 on 03/15/2024 by Denia Marcano MD at [facility] Left: Eye [employer] 04/22/2026 [id number] / [id number] / Procedures Procedure Name Priority Date/Time Associated Diagnosis Comments USE ECHOCARDIOGRAM Routine 07/14/2024 9: 27 AM HAND FRETTED INSTRUMENT MAKER Hypertensive heart disease without heart failure LIPID PANEL Routine 01/02/2022 from Last 3 Months or Most Recently Relevant to Health Maintenance Results * USE ECHOCARDIOGRAM (07/14/2024 9:27 AM HAND FRETTED INSTRUMENT MAKER) Anatomical Region Laterality Modality Cardiac Ultrasound 07/14/2024 8:56 AM HAND FRETTED INSTRUMENT MAKER Narrative 07/14/2024 2:48 PM HAND FRETTED INSTRUMENT MAKER Echocardiography Report Pat.Name: Blake Herron Pat.ID: [id number] .Date: 07/14/2024 Refer.MD: Lucie, [facility] Exam Time: 8:56:00 AM Study Type:LUCIE Height: 69 in Weight: 250 lb BSA: 2.27 m2 Age: 3 1950,73Y Sex: M Sonogrphr: Britney Pat. Stat.:Outpatient Reason for Study:Hypertensive heart disease without heart failure Procedures: Study performed at [place], [place] and interpreted by [facility]. 2D, M-mode, Doppler, Color Flow ++++++++++++++++++++++++++++++++++++ SUMMARY: ++++++++++++++++++++++++++++++++++++ The left ventricular size is normal. Estimated left ventricular ejection fraction is 60-65%. Left ventricular diastolic function is abnormal (grade 1 - impaired relaxation). The right ventricle size is normal. The right ventricular function is normal. No evidence of pericardial effusion. There is trace mitral regurgitation. There is trace tricuspid regurgitation. ++++++++++++++++++++++++++++++++++++ FINDINGS: ++++++++++++++++++++++++++++++++++++ LV: The left ventricular size is normal. The left ventricular systolic function is normal. Estimated left ventricular ejection fraction is 60-65%. Left ventricular diastolic function is abnormal (grade 1 - impaired relaxation). RV: The right ventricle size is normal. The right ventricular function is normal. LA: Left atrial size is normal. RA: The right atrial size is normal. OMID: No evidence of pericardial effusion. AO: Aorta is normal. SVn: Inferior vena cava is normal. AV: The aortic valve is trileaflet. There is no aortic stenosis. There is no evidence of aortic regurgitation. MV: The mitral valve is structurally normal. There is trace mitral regurgitation. PV: Pulmonic valve not well visualized. TV: The tricuspid valve appears structurally normal. There is trace tricuspid regurgitation. <Electronic Signature> 07/14/2024 02:48 PM Amairani Madrigal M.D. Procedure Note Amairani Madrigal MD - 07/14/2024 Echocardiography Report Pat.Name: Blake Herron Pat.ID: [id number] .Date: 07/14/2024 Refer.MD: Lucie, [facility] Exam Time: 8:56:00 AM Study Type:OUTREACH Height: 69 in Weight: 250 lb BSA: 2.27 m2 Age: 3 1950,73Y Sex: M Sonogrphr: Sf Pat. Stat.:Outpatient Reason for Study:Hypertensive heart disease without heart failure Procedures: Study performed at [place], [place] and interpreted by [facility]. 2D, M-mode, Doppler, Color Flow ++++++++++++++++++++++++++++++++++++ SUMMARY: ++++++++++++++++++++++++++++++++++++ The left ventricular size is normal. Estimated left ventricular ejection fraction is 60-65%. Left ventricular diastolic function is abnormal (grade 1 - impaired relaxation). The right ventricle size is normal. The right ventricular function is normal. No evidence of pericardial effusion. There is trace mitral regurgitation. There is trace tricuspid regurgitation. ++++++++++++++++++++++++++++++++++++ FINDINGS: ++++++++++++++++++++++++++++++++++++ LV: The left ventricular size is normal. The left ventricular systolic function is normal. Estimated left ventricular ejection fraction is 60-65%. Left ventricular diastolic function is abnormal (grade 1 - impaired relaxation). RV: The right ventricle size is normal. The right ventricular function is normal. LA: Left atrial size is normal. RA: The right atrial size is normal. OMID: No evidence of pericardial effusion. AO: Aorta is normal. SVn: Inferior vena cava is normal. AV: The aortic valve is trileaflet. There is no aortic stenosis. There is no evidence of aortic regurgitation. MV: The mitral valve is structurally normal. There is trace mitral regurgitation. PV: Pulmonic valve not well visualized. TV: The tricuspid valve appears structurally normal. There is trace tricuspid regurgitation. <Electronic Signature> 07/14/2024 02:48 PM Amairani Madrigal M.D. Amairani Madrigal MD ECHO Final Result * LIPID PANEL (01/02/2022) CHOLESTEROL 158 HDL 41 TRIGLYCERIDES 123 LDL (CALCULATED) 92 01/02/2022 Doc [facility] LABORATORY Final Result from Last 3 Months or Most Recently Relevant to Health Maintenance Insurance MEDICARE [facility] Care Teams Team Cdl Driver Relationship Specialty Start Date End Date Mary Smith MD [address] [place] [address] PCP - General INTERNAL MEDICINE 07/15/21 Amairani Madrigal MD [address] [place] [address] Tillman Supervisor [employer] CARDIOVASCULAR DISEASE 03/28/24
--- OUTSIDE RECORDS SUMMARY | 2024-09-20 16:38 | XMS_ITS | Encounter Summary ---
Author Organization [facility] Address Critical access hospital[address] [place] [address] Care Team Providers Care Pediatric Clinical Nurse Specialist Name Role Phone Mary Smith MD Primary Care Provider [phone] Alhaji Evans MD Unavailable Unavailabl e Bernie Thorpe APRN, FOOD SERVICE TECHNICIAN-C Unavailable Amairani Madrigal MD Unavailable Encounter Details Date Type Department Care Team (Late st Contact Info) Description 09/01/2021 Abstract [facility] [address] [place] [phone] Alhaji Evans MD Social History Tobacco Use Types Packs/Day Years Used Date Smoking Tobacco: Former Smokeless Tobacco: Never Alcohol Use Standard Drinks/Week Comments Yes 0 (1 standard drink = 0.6 oz pur e alcohol) occasionally Sex and Gender Information Value Date Recorded Sex Assigned at Not on file Legal Sex Male 11:03 PM CDT Gender Identity Not on file Sexual Orientation Not on file documented as of this encounter Plan of Treatment Upcoming Encounters Date Type Department Care Team (Late st Contact Info) Description 05/25/2025 1:15 PM COFFEE ROASTER HELPER Office Visit [facility] [place] [address] Amairani Madrigal MD [address] [place], [place] [address] documented as of this encounter Visit Diagnoses Not on filedocumented in this encounter Care Teams Pediatric Clinical Nurse Specialist Relationship Specialty Start Date End Date Mary Smith MD [address] [place] [phone] PCP - General INTERNAL MEDICINE 07/15/21 Alhaji Evans MD [address] [place] [address] [place] Operating Room Scheduler CARDIOVASCULAR DISEASE 07/15/21 11/10/23 Bernie Thorpe, WAREHOUSE MAN, FOOD SERVICE TECHNICIAN-C [address] [facility] [address] [place] [phone] NURSE PRACTITIONER 11/11/23 03/27/24 Amairani Madrigal MD [address] [place] [address] [place] Operating Room Scheduler CARDIOVASCULAR DISEASE 03/28/24 documented as of this encounter
--- OUTSIDE RECORDS SUMMARY | 2024-09-20 16:38 | XMS_ITS | Clinical Summary ---
Author Organization [facility] Address [address] [place] [address] Care Team Providers Care Customer Success Associate Name Role Phone Unavailable Primary Care Provider Unavailabl e Source Comments [facility],non-owned Affiliates and Associated Physician Practices is amultiple site organization consisting of ambulatory clinics and hospital sitesin [place], [place], [place] and [place]. This disclosure is being madepursuant to the Care Everywhere program and may not contain all information available regarding this patient. Last updated 18.[facility] [place] Social History Tobacco Use Types Packs/Day Years Used Date Smoking Tobacco: Never Assessed Sex and Gender Information Value Date Recorded Sex Assigned at Not on file Gender Identity Not on file Sexual Orientation Not on file Plan of Treatment Health Maintenance Due Date Last Done Comments COLOGUARD (AGES 45-75) - COL ON CA SCREENING 1950 COLON MONITORING 1950 COLONOSCOPY - COLON CA SCREENING 1948 CT COLONOGRAPHY - COLON CA SCREENING 1950 Colorectal Cancer Screening 1950 FIT - COLON CA SCREENING 1950 FLEX SIG - COLON CA SCREENING 1948 LIPID TESTING 1950 MEDICARE AWV 12 MONTHS 1950 HEPATITIS C SCREENING 09/19/1966 DTAP/TDAP/TD VACCINES (1 - Tdap) 09/24/1967 PNEUMOCOCCAL VACCINE 50+ (1 of 1 - PCV) 1998 ZOSTER VACCINE (1 of 2) 1998 Respiratory Syncytial Virus (RSV) Vaccine Pt: or over 60 yrs (1 - 1-dose 75+ series) 09/24/2023 COVID-19 VACCINE ( - 2023-2 5 season) 2024 INFLUENZA VACCINE (#1) 2024 DEPRESSION SCREENING 07/12/2024 HEPATITIS B VACCINE Aged Out No longe r eligible based on patient's age to complete this topic HIB VACCINE Aged Out No longer eligi ble based on patient's age to complete this topic HPV VACCINE Aged Out No longer eligi ble based on patient's age to complete this topic MENINGOCOCCAL (Group B) VACC INE SHARED DECISION-MAKING Aged Out No longer eligibl e based on patient's age to complete this topic MENINGOCOCCAL GROUPS A/C/Y/W VACCINE Aged Out No longer eligible b ased on patient's age to complete this topic
--- OUTSIDE RECORDS SUMMARY | 2024-09-20 16:38 | XMS_ITS | Encounter Summary ---
Author Organization [facility] Address [facility] [place] [address] Care Team Providers Care Software Reliability Engineer Name Role Phone Mary Smith MD Primary Care Provider [phone] Alhaji Evans MD Unavailable Unavailabl e Bernie Thorpe APRN, ELL TUTOR-C Unavailable Amairani Madrigal MD Unavailable Encounter Details Date Type Department Care Team (Late st Contact Info) Description 07/31/2021 Abstract [facility]-[address] [phone] Alhaji Evans MD Social History Tobacco Use [...] on file Sexual Orientation Not on file COVID-19 Exposure Response Date Recorded In the last month, have you been in contact with someone who was confirmed or suspected to have Coronavirus / COVID-19? Unable to assess 07/15/2021 8:24 AM SUPPLY ANALYST documented as of this encounter Plan of Treatment Upcoming Encounters Date Type Department Care Team (Late st Contact Info) Description 05/25/2025 1:15 PM SUPPLY ANALYST Office Visit [facility] [place] [phone] Amairani Madrigal MD [address] [place] [address] documented as of this encounter Procedures Procedure Name Priority Date/Time Associated Diagnosis Comments CMP (ABSTRACTED LAB) Routine 07/21/2021 HEMOGLOBIN, GLYCOSYLATED Routine 07/21/2021 LIPID PANEL Routine 07/21/2021 CK (CPK) Routine 07/21/2021 documented in this encounter Results * HEMOGLOBIN, GLYCOSYLATED (07/21/2021) HGB A1C 6.1 <5.7 % 07/21/2021 us Mary Smith MD LABORATORY Final Result * LIPID PANEL (07/21/2021) CHOLESTEROL 157 0 - 200 HDL 42 40 - 60 TRIGLYCERIDES 130 0 - 150 LDL (CALCULATED) 89 <130 07/21/2021 us Mary Smith MD LABORATORY Final Result * CK (CPK) (07/21/2021) CPK 111 39 - 308 07/21/2021 us Mary Smith MD LABORATORY Final Result * CMP (ABSTRACTED LAB) (07/21/2021) SODIUM S/P/B 141 136 - 145 POTASSIUM S/P/B 4.3 3.5 - 5.1 CHLORIDE S/P/B 104 98 - 108 CO2 29 21 - 32 BUN 16 7 - 18 CREATININE S/P/B 0.95 0.7 - 1.3 EGFR NON-AFR. AMER. >60 <=90 CALCIUM S/P/B 8.6 8.5 - 10.1 GLUCOSE 113 70 - 99 mg/dL TOTAL PROTEIN S/P/B 6.6 6.4 - 8.2 ALBUMIN S/P/B 3.6 3.4 - 5.0 AST 20 15 - 37 ALT 40 16 - 63 ALKALINE PHOSPHATASE S/P/B 100 46 - 116 BILIRUBIN TOTAL S/P/B 0.5 0.00 - 1.00 07/21/2021 Mary Smith MD LAB-OUTSIDE/ABSTRACTED Final Result documented in this encounter Visit Diagnoses Not on filedocumented in this encounter Care Teams Software Reliability Engineer Relationship Specialty Start Date End Date Mary Smith MD [address] [place] [address] PCP - General INTERNAL MEDICINE 07/15/21 Alhaij Evans MD [address] [place] [address] [place] Client Leader CARDIOVASCULAR DISEASE 07/15/21 11/10/23 Bernie Thorpe, LEAK OPERATOR PARAFFIN PLANT, ELL TUTOR-C [address] [facility] [address] [place] [address] NURSE PRACTITIONER 11/11/23 03/27/24 Amaiarni Madrigal MD [address] [place] [address] [place] Client Leader CARDIOVASCULAR DISEASE 03/28/24 documented as of this encounter
== END 2024-09-20 14:47 | disposition home or self-care (01) ==
PROVIDERS: PCP Internal Medicine; Visit Provider Internal Medicine
DX: R10.9 Unspecified abdominal pain (principal); J94.8 Other specified pleural conditions; K80.20 Calculus of gallbladder without cholecystitis without obstruction; R59.0 Localized enlarged lymph nodes; N28.1 Cyst of kidney, acquired; N40.0 Benign prostatic hyperplasia without lower urinary tract symptoms; R93.41 Abnormal radiologic findings on diagnostic imaging of renal pelvis, ureter, or bladder
CPT/HCPCS: 36415; 74177; 80053; 81003; 82150; 83605; 83690; 85025; Q9967

== ENCOUNTER 2024-09-20 17:56 | Inpatient (IN) | payer MEDICARE, SELFPAY ==
--- OUTSIDE RECORDS SUMMARY | 2024-09-20 18:11 | XMS_ITS | Clinical Summary ---
Author Organization [facility] Address [address] [place] [address] Care Team Providers Care Wheelman Name Role Phone Mary Smith MD Primary Care Provider [phone] Amairani Madrigal MD Unavailable Allergies No known [...] Department Care Team Description 07/18/2024 Telephone [facility] eld [address] [place], [place] [address] Amairani Madrigal MD Results 07/14/2024 8:45 AM DECORATING MACHINE OPERATOR - 07/14/2024 11:59 PM DECORATING MACHINE OPERATOR Hospital Encounter [facility] [address] [place] [address] Amairani Madrigal MD Discharge Disposition: Home or Self Care (Routine Discharge) 07/14/2024 Travel 06/28/[address]24 [address] [facility] [address] [place] [phone] Amairani Madrigal MD Appointment Request from Last [...] Comments Blood Pressure 130/74 05/15/2024 2:37 PM DECORATING MACHINE OPERATOR Pulse 59 05/15/2024 2:37 PM DECORATING MACHINE OPERATOR Temperature 36.2 C (97.2 F) 03/15/2024 11:02 AM CDT Respiratory Rate 20 05/15/2024 2:37 PM DECORATING MACHINE OPERATOR Oxygen Saturation 99% 05/15/2024 2:37 PM DECORATING MACHINE OPERATOR Inhaled Oxygen Concentration - - Weight 114.3 kg (252 lb) 05/15/2024 2:37 PM DECORATING MACHINE OPERATOR Height 175.3 cm (5' 9 ) 05/15/2024 2:37 PM DECORATING MACHINE OPERATOR Body Mass Index 37.21 05/15/2024 2:37 PM DECORATING MACHINE OPERATOR Plan of Treatment Upcoming Encounters Date Type Department Care Team (Late st Contact Info) Description 05/25/2025 1:15 PM DECORATING MACHINE OPERATOR Office Visit [facility] [address] [place] [phone] Amairani Madrigal MD [address] [place] [address] Health Maintenance Due Date Last Done Comments [...] this topic Medical Devices Implanted Type Area Supervisor Fabrication Device Identifier Shelf Expiration Date Model / Serial / Lot Tecnis 1-Piece Iol Implanted:Qty: 1 on 02/16/2024 by Denia Marcano MD at [facility] Right: Eye [employer] 12/01/2024 Tecnis 1-Piece Iol Implanted:Qty: 1 on 03/15/2024 by Denia Marcano MD at [facility] Left: Eye [employer] 04/22/2026 [id number] / [id number] / Procedures Procedure Name Priority Date/Time Associated Diagnosis Comments USE ECHOCARDIOGRAM Routine 07/14/2024 9: 27 AM DECORATING MACHINE OPERATOR Hypertensive heart disease without heart failure LIPID PANEL Routine 01/02/2022 from Last 3 Months or Most Recently Relevant to Health Maintenance Results * USE ECHOCARDIOGRAM (07/14/2024 9:27 AM DECORATING MACHINE OPERATOR) Anatomical Region Laterality Modality Cardiac Ultrasound 07/14/2024 8:56 AM DECORATING MACHINE OPERATOR Narrative 07/14/2024 2:48 PM DECORATING MACHINE OPERATOR Echocardiography Report Pat.Name: Blake Herron Pat.ID: [id number] .Date: 07/14/2024 Refer.MD: Lucie, [facility] Exam Time: 8:56:00 AM Study Type:LUCIE Height: 69 in Weight: 250 lb BSA: 2.27 m2 Age: 3 1950,73Y Sex: M Sonogrphr: Britney Pat. Stat.:Outpatient Reason for Study:Hypertensive heart disease without heart failure Procedures: Study performed at [place], [place] and interpreted by [facility]. 2D, M-mode, Doppler, Color Flow [...] 07/14/2024 Echocardiography Report Pat.Name: Blake Herron Pat.ID: [id number] .Date: 07/14/2024 Refer.MD: Lucie, [facility] Exam Time: 8:56:00 AM Study Type:OUTREACH Height: 69 in Weight: 250 lb BSA: 2.27 m2 Age: 3 1950,73Y Sex: M Sonogrphr: Sf Pat. Stat.:Outpatient Reason for Study:Hypertensive heart disease without heart failure Procedures: Study performed at [place], [place] and interpreted by [facility]. 2D, M-mode, Doppler, Color Flow [...] regurgitation. <Electronic Signature> 07/14/2024 02:48 PM Amairani Madriagl M.D. Amairani Madrigal MD ECHO Final Result * LIPID PANEL (01/02/2022) CHOLESTEROL 158 HDL 41 TRIGLYCERIDES 123 LDL (CALCULATED) 92 01/02/2022 Doc [facility] Abstract LABORATORY Final Result from Last 3 Months or Most Recently Relevant to Health Maintenance Insurance MEDICARE [facility] Care Teams Wheelman Relationship Specialty Start Date End Date Mary Smith MD [address] [place] [address] PCP - General INTERNAL MEDICINE 07/15/21 Amairani Madrigal MD [address] [place] [address] [place] Rental Representative CARDIOVASCULAR DISEASE 03/28/24
--- OUTSIDE RECORDS SUMMARY | 2024-09-20 18:11 | XMS_ITS | Clinical Summary ---
Author Organization [facility] Address [address] [place] [address] Care Team Providers Care Lawn Care Specialist Name Role Phone Unavailable Primary Care Provider Unavailabl e Source Comments [facility],non-owned Affiliates and Associated Physician Practices is amultiple site organization consisting of ambulatory clinics and hospital sitesin [place], [place], [place] and [place]. This disclosure is being madepursuant to the Care Everywhere program and may not contain all information available regarding this patient. Last updated 18.[facility] [employer] Social History Tobacco Use Types Packs/Day Years [...]
--- OUTSIDE RECORDS SUMMARY | 2024-09-20 18:11 | XMS_ITS | Referral Summary ---
Author Organization [facility] Address [address] [place] [address] Care Team Providers Care Mid Level Business Analyst Name Role Phone Unavailable Primary Care Provider Unavailabl e Source Comments [facility],non-owned Affiliates and Associated Physician Practices is amultiple site organization consisting of ambulatory clinics and hospital sitesin [place], [place], [place] and [place]. This disclosure is being madepursuant to the Care Everywhere program and may not contain all information available regarding this patient. Last updated 18.[facility] Social History Tobacco Use Types Packs/Day Years Used Date Smoking Tobacco: Never Assessed Sex and Gender Information Value Date Recorded Sex Assigned at Not on file Gender Identity Not on file Sexual Orientation Not on file Plan of Treatment Not on file
--- OUTSIDE RECORDS SUMMARY | 2024-09-20 18:11 | XMS_ITS | Patient Health Summary ---
Author Organization [facility] Address [address] [place] [address] Care Team Providers Care Co Op Name Role Phone Unavailable Primary Care Provider Unavailabl e Note from [facility],non-owned Affiliates and Associated Physician Practices is amultiple site organization consisting of ambulatory clinics and hospital sitesin [place], [place], [place] and [place]. This disclosure is being madepursuant to the Care Everywhere program and may not contain all information available regarding this patient. Last updated 18.[facility] Social History Tobacco Use Types Packs/Day Years Used Date Smoking Tobacco: Never Assessed Sex and Gender Information Value Date Recorded Sex Assigned at Not on file Gender Identity Not on file Sexual Orientation Not on file
--- OUTSIDE RECORDS SUMMARY | 2024-09-20 18:11 | XMS_ITS | Encounter Summary ---
Author Organization [facility] Address [facility] [place] [address] Care Team Providers Care Explosion Welder Name Role Phone Mary Smith MD Primary Care Provider [phone] Alhaji Evans MD Unavailable Unavailabl e Bernie Thorpe APRN, BRASS ROLLER-C Unavailable Amairani Madrigal MD Unavailable Encounter Details Date Type Department Care Team (Late st Contact Info) Description 07/31/2021 Abstract [facility]-[address] [phone] Alhaji Evans MD Social History Tobacco Use [...] COVID-19? Unable to assess 07/15/2021 8:24 AM MEDICAL TECHNOLOGIST PRN documented as of this encounter Plan of Treatment Upcoming Encounters Date Type Department Care Team (Late st Contact Info) Description 05/25/2025 1:15 PM MEDICAL TECHNOLOGIST PRN Office Visit [facility]-[address] [place] [phone] Amairani Madrigal MD [address] [place] [address] documented as of this encounter Procedures Procedure [...] on filedocumented in this encounter Care Teams Explosion Welder Relationship Specialty Start Date End Date Mary Smith MD [address] [place] [address] PCP - General INTERNAL MEDICINE 07/15/21 Alhaji Evans MD [address] [place] [address] [place] Dressage Instructor CARDIOVASCULAR DISEASE 07/15/21 11/10/23 Bernie Thorpe, BAG MACHINE OPERATOR HELPER, BRASS ROLLER-C [address] [facility] [address] [place] [address] NURSE PRACTITIONER 11/11/23 03/27/24 Amairani Madrigal MD [address] [place] [address] [place] Dressage Instructor CARDIOVASCULAR DISEASE 03/28/24 documented as of this encounter
--- OUTSIDE RECORDS SUMMARY | 2024-09-20 18:11 | XMS_ITS | Encounter Summary ---
Author Organization [facility] Address [facility] [place] [address] Care Team Providers Care Welder Machine Operator Name Role Phone Mary Smith MD Primary Care Provider [phone] Alhaji Evans MD Unavailable Unavailabl e Bernie Thorpe APRN, NIB FINISHER-C Unavailable Amairani Madrigal MD Unavailable Encounter Details Date Type Department Care Team (Late st Contact Info) Description 09/01/2021 Abstract [facility] [address] [place] [phone] Alhaji Evans MD Social History Tobacco Use [...] st Contact Info) Description 05/25/2025 1:15 PM IC DESIGN MANAGER Office Visit [facility]-[address] [place] [address] Amairani Madrigal MD [address] [place], [place] [address] documented as of this encounter Visit Diagnoses Not on filedocumented in this encounter Care Teams Welder Machine Operator Relationship Specialty Start Date End Date Mary Smith MD [address] [place] [phone] PCP - General INTERNAL MEDICINE 07/15/21 Alhaji Evans MD [address] [place] [address] [place] Public Transit Specialist CARDIOVASCULAR DISEASE 07/15/21 11/10/23 Bernie Thorpe, ETL PROGRAMMER, NIB FINISHER-C [address] [facility] [address] [place] [phone] NURSE PRACTITIONER 11/11/23 03/27/24 Amairani Madrigal MD [address] [place] [address] [place] [employer] Specialist CARDIOVASCULAR DISEASE 03/28/24 documented as of this encounter
[2024-09-20 18:29] VITALS: BP 140/69; PULSE 67; RESP 20; TEMP 36.8; O2SAT 95
--- OUTSIDE RECORDS SUMMARY | 2024-09-20 21:07 | XMS_ITS | Encounter Summary ---
Author Organization [facility] Address [facility] [place] [address] Care Team Providers Care Mechanical Design Technician Name Role Phone Mary Smith MD Primary Care Provider [phone] Alhaji Evans MD Unavailable Unavailabl e Bernie Thorpe APRN, DISTRIBUTION COLLECTION OPERATOR-C Unavailable Amairani Madrigal MD Unavailable Encounter Details Date Type Department Care Team (Late st Contact Info) Description 07/31/2021 Abstract [facility]-[address] [phone] Alhaji Evans MD Social History Tobacco Use [...] COVID-19? Unable to assess 07/15/2021 8:24 AM FORENSIC MANAGER documented as of this encounter Plan of Treatment Upcoming Encounters Date Type Department Care Team (Late st Contact Info) Description 05/25/2025 1:15 PM FORENSIC MANAGER Office Visit [facility] [place] [phone] Amairani Madrigal MD [address] [place] [address] documented as of this encounter Procedures Procedure [...] on filedocumented in this encounter Care Teams Mechanical Design Technician Relationship Specialty Start Date End Date Mary Smith MD [address] [place] [address] PCP - General INTERNAL MEDICINE 07/15/21 Alhaji Evans MD [address] [place] [address] [place] Reinsurance Claim Analyst CARDIOVASCULAR DISEASE 07/15/21 11/10/23 Bernie Thorpe, EYEGLASS LENS CUTTER, DISTRIBUTION COLLECTION OPERATOR-C [address] [facility] [address] [place] [address] NURSE PRACTITIONER 11/11/23 03/27/24 mAairani Madrigal MD [address] [place] [address] [place] Reinsurance Claim Analyst CARDIOVASCULAR DISEASE 03/28/24 documented as of this encounter
--- OUTSIDE RECORDS SUMMARY | 2024-09-20 21:07 | XMS_ITS | Encounter Summary ---
Author Organization [facility] Address [facility] [place] [address] Care Team Providers Care Design Maker Name Role Phone Mary Smith MD Primary Care Provider [phone] Alhaji Evans MD Unavailable Unavailabl e Bernie Thorpe APRN, GRAIN HANDLER-C Unavailable Amairani Madrigal MD Unavailable Encounter Details Date Type Department Care Team (Late st Contact Info) Description 09/01/2021 Abstract [facility] [address] [place] [phone] Alhaji Evans MD Social History Tobacco Use [...] st Contact Info) Description 05/25/2025 1:15 PM BUNK HOUSE WORKER Office Visit [facility]-[address] [place] [address] Amairani Madrigal MD [address] [place], [place] [address] documented as of this encounter Visit Diagnoses Not on filedocumented in this encounter Care Teams Design Maker Relationship Specialty Start Date End Date Mary Smith MD [address] [place] [phone] PCP - General INTERNAL MEDICINE 07/15/21 Alhaji Evans MD [address] [place] [address] [place] Buyer Internship CARDIOVASCULAR DISEASE 07/15/21 11/10/23 Bernie Thorpe, CHAIR SPRING ASSEMBLER, GRAIN HANDLER-C [address] [facility] [address] [place] [phone] NURSE PRACTITIONER 11/11/23 03/27/24 Amairani Madrigal MD [address] [place] [address] [place] Buyer Internship CARDIOVASCULAR DISEASE 03/28/24 documented as of this encounter
--- OUTSIDE RECORDS SUMMARY | 2024-09-20 21:07 | XMS_ITS | Clinical Summary ---
Author Organization [facility] Address [address] [place] [address] Care Team Providers Care Hotbed Operator Name Role Phone Mary Smith MD Primary Care Provider [phone] Amairani Madrigal MD Unavailable Allergies No known [...] Department Care Team Description 07/18/2024 Telephone [facility] eld [address], [place] [address] Amairani Madrigal MD Results 07/14/2024 8:45 AM BUSINESS EDITOR - 07/14/2024 11:59 PM BUSINESS EDITOR Hospital Encounter [facility] [address] [place] [address] Amairani Madrigal MD Discharge Disposition: Home or Self Care (Routine Discharge) 07/14/2024 Travel 06/28/2024 Telephone [facility] [address] [place] [phone] Amairani Madrigal MD Appointment Request from Last [...] Comments Blood Pressure 130/74 05/15/2024 2:37 PM BUSINESS EDITOR Pulse 59 05/15/2024 2:37 PM BUSINESS EDITOR Temperature 36.2 C (97.2 F) 03/15/2024 11:02 AM CDT Respiratory Rate 20 05/15/2024 2:37 PM BUSINESS EDITOR Oxygen Saturation 99% 05/15/2024 2:37 PM BUSINESS EDITOR Inhaled Oxygen Concentration - - Weight 114.3 kg (252 lb) 05/15/2024 2:37 PM BUSINESS EDITOR Height 175.3 cm (5' 9 ) 05/15/2024 2:37 PM BUSINESS EDITOR Body Mass Index 37.21 05/15/2024 2:37 PM BUSINESS EDITOR Plan of Treatment Upcoming Encounters Date Type Department Care Team (Late st Contact Info) Description 05/25/2025 1:15 PM BUSINESS EDITOR Office Visit [facility] [address] [place] [phone] Amairani Madrigal MD [address] [place] [address] Health Maintenance Due Date Last Done Comments [...] this topic Medical Devices Implanted Type Area Sharepoint Admin Device Identifier Shelf Expiration Date Model / Serial / Lot Tecnis 1-Piece Iol Implanted:Qty: 1 on 02/16/2024 by Denia Marcano MD at [facility] Right: Eye [employer] 12/01/2024 Tecnis 1-Piece Iol Implanted:Qty: 1 on 03/15/2024 by Denia Marcano MD at [facility] Left: Eye [employer] 04/22/2026 [id number] / [id number] / Procedures Procedure Name Priority Date/Time Associated Diagnosis Comments USE ECHOCARDIOGRAM Routine 07/14/2024 9: 27 AM BUSINESS EDITOR Hypertensive heart disease without heart failure LIPID PANEL Routine 01/02/2022 from Last 3 Months or Most Recently Relevant to Health Maintenance Results * USE ECHOCARDIOGRAM (07/14/2024 9:27 AM BUSINESS EDITOR) Anatomical Region Laterality Modality Cardiac Ultrasound 07/14/2024 8:56 AM BUSINESS EDITOR Narrative 07/14/2024 2:48 PM BUSINESS EDITOR Echocardiography Report Pat.Name: Blake Herron Pat.ID: [id number] .Date: 07/14/2024 Refer.MD: Lucie, [facility] Exam Time: 8:56:00 AM Study Type:LUCIE Height: 69 in Weight: 250 lb BSA: 2.27 m2 Age: 3 1950,73Y Sex: M Sonogrphr: Britney Pat. Stat.:Outpatient Reason for Study:Hypertensive heart disease without heart failure Procedures: Study performed at [place], [place] and interpreted by [facility]. 2D, M-mode, Doppler, Color Flow [...] 07/14/2024 Echocardiography Report Pat.Name: Blake Herron Pat.ID: [id number] .Date: 07/14/2024 Refer.MD: Lucie, [facility] Exam Time: 8:56:00 AM Study Type:OUTREACH Height: 69 in Weight: 250 lb BSA: 2.27 m2 Age: 3 1950,73Y Sex: M Sonogrphr: Sf Pat. Stat.:Outpatient Reason for Study:Hypertensive heart disease without heart failure Procedures: Study performed at [place], [place] and interpreted by [facility]. 2D, M-mode, Doppler, Color Flow [...] Recently Relevant to Health Maintenance Insurance MEDICARE [facility] Care Teams Hotbed Operator Relationship Specialty Start Date End Date Mary Smith MD [address] [place] [address] PCP - General INTERNAL MEDICINE 07/15/21 Amairani Madrigal MD [address] [place] [address] [place] [employer] CARDIOVASCULAR DISEASE 03/28/24
--- OUTSIDE RECORDS SUMMARY | 2024-09-20 21:07 | XMS_ITS | Referral Summary ---
Author Organization [facility] Address [address] [place] [address] Care Team Providers Care Search Developer Name Role Phone Unavailable Primary Care Provider Unavailabl e Source Comments [facility],non-owned Affiliates and Associated Physician Practices is amultiple site organization consisting of ambulatory clinics and hospital sitesin [place], [place], [place] and [place]. This disclosure is being madepursuant to the Care Everywhere program and may not contain all information available regarding this patient. Last updated 18.[facility] Social History Tobacco Use Types Packs/Day Years Used Date Smoking Tobacco: Never Assessed Sex and Gender Information Value Date Recorded Sex Assigned at Not on file Gender Identity Not on file Sexual Orientation Not on file Plan of Treatment Not on file
--- OUTSIDE RECORDS SUMMARY | 2024-09-20 21:07 | XMS_ITS | Clinical Summary ---
Author Organization [facility] Address [address] [place] [address] Care Team Providers Care Second Shift Supervisor Name Role Phone Unavailable Primary Care Provider Unavailabl e Source Comments [facility],non-owned Affiliates and Associated Physician Practices is amultiple site organization consisting of ambulatory clinics and hospital sitesin [place], [place], [place]. This disclosure is being madepursuant to the Care Everywhere program and may not contain all information available regarding this patient. Last updated 18.[facility] [employer] Social History Tobacco Use Types Packs/Day Years [...]
--- OUTSIDE RECORDS SUMMARY | 2024-09-20 21:07 | XMS_ITS | Patient Health Summary ---
Author Organization [facility] Address [address] [place] [address] Care Team Providers Care Clinical Applications Manager Name Role Phone Unavailable Primary Care Provider Unavailabl e Note from [facility],non-owned Affiliates and Associated Physician Practices is amultiple site organization consisting of ambulatory clinics and hospital sitesin [place], [place], [place] and [place]. This disclosure is being madepursuant to the Care Everywhere program and may not contain all information available regarding this patient. Last updated 18.[facility] Social History Tobacco Use Types Packs/Day Years Used Date Smoking Tobacco: Never Assessed Sex and Gender Information Value Date Recorded Sex Assigned at Not on file Gender Identity Not on file Sexual Orientation Not on file
[2024-09-20 21:21] VITALS: BP 139/78; PULSE 96; RESP 18; TEMP 37.1; O2SAT 96
--- NOTE | 2024-09-20 21:45 | ED.ABDPAIN ---
HPI - Abdominal Pain General Chief Complaint: Abdominal Pain Stated Complaint: colon infection Time Seen by Provider: 09/20/24 20:54 History of Present Illness HPI narrative: Patient is a 73-year-old male who presents the emergency department this evening after being sent in from start in hospital for admission regarding CT findings. Patient went in there complaining of abdominal, denies any nausea vomiting or diarrhea. CT scan showed sigmoid abscesses and patient was instructed to come to our department for further evaluation. Denies any recent illness, fevers or chills. Related Data Home Medications ?Medication ?Instructions ?Recorded ?Confirmed ?Last Taken ?Type atenolol 25 mg tablet 25 mg PO DAILY 02/28/20 05/16/20 05/16/20 07:45 History losartan 100 mg tablet 50 mg PO DAILY 02/28/20 05/16/20 05/15/20 History metformin 500 mg tablet 500 mg PO QNOON 02/28/20 05/16/20 05/15/20 History pravastatin 40 mg tablet 40 mg PO DAILY 02/28/20 05/16/20 05/15/20 History aspirin 81 mg tablet,delayed 81 mg PO DAILY 02/29/20 05/16/20 05/08/20 History release (Adult Low Dose Aspirin) Allergies Allergy/AdvReac Type Severity Reaction Status Date / Time No Known Allergies Allergy Verified 09/20/24 17:58 Review of Systems Review of Systems: All systems are reviewed and are negative unless stated otherwise in the HPI. [facility] Past Medical History Medical History BMI 36.0-36.9,adult BPH loc w urin obs/LUTS Essential hypertension COPD with emphysema Essential hypertension Benign prostatic hyperplasia Post-operative nausea and vomiting Arthritis Spigelian hernia Status post repair in March 2020. Anxiety Chronic rhinitis Type 2 diabetes mellitus Mixed hyperlipidemia Surgical History Surgical History History of elbow surgery History of hemorrhoidectomy History of hernia repair (~03/20/20) Right spigelian incarcerated hernia repair with mesh. History of bilateral inguinal hernia repair History of hand surgery Related to a crush injury many years ago. History of colonoscopy Family History Family History Mother Hypertension Colon cancer Rheumatic arteritis High cholesterol Sibling Heart disease Social History Social History Social History: Surrogate decision maker: Evelyn Kaye, daughter. Code status: Full code. Smoking packs per day: 1 Smoking cigarettes per day: 20.0 Years smoked: 25 Smoking pack-years: 25.00 Smoking status: Former smoker Tobacco type: cigarettes Smoking end date: 07/12/89 Alcohol intake: current Drinks per week: 1 Alcohol use details: 2 BEERS PER MONTH Substance use: never Substance use type: does not use Living arrangements: alone Additional living arrangements comments: Patient lives alone in his own home in [place]. He has been for approximately 2 years. 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 Gender identity (if verbalized by the patient): Male Spiritual care concerns: No Exam Narrative: General: Alert, awake, afebrile, in no acute distress. HEENT: PERRL, no rhinorrhea, no post nasal drip, oropharynx clear. Neck: Trachea midline, no JVD, no lymphadenopathy. Cardiovascular: Regular rate and rhythm, no murmurs, rubs or gallops, no peripheral edema. Respiratory: Clear to auscultation bilaterally, no tachypnea, no wheezing, no rhonchi, no rubs, no respiratory distress. Abdomen: Soft, nontender, distended, no rebound, no guarding, no peritoneal signs. Musculoskeletal: No joint swelling or deformity, normal muscle tone. Skin: No rashes or petechia, no signs of infection. Psychiatric: Alert and oriented, normal behavior and judgment for situation. Neurological: Alert and oriented to person, place, and time. Follows all commands. No focal deficits, speech is clear and fluent. Course Vital Signs Vital signs: Vital Signs Temperature 98.2 F 09/20/24 18:29 Pulse Rate 67 09/20/24 18: Respiratory Rate 20 09/20/24 18:29 Blood Pressure 140/69 09/20/24 18: Pulse Oximetry 95 09/20/24 18:29 Oxygen Delivery Room Air 09/20/24 18:29 Temperature 98.2 F 09/20/24 18:29 Pulse Rate 67 09/20/24 18:29 Respiratory Rate 20 09/20/24 18:29 Blood Pressure 140/69 09/20/24 18:29 Pulse Oximetry 95 09/20/24 18:29 Oxygen Delivery Room Air 09/20/24 18:29 MDM - Abdominal Pain MDM Narrative Medical decision making narrative: The patient was evaluated by myself in the emergency department. History is obtained from patient who is an independent historian and physical exam was performed. External medical records were reviewed at this time. IV was established and pertinent tests were ordered. Laboratory results obtained at [facility] were reviewed revealing a white count of 12.9, otherwise unremarkable. Lactic acid/magnesium currently pending. Blood cultures were also obtained at this time. Imaging studies obtained add [facility] were reviewed included CT abdomen and pelvis with IV contrast which was independently interpreted by me revealing: IMPRESSION: 1. Bilateral pleural calcifications. 2. Cholelithiasis. 3. Inflammatory changes in the left lower quadrant adjacent to the sigmoid colon and involving the adjacent small bowel loops with multiple abscesses formation. Possibility of enteritis versus internal hernia and less likely diverticulitis are not excluded. 4. Mesenteric lymphadenopathy. 5. Left renal cyst unchanged. 6. Enlarged prostate. 7. Thickened wall of the urinary bladder which may indicate cystitis. Case was discussed with the on-call general surgeon Dr. Hoover at 2144 and per his request patient was started on antibiotics with IV Zosyn and Flagyl. Differential diagnosis considerations include bowel obstruction, diverticulitis, abdominal abscess. Comorbidities impacting this visit include none. I have evaluated and discussed social determinants of health with the patient that could potentially impact subsequent diagnosis and treatment plans. On repeat assessment of the patient, reevaluation revealed that the patient is doing well and is in no acute distress. Patient symptoms have remained stable since he arrived to our emergency department. Repeat vital signs were all reviewed and noted to be stable. Differential diagnosis and treatment plan were discussed with the patient at bedside. Patient agrees with discussion and after shared medical decision making agrees with admission. All questions were answered to the patient's satisfaction. Case was discussed with the on-call hospitalist Dr. Patel at 2214 and she accepted admission. Lab Data Labs: Lab Results 09/20/24 Range/Units 21:39 Lactic Acid 0.7 (0.7-2.0) mmol/L Magnesium 1.9 (1.6-2.3) mg/dL Discharge Plan Discharge Clinical Impression: Abscess of sigmoid colon, Diverticulitis Patient Disposition: Still a Patient Condition: Improved Instructions: Antibiotic Form Patient Language: Armenian Prescriptions: No Action losartan 100 mg tablet 50 mg PO DAILY pravastatin 40 mg tablet 40 mg PO DAILY atenolol 25 mg tablet 25 mg PO DAILY metformin 500 mg tablet 500 mg PO QNOON aspirin [Adult Low Dose Aspirin] 81 mg tablet,delayed release (DR/EC) 81 mg PO DAILY hydrocodone-acetaminophen 5-325 mg tablet 1 - 2 tablet PO Q6H PRN (Reason: pain) Qty: 20 0RF docusate sodium [Colace] 100 mg capsule 100 mg PO DAILY Qty: 30 0RF ciprofloxacin HCl 500 mg tablet 500 mg PO Q12H Qty: 6 0RF Follow-up/Referrals: Mary Smith MD [Primary Care Provider] - Time of Disposition: 21:58
[2024-09-20 21:55] LABS: Lactic Acid Reflex 0.7 mmol/L (0.7-2.0); Magnesium 1.9 mg/dL (1.6-2.3)
[2024-09-20] MEDS: PIPERACILLIN/TAZ 4.5G/NS 100ML 4.5 GM/100 ML BAG IVPB (22:34)
[2024-09-20 23:46] LABS: Estimated CRCL calculation 67 ml/min; Estimated Glomerular Filt Rate > 60
[2024-09-20] MEDS: metroNIDAZOLE 500 MG/ISO 100ML 500 MG/100 ML BAG 100 MG IVPB (23:52)
[2024-09-21 00:13] VITALS: BP 141/71; PULSE 99; RESP 18; O2SAT 100
[2024-09-21 00:24] LABS: Glucose Point of Care 205 mg/dl (65-105)
[2024-09-21 00:39] VITALS: BP 126/59; PULSE 60; RESP 16; TEMP 36.9; O2SAT 95
--- NOTE | 2024-09-21 00:50 | P.HP_ITS ---
H&P: HPI History of Present Illness Date/Time: 09/21/24 00:50 Chief Complaint: Abdominal pain, abnormal CT abdomen outpatient Narrative: 73-year-old male with a past medical history of essential hypertension, type 2 diabetes, hyperlipidemia, BPH, sigmoid diverticulosis, bilateral inguinal hernia repair among other abdominal surgical procedures who presented to our hospital after outpatient CT at [place] demonstrated intra-abdominal abscesses. The patient reports that he initially started having symptoms on September 05. He developed sudden acute lower abdominal pain. It was associated with the general ly bloating and discomfort. He reported complete lack of appetite and severe pain to the point that he he felt like he could not get out of bed. His roommate was bringing him water and helping with his daily cares. He reported the pain would be severe and cramping and then would let up. His pain significantly improved after the 1st 5-6 days. He was able to eat and drink after that time but still has not had much appetite. He denied any nausea or vomiting. He denies any fevers but was having intermittent sweats. He has had a 10 lb weight loss since onset of symptoms. He denies any subjective fevers or chills. He reports that he still has pain if there is palpation to load the lower abdomen. He has not had any associated diarrhea. He reported with his decreased appetite he had decreased number of stools but the 2 stools that he has had since onset the symptoms have been normally formed and brown. Outpatient labs demonstrated leukocytosis with a white count of around [address] of the abdomen pelvis with contrast demonstrated multiple abscesses in the area of the sigmoid colon with inflammatory changes. Patient also had chronic findings of bilateral pleural calcifications, left renal cyst, enlarged prostate in thickened wall of the urinary bladder. However, patient denies any urinary symptoms and reports that he urinates well as long as he takes his finasteride. The patient does have history of ?borderline? diabetes but his primary care doctor recently discontinued his metformin with his outpatient A1c in July being 6%. He is euglycemic in the ER. Review of Systems Review of Systems: 12 systems were reviewed with pertinent positives and negatives per HPI. Except as documented in the HPI, all other systems were reviewed and are negative. He is edentulous and has not had any teeth in 30 years. He reported that he almost while he had his teeth pulled. He reports that he does not sleep well. He does not think he snores ?that much?. [facility] Past Medical History Medical History (Updated 09/20/24 @ 22:47 by Judie Patel DO) Hepatic steatosis Sigmoid diverticulosis BMI 36.0-36.9,adult Essential hypertension COPD with emphysema Benign prostatic hyperplasia Post-operative nausea and vomiting Arthritis Spigelian hernia Status post repair in March 2020. Anxiety Chronic rhinitis Type 2 diabetes mellitus Mixed hyperlipidemia Surgical History Surgical History (Updated 09/21/24 @ 02:05 by Judie Patel DO) Status post cataract extraction of both eyes with insertion of intraocular lens S/P TURP (transurethral resection of prostate) (05/2020) History of elbow surgery History of hemorrhoidectomy History of hernia repair (~03/20/20) Right spigelian incarcerated hernia repair with mesh. History of bilateral inguinal hernia repair History of hand surgery Related to a crush injury many years ago. History of colonoscopy Family History Family History Mother Hypertension Colon cancer Rheumatic arteritis High cholesterol Sibling Heart disease Social History Social History (Updated 09/21/24 @ 02:04 by Judie Patel DO) Social History: Patient reports that he has been since 2019. He has 1 biological daughter Evelyn and a stepdaughter Leila. His great nephew and a woman who was homeless now live with him. 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 He drinks 3-4 alcoholic beverages a month. He used to smoke a pack of cigarettes per day for 25 years but quit in the . He denies illicit substance use. 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 Healthcare power of environmental attorney: Rula Pro (stepdaughter) Code status: Full code. Smoking packs per day: 1 Smoking cigarettes per day: 20.0 Years smoked: 25 Smoking pack-years: 25.00 Smoking status: Former smoker Tobacco type: cigarettes Smoking end date: 07/12/89 Alcohol intake: current Drinks per week: 3 Alcohol use details: 2 BEERS PER MONTH Substance use: never Substance use type: does not use Do You Feel Safe in your Home?: Yes Lack of Transportation: No Lack of Food: Never True Current Housing: I Have Housing Concerned About Future Housing: No Difficulty Paying Gas/Electric Bills: No Difficulty Paying for Meds: No Currently Unemployed: No Education: Bachelor's Degree Difficulty w/ Childcare or Family Care: No Living arrangements: alone Additional living arrangements comments: Patient lives in his own home in [place]. He has been since approximately 2019. 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 Gender identity (if verbalized by the patient): Male Spiritual care concerns: No Meds Home Medications and Allergies Home Medications ?Medication ?Instructions ?Recorded ?Confirmed ?Type atenolol 25 mg tablet 25 mg PO DAILY 02/28/20 09/21/24 History losartan 100 mg tablet 50 mg PO DAILY 02/28/20 09/21/24 History pravastatin 40 mg tablet 40 mg PO DAILY 02/28/20 09/21/24 History docusate sodium 100 mg capsule 100 mg PO DAILY #30 caps 05/17/20 09/21/24 Rx (Colace) finasteride 5 mg tablet 5 mg PO DAILY 09/21/24 09/21/24 History meloxicam 15 mg tablet 15 mg PO DAILY 09/21/24 09/21/24 History Allergies Allergy/AdvReac Type Severity Reaction Status Date / Time No Known Allergies Allergy Verified 09/20/24 17:58 Vital Signs Vital Signs - 24 hr 09/20/24 18:29 Temperature 98.2 F Pulse Rate 67 Respiratory Rate 20 Blood Pressure 140/69 Pulse Oximetry 95 Oxygen Delivery Room Air Exam Narrative: Weight 114.6 kg BMI 37.3 Const: Other: Obese, no acute distress, appears stated age HENMT: Other: Mucous membranes are tacky, no oral pharyngeal erythema, crowded posterior oropharynx, edentulous in upper and lower jaw Eyes: Other: Pupils are equal and reactive with evidence of lens replacements bilaterally, no conjunctival pallor, no scleral icterus Neck: Other: Large neck circumference, no JVD, irregular thyroid Resp: Other: Clear to auscultation bilaterally, no increased work of breathing Cardio: Other: Regular rate, regular rhythm, 2+ bilateral radial and pedal pulses GI: Other: Distended, normoactive bowel sounds, no organomegaly, no guarding, no rebound, tenderness in the left lower quadrant to palpation Skin: Other: No jaundice, no pallor, no petechia Neuro: Other: Alert oriented, speech is clear, no facial asymmetry, no localizing neurologic deficits noted during the course of conversation Extrem: Other: No clubbing, cyanosis or edema, age-related arthritic changes noted bilateral knees Psych: Other: Loquacious, Appropriate mood and affect, pleasant and cooperative H&P: Results Labs Labs: Outpatient labs: CBC: WBC 12.9 he hemoglobin 14.4 hematocrit 44 platelet count 243 % neutrophils 78% CMP: Sodium 139 potassium 3.9 chloride 104 CO2 27 BUN 15 creatinine 0.98 glucose 123 AST 14 ALT 33 alk-phos 103 total protein 7.5 albumin 3.5 Magnesium 1.9 amylase [address] abdomen pelvis w con Ordering provider: Mary Smith MD History: 73 years Male with . Acute diffuse abdominal pain . Comparison: October 13, 2021 Technique: CT abdomen and pelvis with IV and without oral contrast. Automated exposure control and iterative reconstruction technique were employed. The dose- length product was 1214.60 mGy-cm. 100 mL Omnipaque 350 was given IV. Findings: VISUALIZED LOWER CHEST: Normal calcification is seen bilaterally. UPPER ABDOMINAL ORGANS: Liver: Normal. Gallbladder: Cholelithiasis. Spleen: Normal. Stomach/duodenum: Sliding hiatus hernia. Pancreas: Normal. Adrenals: Normal. Kidneys: Left kidney lower pole simple cyst measuring 4.8 cm. PELVIC ORGANS: The bladder is slightly underfilled with thickened wall. Evaluation for cystitis advised. Enlarged prostate. BOWEL AND MESENTERY: Colon: Inflammatory changes are seen around the proximal sigmoid colon and adjacent small bowel with multiple small abscesses measuring 2.9 x 1.6 cm and possibly small bowel intramural abscess measuring 1.9 x 1.9 cm. Differential include diverticulitis and enteritis. Surrounding fat stranding is seen in the area. Possibility of internal hernia should be considered. Normal appendix. Small Bowel: . No obstruction. Peritoneum/mesentery: No free air or free fluid. Mesenteric lymphadenopathy is seen with the largest measures 1.9 cm. RETROPERITONEUM: Mild atheromatous disease of the abdominal aorta. Atherosclero tic changes of the origin of the superior mesenteric artery. No retroperitoneal lymphadenopathy. MUSCULOSKELETAL: Superficial soft tissues: The superficial soft tissues are normal. Bones: Age appropriate degenerative changes of the spine. IMPRESSION: 1. Bilateral pleural calcifications. 2. Cholelithiasis. 3. Inflammatory changes in the left lower quadrant adjacent to the sigmoid colon and involving the adjacent small bowel loops with multiple abscesses formation. Possibility of enteritis versus internal hernia and less likely diverticulitis are not excluded. 4. Mesenteric lymphadenopathy. 5. Left renal cyst unchanged. 6. Enlarged prostate. 7. Thickened wall of the urinary bladder which may indicate cystitis. Assessment and Plan Assessment and plan (1) Abscess of sigmoid colon: Code(s): K63.0 - Abscess of intestine Status: Acute (2) Diverticulitis: Code(s): K57.92 - Diverticulitis of intestine, part unspecified, without perforation or abscess without bleeding Status: Acute (3) Type 2 diabetes mellitus: Qualifiers: Diabetes mellitus complication status: without complication Diabetes mellitus rat exterminator insulin use: without rat exterminator use Qualified Code(s): E11.9 - Type 2 diabetes mellitus without complications Code(s): E11.9 - Type 2 diabetes mellitus without complications Status: Acute Plan Patient has sigmoid abscess is likely secondary to sigmoid diverticulitis with localized abscess and perforation. Patient was evaluated in ER and started on Zosyn and Flagyl. Will discontinue Flagyl but continue Zosyn. General surgery has been consulted. Patient remains NPO except meds with sips and on maintenance IV fluids. Patient does have history of diabetes but is currently euglycemic. Will place patient on low-dose sliding scale insulin with Accu- Cheks q.6 hours while NPO with hypoglycemia protocol as needed. Patient's blood pressures are stable will continue patient's antihypertensives and medications for BPH with sips of water. Will hold patient's home meloxicam. Quality VTE Prophylaxis VTE prophylaxis: pharmacologic ordered (Lovenox 40 mg subQ daily.) Hospitalist [facility] Advance Care Plan I have confirmed that the patient's Advanced Care Plan is present, code status is documented, or surrogate decision maker is listed in patient medical record.: Yes Medication Reconciliation I have utilized all available resources to obtain, update and review the patients current medications (includes all prescriptions, OTC, herbals, cannabis, and nutritional supplements).: Yes
--- NOTE | 2024-09-21 00:56 | ADMGEN ---
This patient, Blake Herron, was admitted to [facility] Surg Room 325-02. Patient/family oriented to hospital policies and general routines including ID bracelet, bed and alarms, visiting hours, pain management, procedures, bathroom and other care routines, personal items, smoking policy, room service/diet, and visiting hours. Information on how to activate the Rapid Response Team has been discussed. Patient/Family are encouraged to report perceived risks to care and to ask questions if they do not understand what they are told or what they should do.
[2024-09-21] MEDS: LACTATED RINGERS 1,000 ML 100 ML IV CONT ×2 (01:24→09:45)
[2024-09-21] MEDS: INSULIN ASPART (*BKC) 100 UNITS/ML SUB-Q (01:27)
[2024-09-21 01:34] VITALS: PULSE 99; RESP 18; O2SAT 100
[2024-09-21 04:15] VITALS: BP 108/59; PULSE 57; RESP 16; TEMP 36.8; O2SAT 97
[2024-09-21] MEDS: PIPERACILLN/TAZ 3.375GM/NS50ML 3.375 GM/50 ML BAG IVPB ×4 (05:22→23:18)
--- NOTE | 2024-09-21 07:53 | PM.IMPN ---
Progress Note: A&P Assessment and Plan (1) Diverticulitis: Code(s): K57.92 - Diverticulitis of intestine, part unspecified, without perforation or abscess without bleeding Status: Acute Assessment and Plan: - Monitor vital signs, I&Os, track stool output, watch for bloody stools, neuro status and patient is a fall risk - Monitor serum electrolytes and CBC - Gentle IV fluid resuscitation - Zosyn 3.375g q6hr - Diet: Clear liquid (2) Abscess of sigmoid colon: Code(s): K63.0 - Abscess of intestine Status: Deleted Assessment and Plan: - Intra-abdominal abscess (peritoneal) per General Surgery - CT scan of the abdomen from [place]: Inflammatory changes in the left lower quadrant adjacent to the sigmoid colon and involving the adjacent small bowel loops with multiple abscesses formation. - General surgery consulted, report states that abscesses are small and do no require percutaneous drainage - Plan to continue IV abx and monitor WBC/pain (3) Type 2 diabetes mellitus: Qualifiers: Diabetes mellitus complication status: without complication Diabetes mellitus intermediate frame tender insulin use: without longterm use Qualified Code(s): E11.9 - Type 2 diabetes mellitus without complications Code(s): E11.9 - Type 2 diabetes mellitus without complications Status: Acute Assessment and Plan: - hypoglycemia protocol - Glucose 124 - home medication - none - correct regimen ordered - low dose TIDWM and HS - A1C 6.0 (on 08/04/2024) (4) Essential hypertension: Code(s): I10 - Essential (primary) hypertension Status: Acute Assessment and Plan: - BP 108/59 - On Atenolol 25mg, Losartan 100mg, continue (5) Hyperlipemia: Code(s): E78.5 - Hyperlipidemia, unspecified Status: Acute Assessment and Plan: - Continue Pravastatin 40mg daily (6) BPH (benign prostatic hyperplasia): Code(s): N40.0 - Benign prostatic hyperplasia without lower urinary tract symptoms Status: Acute Assessment and Plan: - Continue finasteride 5mg daily Subjective Date/time seen: 09/21/24 07:53 Interval history: Patient is a 73 year old male who presented to the emergency department after an outpatient CT scan at [place] demonstrated intra-abdominal abscesses. Patient started experiencing acute lower abdominal pain, lack of appetite, and cramping on Sep 05. Initially his symptoms improved, but pt lost 10lbs since onset of symptoms due to decreased appetite. 09/21/2024 Patient is sitting comfortably in bed. General surgery was consulted and saw patient this AM. They recommend continuing with IV abx, monitoring his symptoms and WBC, and continuing clear liquid diet today with hopes to advance diet tomorrow. They also discussed with patient recommendation to schedule a colonoscopy in the next 4-6 weeks. At this time, the patient denies any abdominal pain but still has some tenderness to the left lower quadrant of the abdomen. No peritoneal signs. Review of Systems Review of Systems: 12 systems were reviewed with pertinent positives and negatives per HPI. Except as documented in the HPI, all other systems were reviewed and are negative. He is edentulous and has not had any teeth in 30 years. He reported that he almost while he had his teeth pulled. He reports that he does not sleep well. He does not think he snores ?that much?. Exam Narrative: Weight 114.6 kg BMI 37.3 Const: Other: Obese, no acute distress, appears stated age HENMT: Other: Mucous membranes are tacky, no oral pharyngeal erythema, crowded posterior oropharynx, edentulous in upper and lower jaw Eyes: Other: Pupils are equal and reactive with evidence of lens replacements bilaterally, no conjunctival pallor, no scleral icterus Neck: Other: Large neck circumference, no JVD, irregular thyroid Resp: Other: Clear to auscultation bilaterally, no increased work of breathing Cardio: Other: Regular rate, regular rhythm, 2+ bilateral radial and pedal pulses GI: Other: Distended, normoactive bowel sounds, no organomegaly, no guarding, no rebound, tenderness in the left lower quadrant to palpation Skin: Other: No jaundice, no pallor, no petechia Neuro: Other: Alert oriented, speech is clear, no facial asymmetry, no localizing neurologic deficits noted during the course of conversation Extrem: Other: No clubbing, cyanosis or edema, age-related arthritic changes noted bilateral knees Psych: Other: Loquacious, Appropriate mood and affect, pleasant and cooperative Objective Data Vital Signs Vital Signs: Vital Signs - 24 hr 09/20/24 18:29 09/20/24 21:21 09/21/24 00:13 Temperature 98.2 F 98.7 F Pulse Rate 67 96 99 Respiratory Rate 20 18 18 Blood Pressure 140/69 139/78 141/71 H Pulse Oximetry 95 96 100 Oxygen Delivery Room Air 09/21/24 00:39 09/21/24 01:34 09/21/24 04:15 Temperature 98.5 F 98.2 F Pulse Rate 60 99 57 L Respiratory Rate 16 18 16 Blood Pressure 126/59 L 108/59 L Pulse Oximetry 95 100 97 Oxygen Delivery Room Air Intake/Output Intake/Output: Intake & Output 09/18/24 09/19/24 09/20/24 09/21/24 23:59 23:59 23:59 23:59 Intake Total 100 100 Balance 100 100 Meds/Results Medications: Active Medications Generic Name Dose Route Start Last Admin Trade Name Freq PRN Reason Stop Dose Admin Acetaminophen 650 mg 09/20/24 22:34 Acetaminophen 325 Mg Tablet PO Q4H PRN Mild Pain (1-3) or Fever Atenolol 25 mg 09/21/24 09:00 Atenolol 25 Mg Tablet PO DAILY JOVANA Dextrose 12.5 gm 09/20/24 22:51 Dextrose 50% 25 Gm/50 Ml Syringe IV PUSH PRN PRN Hypoglycemia Protocol Enoxaparin Sodium 40 mg 09/21/24 09:00 Enoxaparin 40 Mg/0.4 Ml Syringe SUB-Q DAILY JOVANA Finasteride 5 mg 09/21/24 09:00 Finasteride 5 Mg Tablet PO DAILY JOVANA Glucagon 1 mg 09/20/24 22:51 Glucagon For Inj 1 Mg Vial IM PRN PRN Hypoglycemia Protocol Glucose 15 gm 09/20/24 22:51 Glucose Oral Gel 15 Gm Of Glucse In 37.5 Gm Tube PO PRN PRN Hypoglycemia Protocol Lactated Ringer's 1,000 mls @ 100 mls/hr 09/20/24 22:20 09/21/24 01:24 Lr - Lactated Ringers Iv IV CONT 100 mls/hr .Q10H JOVANA Administration Piperacillin/Tazobactam/Dextrose 3.375 gm in 50 mls @ 100 mls/hr 09/21/24 06:00 09/21/24 05:22 Zosyn 3.375 Gm/Ns 50 Ml IVPB 100 mls/hr Q6HR JOVANA Administration Dextrose 1,000 mls @ 100 mls/hr 09/20/24 22:51 Dextrose 5% 1,000 Ml IVPB PRN PRN Hypoglycemia Protocol Insulin Aspart 2 - 5 units 09/21/24 00:00 09/21/24 07:14 Insulin Aspart (*Bkc) 100 Units/Ml SUB-Q Not Given Q6HR [facility] Protocol Losartan Potassium 50 mg 09/21/24 09:00 Losartan Potassium 50 Mg Tablet PO DAILY [facility] Ondansetron HCl 4 mg 09/20/24 22:34 Ondansetron Inj 4 Mg/2 Ml Vial IV PUSH Q6H PRN Nausea And Vomiting Pantoprazole Sodium 40 mg 09/21/24 09:00 Pantoprazole Sodium Iv 40 Mg Vial IV PUSH QAM [facility] Pravastatin Sodium 40 mg 09/21/24 09:00 Pravastatin Sodium 20 Mg Tablet PO DAILY [facility] Labs Labs: Laboratory Results - last 24 hr 09/20/24 09/21/24 21:39 00:20 Creatinine 1.04 Estim Creat Clear Calc 67 Estimated GFR > 60 POC Capillary Glucose 205 H Lactic Acid 0.7 Magnesium 1.9 Quality VTE Prophylaxis VTE prophylaxis: pharmacologic ordered (Lovenox 40 mg subQ daily.)
[2024-09-21 08:27] LABS: Basophils Percent Auto 0.3 % (0.2-1.2); Eosinophils Absolute Auto 0.2 K/mm3 (0-0.3); Eosinophils Percent Auto 1.7 % (0-4.4); Hematocrit 39.4 % (42.0-52.0); Immature Granulocyte Absolute 0.06 K/mm3 (0.00-0.031); Immature Granulocyte Percent A 0.7 % (0-0.5); Lymphocytes Absolute Auto 1.59 K/mm3 (0.9-3.2); Lymphocytes Percent Auto 17.7 % (18.3-44.2); Mean Corpuscular Hemoglobin 29.7 pg (26-34); Mean Corpuscular Volume 90.2 fl (80-100); Mean Platelet Volume 11.1 fl (7.4-10.4); Monocytes Absolute Auto 0.8 K/mm3 (0.1-0.6); Monocytes Percent Auto 8.3 % (2.6-8.5); Neutrophils Absolute Auto 6.4 K/mm3 (1.3-6.7); Neutrophils Percent Auto 71.3 % (45.5-73.1); Platelet Count Result 179 k/mm3 (150-375); Red Blood Count 4.37 M/mm3 (4.6-6.20); Red Cell Distribution Width 12.1 % (11.5-14.5)
[2024-09-21 09:15] LABS: Anion Gap 8 mmol/L (4-12); Blood Urea Nitrogen 17 mg/dL (9-20); Calcium 8.7 mg/dL (8.4-10.2); Carbon Dioxide 25 mmol/L (22-30); Chloride 106 mmol/L (98-107); Estimated CRCL calculation 78 ml/min; Estimated Glomerular Filt Rate > 60; Glucose 124 mg/dL (65-110); Potassium 3.9 mmol/L (3.4-5.0); Sodium 139 mmol/L (137-145)
[2024-09-21] MEDS: PANTOPRAZOLE SODIUM IV 40 MG VIAL IV PUSH (09:39)
[2024-09-21] MEDS: FINASTERIDE 5 MG TABLET PO (09:40)
[2024-09-21] MEDS: LOSARTAN POTASSIUM 50 MG TABLET PO (09:40)
[2024-09-21] MEDS: ENOXAPARIN 40 MG/0.4 ML SYRINGE SUB-Q (09:40)
[2024-09-21] MEDS: PRAVASTATIN SODIUM 20 MG TABLET 40 MG PO (09:40)
[2024-09-21] MEDS: atenoloL 25 MG TABLET PO (09:40)
--- NOTE | 2024-09-21 10:31 | P.CONGS_ITS ---
Assessment and Plan Assessment and plan (1) Intra-abdominal abscess: Code(s): K65.1 - Peritoneal abscess Status: Acute Assessment and Plan: Patient had an acute onset of mid to lower abdominal pain 16 days ago that improved within a week, but has continued to have intermittent abdominal pain. CT scan of the abdomen and pelvis showed inflammatory change between a loop of small bowel and the proximal sigmoid colon with multiple small abscesses. Differentials would include enteritis versus diverticulitis. The abscesses are small and do not require percutaneous drainage. He is already clinically improving with IV antibiotics, and his WBC count has normalized. He is not having any abdominal pain today, but has some tenderness in the left mid to lower abdomen. No peritoneal signs. No indication for urgent surgical management at this time. We would recommend to continue IV antibiotics. We will start him on a clear liquid diet today and continue his IV fluids for now. He denies a history of diverticulitis in the past. He would be due for a colonoscopy this year and we discussed that we would recommend having a colonoscopy no sooner than 4-6 weeks after this acute episode has resolved. (2) Diverticulitis: Code(s): K57.92 - Diverticulitis of intestine, part unspecified, without perforation or abscess without bleeding Status: Acute (3) COPD with emphysema: Code(s): J43.9 - Emphysema, unspecified Status: Acute (4) Type 2 diabetes mellitus: Qualifiers: Diabetes mellitus long distance operator insulin use: without fpc use Diabetes mellitus complication status: without complication Qualified Code(s): E11.9 - Type 2 diabetes mellitus without complications Code(s): E11.9 - Type 2 diabetes mellitus without complications Status: Acute (5) Essential hypertension: Code(s): I10 - Essential (primary) hypertension Status: Acute Plan I have discussed the patient's case and plan of care with Dr. Hoover. Thank you for allowing us to see the patient in consultation and we will continue to follow along with you. History of Present Illness Consult details Consult date: 09/21/24 Reason for consult: other (Diverticulitis, sigmoid abscess) Requesting physician: Heather Esquivel MD Narrative: This is a 73-year-old man with PMH of HTN, type 2 diabetes, HLD, and BPH, who we have been asked to see in surgical consultation for diverticulitis with sigmoid abscess. He developed abdominal pain after eating breakfast on September 05. The onset of pain was sudden any reports that radiated across his entire abdomen. It was associated with bloating and poor appetite, but no nausea or vomiting. The pain lasted for about 6 days. He reports after the first few days, it began to improve. Since then, he has not eat much due to the lack of appetite. He reports losing about 10 lb since his symptoms started. Although his pain improved after about 6 days, he continued to have mild intermittent pain over the past few weeks. The pain would come and go. He feels like at times the pain was aggravated by eating, but would subside spontaneously. He reports constipation for the past 2 weeks, but was still moving his bowels every couple days. His last bowel movement was 2 days ago. No diarrhea or blood in his stools. Due to his persistent symptoms, he called his PCP and was evaluated yesterday. He had outpatient labs that showed mild leukocytosis with white blood cell count of 12,900, and a CT scan of the abdomen and pelvis that showed inflammatory changes in the left lower quadrant adjacent to the sigmoid colon and involving the adjacent small bowel loops with multiple small abscesses, differential including enteritis versus diverticulitis. Also noted is cholelithiasis, bilateral pleural calcifications, mesenteric lymphadenopathy, left renal cyst unchanged, enlarged prostate, and thickened wall of the urinary bladder which may indicate cystitis. He was directed to the ED for further evaluation. UA negative for UTI. Blood cultures ordered. Vital signs stable in the ED. He was admitted and started on IV Zosyn. He is currently NPO. This morning, he denies having any abdominal pain or nausea. His last colonoscopy was 5 years ago and he is due this year for a repeat colonoscopy. He had polyps removed during his last colonoscopy. Previous abdominal surgeries include a robotic assisted laparoscopic incarcerated right spigelian hernia repair with mesh and laparoscopic bilateral inguinal hernia repair with mesh. He had a unilateral recurrent inguinal hernia that was repaired a few years later with mesh. Denies any history of diverticulitis. He does have a family history of colon cancer in his mother. Review of Systems 2 Review of Systems: All systems reviewed & are unremarkable except as noted in HPI and below PMFSH Past Medical History Medical History Hepatic steatosis Sigmoid diverticulosis BMI 36.0-36.9,adult Essential hypertension COPD with emphysema Benign prostatic hyperplasia Post-operative nausea and vomiting Arthritis Spigelian hernia Status post repair in March 2020. Anxiety Chronic rhinitis Type 2 diabetes mellitus Mixed hyperlipidemia Surgical History Surgical History Status post cataract extraction of both eyes with insertion of intraocular lens S/P TURP (transurethral resection of prostate) (05/2020) History of elbow surgery History of hemorrhoidectomy History of hernia repair (~03/20/20) Right spigelian incarcerated hernia repair with mesh. History of bilateral inguinal hernia repair History of hand surgery Related to a crush injury many years ago. History of colonoscopy Family History Family History Mother Hypertension Colon cancer Rheumatic arteritis High cholesterol Sibling Heart disease Social History Social History Social History: Patient reports that he has been since 2019. He has 1 biological daughter Evelyn and a stepdaughter Leila. His great nephew and a woman who was homeless now live with him. 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 He drinks 3-4 alcoholic beverages a month. He used to smoke a pack of cigarettes per day for 25 years but quit in the . He denies illicit substance use. 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 Healthcare power of health care attorney: Rula Pro (stepdaughter) Code status: Full code. Smoking packs per day: 1 Smoking cigarettes per day: 20.0 Years smoked: 25 Smoking pack-years: 25.00 Smoking status: Former smoker Tobacco type: cigarettes Smoking end date: 07/12/89 Alcohol intake: current Drinks per week: 3 Alcohol use details: 2 BEERS PER MONTH Substance use: never Substance use type: does not use Do You Feel Safe in your Home?: Yes Lack of Transportation: No Lack of Food: Never True Current Housing: I Have Housing Concerned About Future Housing: No Difficulty Paying Gas/Electric Bills: No Difficulty Paying for Meds: No Currently Unemployed: No Education: Bachelor's Degree Difficulty w/ Childcare or Family Care: No Living arrangements: alone Additional living arrangements comments: Patient lives in his own home in [place]. He has been since approximately 2019. 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 Gender identity (if verbalized by the patient): Male Spiritual care concerns: No Meds Home Medications and Allergies Home Medications ?Medication ?Instructions ?Recorded ?Confirmed ?Type atenolol 25 mg tablet 25 mg PO DAILY 02/28/20 09/21/24 History losartan 100 mg tablet 50 mg PO DAILY 02/28/20 09/21/24 History pravastatin 40 mg tablet 40 mg PO DAILY 02/28/20 09/21/24 History docusate sodium 100 mg capsule 100 mg PO DAILY #30 caps 05/17/20 09/21/24 Rx (Colace) finasteride 5 mg tablet 5 mg PO DAILY 09/21/24 09/21/24 History meloxicam 15 mg tablet 15 mg PO DAILY 09/21/24 09/21/24 History Allergies Allergy/AdvReac Type Severity Reaction Status Date / Time No Known Allergies Allergy Verified 09/20/24 17:58 Vital Signs Vital Signs - 24 hr 09/20/24 18:29 09/20/24 21:21 09/21/24 00:13 Temperature 98.2 F 98.7 F Pulse Rate 67 96 99 Respiratory Rate 20 18 18 Blood Pressure 140/69 139/78 141/71 H Pulse Oximetry 95 96 100 Oxygen Delivery Room Air 09/21/24 00:39 09/21/24 01:34 09/21/24 04:15 Temperature 98.5 F 98.2 F Pulse Rate 60 99 57 L Respiratory Rate 16 18 16 Blood Pressure 126/59 L 108/59 L Pulse Oximetry 95 100 97 Oxygen Delivery Room Air 09/21/24 08:00 Temperature Pulse Rate Respiratory Rate Blood Pressure Pulse Oximetry Oxygen Delivery Room Air Exam 2 Const: General: comfortable and no acute distress Nutritional Appearance: o verweight Orientation/consciousness: patient oriented x3 HENMT: Head: normocephalic and atraumatic Ears: hearing grossly normal bilaterally Mouth: Yes moist mucous membranes Eyes: General: appearance normal, both eyes and all related structures P upils: Equal, round and reactive pupils present Neck: Neck: normal visual inspection and full ROM Resp: Effort & Inspection: no respiratory distress Auscultation: clear to auscultation bilaterally Cardio: Rate: regular rate Rhythm: regular rhythm Peripheral pulses: P eripheral pulses 2+ throughout GI: Inspection: scar (Small port site scars) Auscultation: normal bowel sounds Other: Abdomen is rounded but nondistended and soft, he has tenderness in the left periumbilical area and mid left abdomen down to the LLQ. No guarding or rebound tenderness. Skin: General skin exam: normal color Neuro: General: moves all extremities and no focal motor deficits Speech: n ormal speech Motor exam (neuro): 5/5 motor strength present throughout Extrem: General: normal to inspection and no edema Psych: Mental Status: mental status grossly normal Attitude: cooperative Insight: Good insight present (Psych) Judgement: Good judgement present (Psych) Results Labs 09/21/24 08:13 09/21/24 08:13 Labs: Abnormal lab results 09/21/24 09/21/24 Range/Units 00:20 08:13 RBC 4.37 L (4.6-6.20) M/mm3 Hgb 13.0 L (14.0-18.0) g/dL Hct 39.4 L (42.0-52.0) % MPV 11.1 H (7.4-10.4) fl Immature Gran % (Auto) 0.7 H (0-0.5) % Lymph % (Auto) 17.7 L (18.3-44.2) % [place] # (Auto) 0.8 H (0.1-0.6) K/mm3 Abs Immat Gran (auto) 0.06 H (0.00-0.031) K/mm3 Glucose 124 H (65-110) mg/dL POC Capillary Glucose 205 H (65-105) mg/dl Diabetes panel 09/20/24 09/21/24 Range/Units 21:39 08:13 Sodium 139 (137-145) mmol/L Potassium 3.9 (3.4-5.0) mmol/L Chloride 106 (98-107) mmol/L Carbon Dioxide 25 (22-30) mmol/L BUN 17 (9-20) mg/dL Creatinine 1.04 0.90 (0.7-1.3) mg/dL Glucose 124 H (65-110) mg/dL Calcium 8.7 (8.4-10.2) mg/dL Calcium panel 09/21/24 Range/Units 08:13 Calcium 8.7 (8.4-10.2) mg/dL Pituitary panel 09/20/24 09/21/24 Range/Units 21:39 08:13 Sodium 139 (137-145) mmol/L Potassium 3.9 (3.4-5.0) mmol/L Chloride 106 (98-107) mmol/L Carbon Dioxide 25 (22-30) mmol/L BUN 17 (9-20) mg/dL Creatinine 1.04 0.90 (0.7-1.3) mg/dL Glucose 124 H (65-110) mg/dL Calcium 8.7 (8.4-10.2) mg/dL Adrenal panel 09/20/24 09/21/24 Range/Units 21:39 08:13 Sodium 139 (137-145) mmol/L Potassium 3.9 (3.4-5.0) mmol/L Chloride 106 (98-107) mmol/L Carbon Dioxide 25 (22-30) mmol/L BUN 17 (9-20) mg/dL Creatinine 1.04 0.90 (0.7-1.3) mg/dL Glucose 124 H (65-110) mg/dL Calcium 8.7 (8.4-10.2) mg/dL All other labs normal.
[2024-09-21 14:00] VITALS: BP 128/74; PULSE 54; RESP 22; TEMP 36.8; O2SAT 97
[2024-09-21 16:22] LABS: Glucose Point of Care 98 mg/dl (65-105)
[2024-09-21 20:39] VITALS: BP 129/74; PULSE 56; RESP 16; TEMP 36.6; O2SAT 97
[2024-09-21 21:03] LABS: Glucose Point of Care 144 mg/dl (65-105)
[2024-09-22 01:50] LABS: Glucose Point of Care 202 mg/dl (65-105)
[2024-09-22] MEDS: LACTATED RINGERS 1,000 ML 100 ML IV CONT ×2 (03:18→09:01)
[2024-09-22 04:48] VITALS: BP 151/62; PULSE 54; RESP 16; TEMP 36.3; O2SAT 99
[2024-09-22] MEDS: PIPERACILLN/TAZ 3.375GM/NS50ML 3.375 GM/50 ML BAG IVPB ×4 (05:15→23:06)
[2024-09-22 06:22] LABS: Hematocrit 39.5 % (42.0-52.0); Hemoglobin 12.7 g/dL (14.0-18.0); Mean Corpuscular HGB Conc 32.2 g/dl (32-36); Mean Corpuscular Hemoglobin 29.5 pg (26-34); Mean Corpuscular Volume 91.6 fl (80-100); Mean Platelet Volume 11.5 fl (7.4-10.4); Platelet Count Result 167 k/mm3 (150-375); Red Blood Count 4.31 M/mm3 (4.6-6.20); White Blood Count 7.3 K/mm3 (4.5-10.0)
[2024-09-22 06:30] LABS: Anion Gap 7 mmol/L (4-12); Blood Urea Nitrogen 12 mg/dL (9-20); Calcium 8.5 mg/dL (8.4-10.2); Carbon Dioxide 26 mmol/L (22-30); Chloride 107 mmol/L (98-107); Estimated CRCL calculation 75 ml/min; Estimated Glomerular Filt Rate > 60; Glucose 121 mg/dL (65-110); Potassium 3.8 mmol/L (3.4-5.0); Sodium 140 mmol/L (137-145)
--- NOTE | 2024-09-22 07:07 | PM.IMPN ---
Progress Note: A&P Assessment and Plan (1) Diverticulitis: Code(s): K57.92 - Diverticulitis of intestine, part unspecified, without perforation or abscess without bleeding Status: Acute Assessment and Plan: - Monitor vital signs, I&Os, track stool output, watch for bloody stools, neuro status and patient is a fall risk - Monitor serum electrolytes and CBC - Gentle IV fluid resuscitation - Zosyn 3.375g q6hr, plan to switch to Oral abx upon discharge - Diet: Clear liquid, progress to solid (2) Abscess of sigmoid colon: Code(s): K63.0 - Abscess of intestine Status: Deleted Assessment and Plan: - Intra-abdominal abscess (peritoneal) per General Surgery - CT scan of the abdomen from [place]: Inflammatory changes in the left lower quadrant adjacent to the sigmoid colon and involving the adjacent small bowel loops with multiple abscesses formation. 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 Qualified Code(s): E11.9 - Type 2 diabetes mellitus without complications Code(s): E11.9 - Type 2 diabetes mellitus without complications Status: Acute Assessment and Plan: - hypoglycemia protocol - Glucose 124 - home medication - none - correct regimen ordered - low dose TIDWM and HS - A1C 6.0 (on 08/04/2024) (4) Essential hypertension: Code(s): I10 - Essential (primary) hypertension Status: Acute Assessment and Plan: - BP 156/62 - On Atenolol 25mg, Losartan 100mg, continue (5) Hyperlipemia: Code(s): E78.5 - Hyperlipidemia, unspecified Status: Acute Assessment and Plan: - Continue Pravastatin 40mg daily (6) BPH (benign prostatic hyperplasia): Code(s): N40.0 - Benign prostatic hyperplasia without lower urinary tract symptoms Status: Acute Assessment and Plan: - Continue finasteride 5mg daily Time Spent With Patient Time: Subjective Date/time seen: 09/22/24 07:07 Interval history: Patient is a 73 year old male who presented to the emergency department after an outpatient CT scan at [place] demonstrated intra-abdominal abscesses. Patient started experiencing acute lower abdominal pain, lack of appetite, and cramping on Sep 05. Initially his symptoms improved, but pt lost 10lbs since onset of symptoms due to decreased appetite. 09/22/2024 Patient is examined sitting comfortably at bedside. He reports continued improvement of his pain, stating that he only feels pain when lower left abdomen is palpated. He is still on a clear liquid diet, plan to progress to solid foods and to monitor for bowel movements. He otherwise denies any chest pain, SOB, nausea/vomiting, or urinary changes. WBC 7k, afebrile. Review of Systems Review of Systems: 12 systems were reviewed with pertinent positives and negatives per HPI. Except as documented in the HPI, all other systems were reviewed and are negative. He is edentulous and has not had any teeth in 30 years. He reported that he almost while he had his teeth pulled. He reports that he does not sleep well. He does not think he snores ?that much?. Exam Narrative: Weight 114.6 kg BMI 37.3 Const: Other: Obese, no acute distress, appears stated age HENMT: Other: Mucous membranes are tacky, no oral pharyngeal erythema, crowded posterior oropharynx, edentulous in upper and lower jaw Eyes: Other: Pupils are equal and reactive with evidence of lens replacements bilaterally, no conjunctival pallor, no scleral icterus Neck: Other: Large neck circumference, no JVD, irregular thyroid Resp: Other: Clear to auscultation bilaterally, no increased work of breathing Cardio: Other: Regular rate, regular rhythm, 2+ bilateral radial and pedal pulses GI: Other: Distended, normoactive bowel sounds, no organomegaly, no guarding, no rebound, tenderness in the left lower quadrant to palpation Skin: Other: No jaundice, no pallor, no petechia Neuro: Other: Alert oriented, speech is clear, no facial asymmetry, no localizing neurologic deficits noted during the course of conversation Extrem: Other: No clubbing, cyanosis or edema, age-related arthritic changes noted bilateral knees Psych: Other: Loquacious, Appropriate mood and affect, pleasant and cooperative Objective Data Vital Signs Vital Signs: Vital Signs - 24 hr 09/21/24 08:00 09/21/24 14:00 09/21/24 20:00 Temperature 98.3 F Pulse Rate 54 L Respiratory Rate 22 H Blood Pressure 128/74 Pulse Oximetry 97 Oxygen Delivery Room Air Room Air 09/21/24 20:39 09/22/24 04:48 Temperature 97.8 F 97.4 F L Pulse Rate 56 L 54 L Respiratory Rate 16 16 Blood Pressure 129/74 151/62 H Pulse Oximetry 97 99 Oxygen Delivery Intake/Output Intake/Output: Intake & Output 09/19/24 09/20/24 09/21/24 09/22/24 23:59 23:59 23:59 23:59 Intake Total 100 3780 850 Output Total 1550 Balance 100 3780 -700 Meds/Results Medications: Active Medications Generic Name Dose Route Start Last Admin Trade Name Freq PRN Reason Stop Dose Admin Acetaminophen 650 mg 09/20/24 22:34 Acetaminophen 325 Mg Tablet PO Q4H PRN Mild Pain (1-3) or Fever Atenolol 25 mg 09/21/24 09:00 09/21/24 09:40 Atenolol 25 Mg Tablet PO 25 mg DAILY JOVANA Administration Dextrose 12.5 gm 09/20/24 22:51 Dextrose 50% 25 Gm/50 Ml Syringe IV PUSH PRN PRN Hypoglycemia Protocol Enoxaparin Sodium 40 mg 09/21/24 09:00 09/21/24 09:40 Enoxaparin 40 Mg/0.4 Ml Syringe SUB-Q 40 mg DAILY JOVANA Administration Finasteride 5 mg 09/21/24 09:00 09/21/24 09:40 Finasteride 5 Mg Tablet PO 5 mg DAILY JOVANA Administration Glucagon 1 mg 09/20/24 22:51 Glucagon For Inj 1 Mg Vial IM PRN PRN Hypoglycemia Protocol Glucose 15 gm 09/20/24 22:51 Glucose Oral Gel 15 Gm Of Glucse In 37.5 Gm Tube PO PRN PRN Hypoglycemia Protocol Lactated Ringer's 1,000 mls @ 100 mls/hr 09/20/24 22:20 09/22/24 03:18 Lr - Lactated Ringers Iv IV CONT 100 mls/hr .Q10H JOVANA Administration Piperacillin/Tazobactam/Dextrose 3.375 gm in 50 mls @ 100 mls/hr 09/21/24 06:00 09/22/24 05:15 Zosyn 3.375 Gm/Ns 50 Ml IVPB 100 mls/hr Q6HR JOVANA Administration Dextrose 1,000 mls @ 100 mls/hr 09/20/24 22:51 Dextrose 5% 1,000 Ml IVPB PRN PRN Hypoglycemia Protocol Insulin Aspart 2 - 5 units 09/21/24 16:30 09/21/24 21:08 Insulin Aspart (*Bkc) 100 Units/Ml SUB-Q Not Given ACHS JOVANA Protocol Losartan Potassium 50 mg 09/21/24 09:00 09/21/24 09:40 Losartan Potassium 50 Mg Tablet PO 50 mg DAILY JOVANA Administration Ondansetron HCl 4 mg 09/20/24 22:34 Ondansetron Inj 4 Mg/2 Ml Vial IV PUSH Q6H PRN Nausea And Vomiting Pantoprazole Sodium 40 mg 09/21/24 09:00 09/21/24 09:39 Pantoprazole Sodium Iv 40 Mg Vial IV PUSH 40 mg QAM JOVANA Administration Pravastatin Sodium 40 mg 09/21/24 09:00 09/21/24 09:40 Pravastatin Sodium 20 Mg Tablet PO 40 mg DAILY JOVANA Administration Labs Labs: Laboratory Results - last 24 hr 09/21/24 09/21/24 09/21/24 08:13 11:54 16:04 WBC 9.0 RBC 4.37 L Hgb 13.0 L Hct 39.4 L MCV 90.2 MCH 29.7 MCHC 33.0 RDW 12.1 Plt Count 179 MPV 11.1 H Immature Gran % (Auto) 0.7 H Neut % (Auto) 71.3 Lymph % (Auto) 17.7 L [place] % (Auto) 8.3 Eos % (Auto) 1.7 Baso % (Auto) 0.3 Lymph # (Auto) 1.59 [place] # (Auto) 0.8 H Eos # (Auto) 0.2 Baso # (Auto) 0.0 Abs Immat Gran (auto) 0.06 H Absolute Neuts (auto) 6.4 Absolute Nucleated RBC 0.000 Nucleated RBC % 0.0 Sodium 139 Potassium 3.9 Chloride 106 Carbon Dioxide 25 Anion Gap 8 BUN 17 Creatinine 0.90 Estim Creat Clear Calc 78 Estimated GFR > 60 Glucose 124 H POC Capillary Glucose 202 H 98 Calcium 8.7 09/21/24 09/22/24 20:41 05:56 WBC 7.3 RBC 4.31 L Hgb 12.7 L Hct 39.5 L MCV 91.6 MCH 29.5 MCHC 32.2 RDW 12.0 Plt Count 167 MPV 11.5 H Immature Gran % (Auto) Neut % (Auto) Lymph % (Auto) [place] % (Auto) Eos % (Auto) Baso % (Auto) Lymph # (Auto) [place] # (Auto) Eos # (Auto) Baso # (Auto) Abs Immat Gran (auto) Absolute Neuts (auto) Absolute Nucleated RBC Nucleated RBC % Sodium 140 Potassium 3.8 Chloride 107 Carbon Dioxide 26 Anion Gap 7 BUN 12 D Creatinine 0.93 Estim Creat Clear Calc 75 Estimated GFR > 60 Glucose 121 H POC Capillary Glucose 144 H Calcium 8.5 Quality VTE Prophylaxis VTE prophylaxis: pharmacologic ordered (Lovenox 40 mg subQ daily.) Hospitalist [facility] Advance Care Plan I have confirmed that the patient's Advanced Care Plan is present, code status is documented, or surrogate decision maker is listed in patient medical record.: Yes Medication Reconciliation I have utilized all available resources to obtain, update and review the patients current medications (includes all prescriptions, OTC, herbals, cannabis, and nutritional supplements).: Yes
[2024-09-22 07:40] LABS: Glucose Point of Care 126 mg/dl (65-105)
[2024-09-22 08:54] VITALS: PULSE 60
[2024-09-22] MEDS: atenoloL 25 MG TABLET PO (08:54)
[2024-09-22] MEDS: PRAVASTATIN SODIUM 20 MG TABLET 40 MG PO (08:55)
[2024-09-22] MEDS: PANTOPRAZOLE SODIUM IV 40 MG VIAL IV PUSH (08:55)
[2024-09-22] MEDS: FINASTERIDE 5 MG TABLET PO (08:58)
[2024-09-22] MEDS: LOSARTAN POTASSIUM 50 MG TABLET PO (09:00)
[2024-09-22] MEDS: ENOXAPARIN 40 MG/0.4 ML SYRINGE SUB-Q (09:00)
[2024-09-22 11:47] LABS: Glucose Point of Care 140 mg/dl (65-105)
--- NOTE | 2024-09-22 12:48 | WPDPN ---
Progress Note: A&P Assessment and Plan (1) Diverticulitis: Code(s): K57.92 - Diverticulitis of intestine, part unspecified, without perforation or abscess without bleeding Status: Acute Assessment and Plan: Patient appears to have a case of acute diverticulitis most likely at the descending and proximal sigmoid colon region. He is at some small less than 3cm abscesses which are not really assessable to any drainage but they are small. Clinically the abdominal exam is much improved. White blood count is now normalized. We will keep him on IV antibiotics today and advance his diet to full liquids. Tomorrow if he is doing well on low residual diet and still having a normal white blood cell count and no fever that I think he can probably go home tomorrow on oral antibiotics for another 2 weeks. No need for acute surgical management at this time. Eventually he should get a colonoscopy done about 4 to 6 weeks. He is going to be due for a routine screening colonoscopy about that time and since Dr. Ventura performed his last colonoscopy I will plan on referring him back to Dr. Ventura for the follow-up colonoscopy for this episode of sigmoid diverticulitis. (2) Intra-abdominal abscess: Code(s): K65.1 - Peritoneal abscess Status: Acute Subjective Date/time seen: 09/22/24 12:48 Interval history: Patient feels better today. Denies having any abdominal pain. No nausea. He has tolerated clear liquids without difficulty. He is passing flatus without problems. No bowel movement yet today. White blood cell count is 7000 normal. No fever. Exam GI: Other: Abdomen is obese but soft. Minimal tenderness to palpation on left lower abdomen. Exam is better today than yesterday. Objective Data Vital Signs Vital Signs: Vital Signs - 24 hr 09/21/24 14:00 09/21/24 20:00 09/21/24 20:39 Temperature 36.8 C 36.6 C Pulse Rate 54 L 56 L Respiratory Rate 22 H 16 Blood Pressure 128/74 129/74 Pulse Oximetry 97 97 Oxygen Delivery Room Air 09/22/24 04:48 09/22/24 08:54 Temperature 36.3 C L Pulse Rate 54 L 60 Respiratory Rate 16 Blood Pressure 151/62 H Pulse Oximetry 99 Oxygen Delivery Intake/Output Intake/Output: Intake & Output 09/19/24 09/20/24 09/21/24 09/22/24 23:59 23:59 23:59 23:59 Intake Total 100 3780 1776.7 Output Total 1550 Balance 100 3780 226.7 Meds/Results Medications: Active Medications Generic Name Dose Route Start Last Admin Trade Name Freq PRN Reason Stop Dose Admin Acetaminophen 650 mg 09/20/24 22:34 Acetaminophen 325 Mg Tablet PO Q4H PRN Mild Pain (1-3) or Fever Atenolol 25 mg 09/21/24 09:00 09/22/24 08:54 Atenolol 25 Mg Tablet PO 25 mg DAILY JOVANA Administration Dextrose 12.5 gm 09/20/24 22:51 Dextrose 50% 25 Gm/50 Ml Syringe IV PUSH PRN PRN Hypoglycemia Protocol Enoxaparin Sodium 40 mg 09/21/24 09:00 09/22/24 09:00 Enoxaparin 40 Mg/0.4 Ml Syringe SUB-Q 40 mg DAILY JOVANA Administration Finasteride 5 mg 09/21/24 09:00 09/22/24 08:58 Finasteride 5 Mg Tablet PO 5 mg DAILY JOVANA Administration Glucagon 1 mg 09/20/24 22:51 Glucagon For Inj 1 Mg Vial IM PRN PRN Hypoglycemia Protocol Glucose 15 gm 09/20/24 22:51 Glucose Oral Gel 15 Gm Of Glucse In 37.5 Gm Tube PO PRN PRN Hypoglycemia Protocol Lactated Ringer's 1,000 mls @ 100 mls/hr 09/20/24 22:20 09/22/24 09:01 Lr - Lactated Ringers Iv IV CONT 100 mls/hr .Q10H JOVANA Administration Piperacillin/Tazobactam/Dextrose 3.375 gm in 50 mls @ 100 mls/hr 09/21/24 06:00 09/22/24 05:15 Zosyn 3.375 Gm/Ns 50 Ml IVPB 100 mls/hr Q6HR JOVANA Administration Dextrose 1,000 mls @ 100 mls/hr 09/20/24 22:51 Dextrose 5% 1,000 Ml IVPB PRN PRN Hypoglycemia Protocol Insulin Aspart 2 - 5 units 09/21/24 16:30 09/22/24 08:54 Insulin Aspart (*Bkc) 100 Units/Ml SUB-Q Not Given ACHS JOVANA Protocol Losartan Potassium 50 mg 09/21/24 09:00 09/22/24 09:00 Losartan Potassium 50 Mg Tablet PO 50 mg DAILY JOVANA Administration Ondansetron HCl 4 mg 09/20/24 22:34 Ondansetron Inj 4 Mg/2 Ml Vial IV PUSH Q6H PRN Nausea And Vomiting Pantoprazole Sodium 40 mg 09/21/24 09:00 09/22/24 08:55 Pantoprazole Sodium Iv 40 Mg Vial IV PUSH 40 mg QAM JOVANA Administration Pravastatin Sodium 40 mg 09/21/24 09:00 09/22/24 08:55 Pravastatin Sodium 20 Mg Tablet PO 40 mg DAILY JOVANA Administration Labs Labs: Laboratory Results - last 24 hr 09/21/24 09/21/24 09/21/24 11:54 16:04 20:41 WBC RBC Hgb Hct MCV MCH MCHC RDW Plt Count MPV Sodium Potassium Chloride Carbon Dioxide Anion Gap BUN Creatinine Estim Creat Clear Calc Estimated GFR Glucose POC Capillary Glucose 202 H 98 144 H Calcium 09/22/24 09/22/24 09/22/24 05:56 07:37 11:39 WBC 7.3 RBC 4.31 L Hgb 12.7 L Hct 39.5 L MCV 91.6 MCH 29.5 MCHC 32.2 RDW 12.0 Plt Count 167 MPV 11.5 H Sodium 140 Potassium 3.8 Chloride 107 Carbon Dioxide 26 Anion Gap 7 BUN 12 D Creatinine 0.93 Estim Creat Clear Calc 75 Estimated GFR > 60 Glucose 121 H POC Capillary Glucose 126 H 140 H Calcium 8.5
[2024-09-22 14:00] VITALS: BP 154/85; PULSE 55; RESP 16; TEMP 35.9; O2SAT 97
[2024-09-22 16:45] LABS: Glucose Point of Care 104 mg/dl (65-105)
[2024-09-22 20:46] VITALS: BP 163/97; PULSE 55; RESP 18; TEMP 36.9; O2SAT 97
[2024-09-22 21:37] LABS: Glucose Point of Care 123 mg/dl (65-105)
[2024-09-23 04:15] VITALS: BP 167/87; PULSE 55; RESP 20; TEMP 37.2; O2SAT 98
[2024-09-23] MEDS: PIPERACILLN/TAZ 3.375GM/NS50ML 3.375 GM/50 ML BAG IVPB (05:01)
[2024-09-23 08:07] LABS: Glucose Point of Care 121 mg/dl (65-105)
[2024-09-23] MEDS: FINASTERIDE 5 MG TABLET PO (10:08)
[2024-09-23] MEDS: LOSARTAN POTASSIUM 50 MG TABLET PO (10:08)
[2024-09-23] MEDS: ENOXAPARIN 40 MG/0.4 ML SYRINGE SUB-Q (10:08)
[2024-09-23 10:09] VITALS: PULSE 58
[2024-09-23] MEDS: PRAVASTATIN SODIUM 20 MG TABLET 40 MG PO (10:09)
[2024-09-23] MEDS: atenoloL 25 MG TABLET PO (10:09)
[2024-09-23] MEDS: PANTOPRAZOLE SODIUM IV 40 MG VIAL IV PUSH (10:09)
--- NOTE | 2024-09-23 11:03 | WPDPN ---
Progress Note: A&P Assessment and Plan (1) Diverticulitis: Code(s): K57.92 - Diverticulitis of intestine, part unspecified, without perforation or abscess without bleeding Status: Acute Assessment and Plan: Patient doing well after his episode of descending and sigmoid colon diverticulitis. Small pericolonic abscess. Treated with IV antibiotics and much improved now. White blood count is normal. He is tolerating low-fiber diet. He can be discharged home today on low-fiber diet for the next 3 to 4 weeks. He will need to continue on oral antibiotics which I will prescribe for the next 2 weeks. He can return to see me in the office 2 weeks. At that time I will arrange for him to get a colonoscopy done by Dr. Cardoso to follow-up on his diverticulitis. (2) Intra-abdominal abscess: Code(s): K65.1 - Peritoneal abscess Status: Acute Assessment and Plan: As above Subjective Date/time seen: 09/23/24 11:03 Interval history: Patient is doing very well this morning. He tolerated a low-fiber diet without difficulty. No abdominal pain. He did have a bowel movement which was nonbloody. He feels good. He wants to go home. Exam GI: Other: The abdomen is obese and soft. No tenderness to palpation. Benign. Objective Data Vital Signs Vital Signs: Vital Signs - 24 hr 09/22/24 14:00 09/22/24 20:00 09/22/24 20:46 Temperature 35.9 C L 36.9 C Pulse Rate 55 L 55 L Respiratory Rate 16 18 Blood Pressure 154/85 H 163/97 H Pulse Oximetry 97 97 Oxygen Delivery Room Air 09/23/24 04:15 09/23/24 10:09 Temperature 37.2 C Pulse Rate 55 L 58 L Respiratory Rate 20 Blood Pressure 167/87 H Pulse Oximetry 98 Oxygen Delivery Intake/Output Intake/Output: Intake & Output 09/20/24 09/21/24 09/22/24 09/23/24 23:59 23:59 23:59 23:59 Intake Total 100 3780 3194.7 240 Output Total 2750 600 Balance 100 3780 444.7 -360 Meds/Results Medications: Active Medications Generic Name Dose Route Start Last Admin Trade Name Freq PRN Reason Stop Dose Admin Acetaminophen 650 mg 09/20/24 22:34 Acetaminophen 325 Mg Tablet PO Q4H PRN Mild Pain (1-3) or Fever Atenolol 25 mg 09/21/24 09:00 09/23/24 10:09 Atenolol 25 Mg Tablet PO 25 mg DAILY JOVANA Administration Dextrose 12.5 gm 09/20/24 22:51 Dextrose 50% 25 Gm/50 Ml Syringe IV PUSH PRN PRN Hypoglycemia Protocol Enoxaparin Sodium 40 mg 09/21/24 09:00 09/23/24 10:08 Enoxaparin 40 Mg/0.4 Ml Syringe SUB-Q 40 mg DAILY JOVANA Administration Finasteride 5 mg 09/21/24 09:00 09/23/24 10:08 Finasteride 5 Mg Tablet PO 5 mg DAILY JOVANA Administration Glucagon 1 mg 09/20/24 22:51 Glucagon For Inj 1 Mg Vial IM PRN PRN Hypoglycemia Protocol Glucose 15 gm 09/20/24 22:51 Glucose Oral Gel 15 Gm Of Glucse In 37.5 Gm Tube PO PRN PRN Hypoglycemia Protocol Piperacillin/Tazobactam/Dextrose 3.375 gm in 50 mls @ 100 mls/hr 09/21/24 06:00 09/23/24 05:01 Zosyn 3.375 Gm/Ns 50 Ml IVPB 100 mls/hr Q6HR JOVANA Administration Dextrose 1,000 mls @ 100 mls/hr 09/20/24 22:51 Dextrose 5% 1,000 Ml IVPB PRN PRN Hypoglycemia Protocol Insulin Aspart 2 - 5 units 09/21/24 16:30 09/23/24 08:00 Insulin Aspart (*Bkc) 100 Units/Ml SUB-Q Not Given ACHS JOVANA Protocol Losartan Potassium 50 mg 09/21/24 09:00 09/23/24 10:08 Losartan Potassium 50 Mg Tablet PO 50 mg DAILY JOVANA Administration Ondansetron HCl 4 mg 09/20/24 22:34 Ondansetron Inj 4 Mg/2 Ml Vial IV PUSH Q6H PRN Nausea And Vomiting Pantoprazole Sodium 40 mg 09/21/24 09:00 09/23/24 10:09 Pantoprazole Sodium Iv 40 Mg Vial IV PUSH 40 mg QAM JOVANA Administration Pravastatin Sodium 40 mg 09/21/24 09:00 09/23/24 10:09 Pravastatin Sodium 20 Mg Tablet PO 40 mg DAILY JOVANA Administration Labs Labs: Laboratory Results - last 24 hr 09/22/24 09/22/24 09/22/24 11:39 16:43 20:49 POC Capillary Glucose 140 H 104 123 H 09/23/24 08:04 POC Capillary Glucose 121 H
--- NOTE | 2024-09-23 11:18 | PM.DS ---
DS: Admitting Diagnosis Discharge Date 09/23/24 Admitting Diagnosis Diverticulitis DS: Discharge Diagnosis Discharge Diagnosis (1) Diverticulitis: Code(s): K57.92 - Diverticulitis of intestine, part unspecified, without perforation or abscess without bleeding Status: Acute (2) Abscess of sigmoid colon: Code(s): K63.0 - Abscess of intestine Status: Deleted (3) Type 2 diabetes mellitus: Qualifiers: Diabetes mellitus rn long term care insulin use: without rn long term care use Diabetes mellitus complication status: without complication Qualified Code(s): E11.9 - Type 2 diabetes mellitus without complications Code(s): E11.9 - Type 2 diabetes mellitus without complications Status: Acute (4) Essential hypertension: Code(s): I10 - Essential (primary) hypertension Status: Acute (5) Hyperlipemia: Code(s): E78.5 - Hyperlipidemia, unspecified Status: Acute (6) BPH (benign prostatic hyperplasia): Code(s): N40.0 - Benign prostatic hyperplasia without lower urinary tract symptoms Status: Acute DS: Summary Hospital Course Reason for hospitalization: Abdominal pain Abnormal CT abdomen Hospital Course: 73-year-old male with a past medical history of essential hypertension, type 2 diabetes, hyperlipidemia, BPH, sigmoid diverticulosis, bilateral inguinal hernia repair among other abdominal surgical procedures who presented to our hospital after outpatient CT at [facility] demonstrated intra-abdominal abscesses. The patient reports that he initially started having symptoms on September 05. He developed sudden acute lower abdominal pain. It was associated with the generally bloating and discomfort. He reported complete lack of appetite and severe pain to the point that he he felt like he could not get out of bed. His roommate was bringing him water and helping with his daily cares. He reported the pain would be severe and cramping and then would let up. His pain significantly improved after the 1st 5-6 days. He was able to eat and drink after that time but still has not had much appetite. He denied any nausea or vomiting. He denies any fevers but was having intermittent sweats. He has had a 10 lb weight loss since onset of symptoms. He denies any subjective fevers or chills. He reports that he still has pain if there is palpation to load the lower abdomen. He has not had any associated diarrhea. He reported with his decreased appetite he had decreased number of stools but the 2 stools that he has had since onset the symptoms have been normally formed and brown. Outpatient labs demonstrated leukocytosis with a white count of around [address] of the abdomen pelvis with contrast demonstrated multiple abscesses in the area of the sigmoid colon with inflammatory changes. Patient also had chronic findings of bilateral pleural calcifications, left renal cyst, enlarged prostate in thickened wall of the urinary bladder. However, patient denies any urinary symptoms and reports that he urinates well as long as he takes his finasteride. The patient does have history of ?borderline? diabetes but his primary care doctor recently discontinued his metformin with his outpatient A1c in July being 6%. He is euglycemic in the ER. Patient was followed by General Surgery. He improved greatly with IV antibiotics and his WBC normalized. He endorsed substantial improvement of his abdominal pain, with no peritoneal signs. No indication for urgent surgical management. IV antibiotics were maintained. Patient started on a clear liquid diet and was able to progress to solid foods. Patient states that he was due for a colonoscopy and general surgery recommended having one scheduled no sooner than 4-6 weeks after this episode has resolved. He continued to progress to the point where all of his symptoms had subsided and he was able to have a bowel movement on the a.m. of 09/23/2024. Patient has reliable follow-up with his PCP and will be instructed to call their offices in as possible to schedule a colonoscopy. Patient is amenable to this plan and is stable for discharge. Time Spent with Patient Time attestation: Total time spent providing and/or coordinating discharge services:45 Exam Narrative: Weight 114.6 kg BMI 37.3 Const: Other: Obese, no acute distress, appears stated age HENMT: Other: Mucous membranes are tacky, no oral pharyngeal erythema, crowded posterior oropharynx, edentulous in upper and lower jaw Eyes: Other: Pupils are equal and reactive with evidence of lens replacements bilaterally, no conjunctival pallor, no scleral icterus Neck: Other: Large neck circumference, no JVD, irregular thyroid Resp: Other: Clear to auscultation bilaterally, no increased work of breathing Cardio: Other: Regular rate, regular rhythm, 2+ bilateral radial and pedal pulses GI: Other: Distended, normoactive bowel sounds, no organomegaly, no guarding, no rebound, no tenderness Skin: Other: No jaundice, no pallor, no petechia Neuro: Other: Alert oriented, speech is clear, no facial asymmetry, no localizing neurologic deficits noted during the course of conversation Extrem: Other: No clubbing, cyanosis or edema, age-related arthritic changes noted bilateral knees Psych: Other: Loquacious, Appropriate mood and affect, pleasant and cooperative DS: Data Data Completed and Pending Labs on day of discharge: Labs from last 24 hours 09/23/24 09/22/24 09/22/24 08:04 20:49 16:43 POC Capillary Glucose 121 H 123 H 104 09/22/24 11:39 POC Capillary Glucose 140 H Preliminary micro results at discharge 09/20/24 22:15 Blood Culture - Preliminary Blood 09/20/24 21:39 Blood Culture - Preliminary Blood Discharge Plan Discharge Attending physician on discharge: Niraj Ramos Consulting providers: Arben Hoover Discharging Clinician: Niraj Ramos Anticipated Discharge Date/Time: 09/23/24 11:17 Patient Disposition: Home, Self-Care Activity: as tolerated and no preference Diet: as tolerated and low fiber Discharge Instructions: Patient may be discharged home today. Still follow-up to see me in my office in 2 weeks. Patient was instructed to call my office for an appointment. He is to stay on a low-fiber diet for the next 2 to 3 weeks. He was instructed to eat some yogurt with active cultures since he is going to be on oral antibiotics for another 2 weeks. No activity restrictions. I will arrange for him to get an outpatient colonoscopy the follow-up on the diverticulitis in 4 to 6 weeks. Patient Instructions: Antibiotic Form Patient Language: [place] Arabian Stand Alone Forms: General Discharge Information Follow-up/Referrals: Arben Hoover MD [Physician] - Discharge Medications: New amoxicillin-pot clavulanate 875-125 mg tablet 1 tablet PO Q12H Qty: 30 0RF metronidazole 500 mg tablet 500 mg PO TID Qty: 45 0RF Continued losartan 100 mg tablet 50 mg PO DAILY pravastatin 40 mg tablet 40 mg PO DAILY atenolol 25 mg tablet 25 mg PO DAILY finasteride 5 mg tablet 5 mg PO DAILY meloxicam 15 mg tablet 15 mg PO DAILY docusate sodium [Colace] 100 mg capsule 100 mg PO DAILY Qty: 30 0RF Date of admission: 09/20/24 22:19 Primary Care Provider: Mary Smith Admitting Provider: Judie Patel Attending physician on admission: Niraj Ramos Condition: Improved Quality VTE Prophylaxis VTE prophylaxis: pharmacologic ordered (Lovenox 40 mg subQ daily.) Hospitalist MIPS Heart Failure (Exclusion) Patient has history of Heart Transplant or Left Ventricular Assistive Device?: No IF YES, STOP HERE Heart Failure (Qualifier) Patient has current or prior documentation of LVEF less than or equal to 40%, or mod/servere depressed LVSF?: No IF NO, STOP HERE
== END 2024-09-23 12:22 | disposition home or self-care (01) | DRG 372 ==
LOC: ANHED 21:58 → ANH3MEDSUR 23:08
PROVIDERS: Nurse Practitioner Family; Surgery; Admitting Provider Internal Medicine; Emergency Provider Emergency Medicine; PCP Internal Medicine; Visit Provider Physician Assistant
DX: K65.1 Peritoneal abscess (principal); K57.20 Diverticulitis of large intestine with perforation and abscess without bleeding; J43.9 Emphysema, unspecified; N40.0 Benign prostatic hyperplasia without lower urinary tract symptoms; I10 Essential (primary) hypertension; E78.5 Hyperlipidemia, unspecified; K57.30 Diverticulosis of large intestine without perforation or abscess without bleeding; R73.03 Prediabetes; Z98.41 Cataract extraction status, right eye; Z87.891 Personal history of nicotine dependence; Z79.82 Long term (current) use of aspirin; Z79.84 Long term (current) use of oral hypoglycemic drugs; Z98.42 Cataract extraction status, left eye; Z96.1 Presence of intraocular lens
CPT/HCPCS: 36415; 80048; 82565; 82948; 83605; 83735; 85025; 85027; 87040; 96365; 96368; 99285; A9270; J1650; J1815; J1836; J2470; J2543; J7120

== ENCOUNTER 2024-11-13 00:53 | Day surgery (SDC) | payer MEDICARE, SELFPAY ==
[2024-11-02 11:04] VITALS: BMI 36.8
--- OUTSIDE RECORDS SUMMARY | 2024-11-13 00:56 | XMS_ITS | Encounter Summary ---
Author Organization [facility] Address [facility] [place] [address] Care Team Providers Care Speedometer Inspector Name Role Phone Mary Smith MD Primary Care Provider [phone] Alhaji Evans MD Unavailable Bernie Thorpe APRN FUSE COILER-C Unavailable Amairani Madrigal MD Unavailable Encounter Details Date Type Department Care Team (Late Contact Info) Description 07/31/2021 [facility] [address] [place] [phone] Alhaji Evans MD [address] [place] [address] Social History Tobacco Use Types Packs/Day Years [...] COVID-19? Unable to assess 07/15/2021 8:24 AM PHYSICIAN/ALLERGY/IMMUNOLOGY documented as of this encounter Plan of Treatment Upcoming Encounters Date Type Department Care Team (Late Contact Info) Description 05/30/2025 1:15 PM PHYSICIAN/ALLERGY/IMMUNOLOGY Office Visit [facility] [address] [place] [address] Amairani Madrigal MD [address] [place] [address] documented as of this encounter Procedures Procedure [...] on filedocumented in this encounter Care Teams Speedometer Inspector Relationship Specialty Start Date End Date Mary Smith MD [address] [place] [phone] PCP - General INTERNAL MEDICINE 07/15/21 Alhaji Evans MD [address] [place] [phone] [place] Guide Domestic Tour CARDIOVASCULAR DISEASE 07/15/21 11/10/23 Bernie Thorpe, JAMAR, FUSE COILER-C [address] [facility] [address] [place] [address] NURSE PRACTITIONER 11/11/23 03/27/24 Amairani Madrigal MD [address] [place] [address] [place] Guide Domestic Tour CARDIOVASCULAR DISEASE 03/28/24 documented as of this encounter
--- OUTSIDE RECORDS SUMMARY | 2024-11-13 00:56 | XMS_ITS | Encounter Summary ---
Author Organization [facility] Address [address] [place] [address] Care Team Providers Care Soda Room Operator Name Role Phone Mary Smith MD Primary Care Provider [phone] Alhaji Evans MD Unavailable [phone] Bernie Thorpe APRN CONCRETE POLISHER-C Unavailable Amairani Madrigal MD Unavailable Encounter Details Date Type Department Care Team (Late st Contact Info) Description 09/01/2021 Abstract [facility] [address] [place] [address] Alhaji Evans MD [address] [place] [phone] Social History Tobacco Use Types Packs/Day Years [...] (Late Contact Info) Description 05/30/2025 1:15 PM INSURANCE ADJUSTOR Office Visit [facility] [place] [phone] Amairani Madrigal MD [address] [place] [address] documented as of this encounter Visit Diagnoses Not on filedocumented in this encounter Care Teams Soda Room Operator Relationship Specialty Start Date End Date Mary Smith MD [address] [place] [address] PCP - General INTERNAL MEDICINE 07/15/21 Alhaji Evans MD [address] [place] [phone] [place] Business Administration Instructor CARDIOVASCULAR DISEASE 07/15/21 11/10/23 Bernie Thorpe APRN, CONCRETE POLISHER-C [address] [facility] [address] [place] [address] NURSE PRACTITIONER 11/11/23 03/27/24 Amairani Madrigal MD [address] [place] [address] [place] Business Administration Instructor CARDIOVASCULAR DISEASE 03/28/24 documented as of this encounter
--- OUTSIDE RECORDS SUMMARY | 2024-11-13 00:56 | XMS_ITS | Clinical Summary ---
Author Organization [facility] Address [facility] [place] [address] Care Team Providers Care Central Scheduler Name Role Phone Mary mSith MD Primary Care Provider [phone] Amairani Madrigal MD Unavailable Allergies No known [...] therapy 10-12 years ago Hypertension Mixed hyperlipidemia Family History Medical History Relation Comments Heart [...] Comments Blood Pressure 130/74 05/15/2024 2:37 PM DIRECTOR OF PLACEMENT Pulse 59 05/15/2024 2:37 PM DIRECTOR OF PLACEMENT Temperature 36.2 C (97.2 F) 03/15/2024 11:02 AM CDT Respiratory Rate 20 05/15/2024 2:37 PM DIRECTOR OF PLACEMENT Oxygen Saturation 99% 05/15/2024 2:37 PM DIRECTOR OF PLACEMENT Inhaled Oxygen Concentration - - Weight 114.3 kg (252 lb) 05/15/2024 2:37 PM DIRECTOR OF PLACEMENT Height 175.3 cm (5' 9 ) 05/15/2024 2:37 PM DIRECTOR OF PLACEMENT Body Mass Index 37.21 05/15/2024 2:37 PM DIRECTOR OF PLACEMENT Plan of Treatment Upcoming Encounters Date Type Department Care Team (Late st Contact Info) Description 05/30/2025 1:15 PM DIRECTOR OF PLACEMENT Office Visit [facility] [place] [address] Amairani Madrigal MD [address] [place] [address] Health Maintenance Due Date Last Done Comments ASCVD Statin 1950 Hepatitis C 1966 DTaP, Tdap and Td Vaccines (1 - Tdap) 09/24/1967 Pneumococcal Vaccine: 50+ Years (1 of 2 - PCV) 09/24/1967 Zoster Vaccines (1 of 2) 1998 Annual Medicare Wellness Visit 2013 ASCVD LDL 01/02/2023 01/02/2022, 07/12, 12/31/2020, Additional history exists RSV Immunization or 60+ Years (1 - 1-dose 75+ series) 09/24/2023 COVID-19 Vaccine ( - 2023- season) 2024 Meningococcal B Vaccine Aged Out No l onger eligible based on patient's age to complete this topic Meningococcal Vaccine Aged Out No arielle mae eligible based on patient's age to complete this topic RSV Immunizations Under 20 Months Aged Out No longer eligible based on patient's age to complete this topic Medical Devices Implanted Type Area Margarine Churn Operator Device Identifier Shelf Expiration Date Model / Serial / Lot Tecnis 1-Piece Iol Implanted:Qty: 1 on 02/16/2024 by Denia Marcano MD at [facility] Right: Eye [employer] 12/01/2024 Tecnis 1-Piece Iol Implanted:Qty: 1 on 03/15/2024 by Denia Marcano MD at [facility] Left: Eye [employer] 04/22/2026 [id number] / [id number] / Procedures Procedure Name Priority Date/Time Associated Diagnosis Comments LIPID PANEL Routine 01/02/2022 from Last 3 Months or Most Recently Relevant to Health Maintenance Results * LIPID PANEL (01/02/2022) CHOLESTEROL 158 HDL 41 TRIGLYCERIDES 123 LDL (CALCULATED) 92 01/02/2022 us Doc [facility]ORATORY Final Result from Last 3 Months or Most Recently Relevant to Health Maintenance Insurance MEDICARE [facility] Care Teams Central Scheduler Relationship Specialty Start Date End Date Mary Smith MD [address] [place] [address] PCP - General INTERNAL MEDICINE 07/15/21 Amairani Madrigal MD [address] [place] [address] [place] CARDIOVASCULAR DISEASE 03/28/24
--- OUTSIDE RECORDS SUMMARY | 2024-11-13 00:56 | XMS_ITS | Clinical Summary ---
Author Organization [facility] Address [address] [place] [address] Care Team Providers Care Cue Selector Name Role Phone Unavailable Primary Care Provider Unavailabl e Source Comments [facility],non-owned Affiliates and Associated Physician Practices is amultiple site organization consisting of ambulatory clinics and hospital sitesin [place], [place], [place] and [place]. This disclosure is being madepursuant to the Care Everywhere program and may not contain all information available regarding this patient. Last updated 18.[facility] [employer] Social History Tobacco Use Types Packs/Day Years Used Date Smoking Tobacco: Never Assessed Sex and Gender Information Value Date Recorded Sex Assigned at Not on file Legal Sex Male 4:23 AM SALES TRAINING REPRESENTATIVE Gender Identity Not on file Sexual Orientation Not on file Plan of Treatment Health Maintenance Due Date Last Done Comments HEPATITIS C SCREENING 09/19/1966 DTAP/TDAP/TD VACCINES (1 - Tdap) 09/24/1967 PNEUMOCOCCAL VACCINE 50+ (1 of 1 - PCV) 1998 ZOSTER VACCINE (1 of 2) 1998 Respiratory Syncytial Virus (RSV) Vaccine Pt: or over 60 yrs (1 - 1-dose 75+ series) 09/24/2023 COVID-19 VACCINE ( - 2023-2 5 season) 2024 DEPRESSION SCREENING 07/12/2024 INFLUENZA VACCINE (Season Ended) 2025 HEPATITIS B VACCINE Aged Out No longe [...] on patient's age to complete this topic Insurance MEDICARE
[2024-11-13 06:27] VITALS: BP 143/79; PULSE 56; RESP 16; TEMP 36.1; O2SAT 97; BMI 34.9
[2024-11-13] MEDS: LACTATED RINGERS 1,000 ML 150 ML IV CONT (06:37)
--- NOTE | 2024-11-13 07:28 | PM.IMHP ---
H&P: HPI History of Present Illness Date/Time: 11/13/24 07:28 Chief Complaint: Diverticulitis Narrative: this is a 74-year-old man who presents for colonoscopy. He had diverticulitis about 2 months ago which she has fully recovered from. His last colonoscopy was about 6 years ago and a couple polyps were removed at that time. He also has a family history of colon cancer in his mother. He denies any hematochezia or melena. Review of Systems Review of Systems: All systems reviewed & are unremarkable except as noted in HPI and below Constitutional: Constitutional: Denies chills, Denies fever(s), Denies headache(s) and Denies weight loss Eyes: Eyes: Denies change in vision ENT: Denies dizziness, Denies headache(s), Denies neck mass and Denies throat swelling Cardiovascular: Cardiovascular: Denies chest pain, Denies lightheadedness and Denies dyspnea Respiratory: Respiratory: Denies cough, Denies dyspnea and Denies wheezing Gastrointestinal: Gastrointestinal: Denies abdominal pain, Denies change in bowel habits, Denies nausea and Denies vomiting Genitourinary: Genitourinary: Denies hematuria and Denies dysuria Musculoskeletal: Musculoskeletal: Reports as per HPI Integumentary/Breasts: Skin/Breast: Reports as per HPI Neurologic: Denies dizziness and Denies headache(s) Allergic/Immunologic: Allergic/Immunologic: Denies throat swelling and Denies wheezing [facility] Past Medical History Medical History Hepatic steatosis Sigmoid diverticulosis BMI 36.0-36.9,adult Essential hypertension COPD with emphysema Benign prostatic hyperplasia Post-operative nausea and vomiting Arthritis Spigelian hernia Status post repair in March 2020. Anxiety Chronic rhinitis Type 2 diabetes mellitus Mixed hyperlipidemia Surgical History Surgical History Status post cataract extraction of both eyes with insertion of intraocular lens S/P TURP (transurethral resection of prostate) (05/2020) History of elbow surgery History of hemorrhoidectomy History of hernia repair (~03/20/20) Right spigelian incarcerated hernia repair with mesh. History of bilateral inguinal hernia repair History of hand surgery Related to a crush injury many years ago. History of colonoscopy Family History Family History Mother Hypertension Colon cancer Rheumatic arteritis High cholesterol Sibling Heart disease Social History Social History Social History: Patient reports that he has been since 2019. He has 1 biological daughter Evelyn and a stepdaughter Leila. His great nephew and a woman who was homeless now live with him. 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 He drinks 3-4 alcoholic beverages a month. He used to smoke a pack of cigarettes per day for 25 years but quit in the . He denies illicit substance use. 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 Healthcare power of bank teller: Rula Izaiahfiliberto (stepdaughter) Code status: Full code. Smoking packs per day: 1 Smoking cigarettes per day: 20.0 Years smoked: 20 Smoking pack-years: 20.00 Smoking status: Former smoker Tobacco type: cigarettes Smoking end date: 07/12/89 Alcohol intake: current Drinks per week: 10 Alcohol use details: Has reduced drinking since diverticulitis 08/2024 Substance use: never Substance use type: does not use Do You Feel Safe in your Home?: Yes Lack of Transportation: No Lack of Food: Never True Current Housing: I Have Housing Concerned About Future Housing: No Difficulty Paying Gas/Electric Bills: No Difficulty Paying for Meds: No Currently Unemployed: No Education: Bachelor's Degree Difficulty w/ Childcare or Family Care: No Living arrangements: with family Additional living arrangements comments: Patient lives in his own home in [place]. He has been since approximately 2018. 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 Gender identity (if verbalized by the patient): Male Spiritual care concerns: No Meds Home Medications and Allergies Home Medications ?Medication ?Instructions ?Recorded ?Confirmed ?Type atenolol 25 mg tablet 25 mg PO DAILY 02/28/20 11/13/24 History losartan 100 mg tablet 50 mg PO DAILY 02/28/20 11/13/24 History pravastatin 40 mg tablet 40 mg PO DAILY 02/28/20 11/13/24 History docusate sodium 100 mg capsule 100 mg PO DAILY #30 caps 05/17/20 11/02/24 Rx (Colace) finasteride 5 mg tablet 5 mg PO DAILY 09/21/24 11/13/24 History meloxicam 15 mg tablet 15 mg PO DAILY 09/21/24 11/13/24 History amoxicillin 875 mg-potassium 1 tablet PO Q12H #30 tabs 09/23/24 11/02/24 Rx clavulanate 125 mg tablet metronidazole 500 mg tablet 500 mg PO TID #45 tabs 09/23/24 11/02/24 Rx aspirin 81 mg capsule 81 mg PO DAILY 11/02/24 11/13/24 History Allergies Allergy/AdvReac Type Severity Reaction Status Date / Time No Known Allergies Allergy Verified 11/13/24 06:25 Vital Signs Vital Signs - 24 hr 11/13/24 06:27 Temperature 97 F L Pulse Rate 56 L Respiratory Rate 16 Blood Pressure 143/79 H Pulse Oximetry 97 Oxygen Delivery Room Air Exam Const: General: no acute distress and alert Orientation/consciousness: patient oriented x3 HENMT: Head: normocephalic and atraumatic Ears: hearing grossly normal bilaterally Face/Nose/Sinus: Normal nares present Mouth: Yes Normal oral and palatal mucosa present Eyes: Periorbital: periorbital findings normal Sclera: sclerae normal EOM: EOMs intact bilaterally Neck: Neck: normal visual inspection, no lymphadenopathy and trachea midline Chest: Chest palpation & inspection: normal inspection of the chest Resp: Effort & Inspection: normal respiratory effort Auscultation: clear to auscultation bilaterally Cardio: Jugular venous distension: no JVD Rate: regular rate Rhythm: regular rhythm Heart sounds: S1 normal heart sound present and S2 normal heart sound present Peripheral pulses: Peripheral pulses 2+ throughout GI: Inspection: normal to inspection GI Palp: Yes Soft to palpation, No Tenderness to palpation present (GI), No Guarding due to palpation present (GI) and No Rebound tenderness present Percussion: Yes normal to percussion Auscultation: normal bowel sounds : General: Yes no CVA tenderness Back/Spine/Pelvis: Back: no CVA tenderness Neuro: General: patient oriented x3, no focal motor deficits and CN's II-XI intact bilaterally Cognition (Neuro): normal cognition Speech: normal speech Motor exam (neuro): 5/5 motor strength present throughout Extrem: General: capillary refill normal and no clubbing, cyanosis or edema Assessment and Plan Assessment and plan (1) Diverticulitis: Code(s): K57.92 - Diverticulitis of intestine, part unspecified, without perforation or abscess without bleeding Status: Acute Assessment and Plan: I have recommended colonoscopy. I have discussed the procedure, risks, benefits, and alternatives. Questions were answered. Patient is agreeable to proceed.
--- NOTE | 2024-11-13 07:31 | WPDANESEPPF ---
Anes - Initial Pre Proc Eval Procedure: Operation Date: 11/13/24 07:30 Proposed Procedures p Colonoscopy - Justin Ventura DO Date/Time: 11/13/24 07:31 Surgeon: Justin Ventura DO Pre Op Diagnosis: Sigmoid diverticulitis Patient Data Age: 74 Gender: M Height: 1.73 m Weight: 104.3 kg Last Vital Signs Temp 97 F L 11/13/24 06:27 Pulse 56 L 11/13/24 06:27 Resp 16 11/13/24 06:27 BP 143/79 H 11/13/24 06:27 Pulse Ox 97 11/13/24 06:27 O2 Del Method Room Air 11/13/24 06:27 Allergies Allergy/AdvReac Type Severity Reaction Status Date / Time No Known Allergies Allergy Verified 11/13/24 06:25 Home Medications ?Medication ?Instructions ?Recorded ?Confirmed ?Type atenolol 25 mg tablet 25 mg PO DAILY 02/28/20 11/13/24 History losartan 100 mg tablet 50 mg PO DAILY 02/28/20 11/13/24 History pravastatin 40 mg tablet 40 mg PO DAILY 02/28/20 11/13/24 History docusate sodium 100 mg capsule 100 mg PO DAILY #30 caps 05/17/20 11/02/24 Rx (Colace) finasteride 5 mg tablet 5 mg PO DAILY 09/21/24 11/13/24 History meloxicam 15 mg tablet 15 mg PO DAILY 09/21/24 11/13/24 History amoxicillin 875 mg-potassium 1 tablet PO Q12H #30 tabs 09/23/24 11/02/24 Rx clavulanate 125 mg tablet metronidazole 500 mg tablet 500 mg PO TID #45 tabs 09/23/24 11/02/24 Rx aspirin 81 mg capsule 81 mg PO DAILY 11/02/24 11/13/24 History Patient hx anesthesia problems: none Family hx anesthesia problems: none Results Review: All pre-operative results and documents have been reviewed as part of the pre-operative evaluation. [facility] Past Medical History Medical History Hepatic steatosis Sigmoid diverticulosis BMI 36.0-36.9,adult Essential hypertension COPD with emphysema Benign prostatic hyperplasia Post-operative nausea and vomiting Arthritis Spigelian hernia Status post repair in March 2020. Anxiety Chronic rhinitis Type 2 diabetes mellitus Mixed hyperlipidemia Surgical History Surgical History Status post cataract extraction of both eyes with insertion of intraocular lens S/P TURP (transurethral resection of prostate) (05/2020) History of elbow surgery History of hemorrhoidectomy History of hernia repair (~03/20/20) Right spigelian incarcerated hernia repair with mesh. History of bilateral inguinal hernia repair History of hand surgery Related to a crush injury many years ago. History of colonoscopy Family History Family History Mother Hypertension Colon cancer Rheumatic arteritis High cholesterol Sibling Heart disease Social History Social History Social History: Patient reports that he has been since 2019. He has 1 biological daughter Evelyn and a stepdaughter Leila. His great nephew and a woman who was homeless now live with him. 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 He drinks 3-4 alcoholic beverages a month. He used to smoke a pack of cigarettes per day for 25 years but quit in the . He denies illicit substance use. 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 Healthcare power of rehabilitation assistant: Rula Pro (stepdaughter) Code status: Full code. Smoking packs per day: 1 Smoking cigarettes per day: 20.0 Years smoked: 20 Smoking pack-years: 20.00 Smoking status: Former smoker Tobacco type: cigarettes Smoking end date: 07/12/89 Alcohol intake: current Drinks per week: 10 Alcohol use details: Has reduced drinking since diverticulitis 08/2024 Substance use: never Substance use type: does not use Do You Feel Safe in your Home?: Yes Lack of Transportation: No Lack of Food: Never True Current Housing: I Have Housing Concerned About Future Housing: No Difficulty Paying Gas/Electric Bills: No Difficulty Paying for Meds: No Currently Unemployed: No Education: Bachelor's Degree Difficulty w/ Childcare or Family Care: No Living arrangements: with family Additional living arrangements comments: Patient lives in his own home in [place]. He has been since approximately 2019. 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 Gender identity (if verbalized by the patient): Male Spiritual care concerns: No Anes - Eval Final PreProcedure Day of Procedure 11/13/24 07:31 Patient weight: obese Lungs: normal air movement Airway: Mallampati scale class II and special considerations (Edentulous. ) Neurological: alert and oriented Last oral intake: >/= 8 hours ASA classification: III Emergent: no Anesthetic plan: proceed Anesthesia type and monitoring: general GIVS and standard monitoring Results Review: All pre-operative results and documents have been reviewed as part of the pre-operative evaluation. HTN, hyperlipidemia, DM.. Informed Consent: The patient's anesthetic plan and its attendant risks and benefits were discussed with the patient/family/POA. Questions were solicited and answers provided to the satisfaction of the patient/family/POA.
[2024-11-13 07:48] VITALS: BP 105/62; PULSE 48; RESP 16; O2SAT 92
[2024-11-13 07:58] VITALS: BP 119/73; PULSE 50; RESP 16; O2SAT 98
[2024-11-13 08:08] VITALS: BP 134/84; PULSE 55; RESP 16; O2SAT 98
== END 2024-11-13 08:25 | disposition home or self-care (01) ==
PROVIDERS: PCP Internal Medicine; Visit Provider Surgery
PROC: 0DJD8ZZ Inspection of Lower Intestinal Tract, Via Natural or Artificial Opening Endoscopic (ICD-10-PCS; CPT 45378; principal; 2024-11-13 07:30)
DX: K57.30 Diverticulosis of large intestine without perforation or abscess without bleeding (principal); I10 Essential (primary) hypertension; J43.9 Emphysema, unspecified; E11.9 Type 2 diabetes mellitus without complications; E78.2 Mixed hyperlipidemia; N40.0 Benign prostatic hyperplasia without lower urinary tract symptoms; F41.9 Anxiety disorder, unspecified; M17.0 Bilateral primary osteoarthritis of knee; J31.0 Chronic rhinitis; E66.9 Obesity, unspecified; Z68.35 Body mass index [BMI] 35.0-35.9, adult; Z79.82 Long term (current) use of aspirin; Z98.890 Other specified postprocedural states; Z86.0100 Personal history of colon polyps, unspecified; Z87.891 Personal history of nicotine dependence; Z87.19 Personal history of other diseases of the digestive system; Z80.0 Family history of malignant neoplasm of digestive organs; Z82.49 Family history of ischemic heart disease and other diseases of the circulatory system
CPT/HCPCS: 45378; J2704; J7120

== ENCOUNTER 2025-01-22 07:08 | Outpatient (CLI) | payer MEDICARE, SELFPAY ==
--- OUTSIDE RECORDS SUMMARY | 2025-01-22 07:13 | XMS_ITS | Encounter Summary ---
Author Organization [facility] Address [facility] [place] [address] Care Team Providers Care Head Pastry Chef Name Role Phone Mary Smith MD Primary Care Provider [phone] Alhaji Evans MD Unavailable Bernie Thorpe APRN, PETROLEUM SUPPLY SPECIALIST-C Unavailable Amairani Madrigal MD Unavailable Encounter Details Date Type Department Care Team (Late Contact Info) Description 07/31/2021 [facility] [address] [place] [phone] Alhaji Evans MD [address] [place] [address] Social History Tobacco Use Types Packs/Day Years [...] COVID-19? Unable to assess 07/15/2021 8:24 AM CUSTOMS MANAGER documented as of this encounter Plan of Treatment Upcoming Encounters Date Type Department Care Team (Late Contact Info) Description 05/30/2025 1:15 PM CUSTOMS MANAGER Office Visit [facility] [address] [place] [address] Amairani Madrigal MD [address] [place] [address] documented as of this encounter Procedures Procedure [...] on filedocumented in this encounter Care Teams Head Pastry Chef Relationship Specialty Start Date End Date Mary Smith MD [address] [place] [phone] PCP - General INTERNAL MEDICINE 07/15/21 Alhaji Evans MD [address] [place] [phone] [place] Metal Flow Coordinator CARDIOVASCULAR DISEASE 07/15/21 11/10/23 Bernie Thorpe, JAMAR, PETROLEUM SUPPLY SPECIALIST-C [address] [facility] [address] [place] [address] NURSE PRACTITIONER 11/11/23 03/27/24 Amairani Madrigal MD [address] [place] [address] [place] Metal Flow Coordinator CARDIOVASCULAR DISEASE 03/28/24 documented as of this encounter
--- OUTSIDE RECORDS SUMMARY | 2025-01-22 07:13 | XMS_ITS | Encounter Summary ---
Author Organization [facility] Address [address] [place] [address] Care Team Providers Care Oracle Data Warehouse Developer Name Role Phone Mary Smith MD Primary Care Provider [phone] Alhaji Evans MD Unavailable Bernie Thorpe APRN STILL OPERATOR-C Unavailable [phone] Amairani Madrigal MD Unavailable Encounter Details Date Type Department Care Team (Late st Contact Info) Description 09/01/2021 Abstract [facility] [address] [place] [address] Alhaji Evans MD [address] [place] [address] Social History Tobacco Use Types Packs/Day Years [...] (Late Contact Info) Description 05/30/2025 1:15 PM FIRER LOW PRESSURE Office Visit [facility] [place] [address] Amairani Madrigal MD [address] [place] [address] documented as of this encounter Visit Diagnoses Not on filedocumented in this encounter Care Teams Oracle Data Warehouse Developer Relationship Specialty Start Date End Date Mary Smith MD [address] [place] [address] PCP - General INTERNAL MEDICINE 07/15/21 Alhaji Evans MD [address] [place] [phone] [place] Tumbling Barrel Painter CARDIOVASCULAR DISEASE 07/15/21 11/10/23 Bernie Thorpe APRN, STILL OPERATOR-C [address] [facility] [address] [place] [address] NURSE PRACTITIONER 11/11/23 03/27/24 Amairani Madrigal MD [address] [place] [address] [place] Tumbling Barrel Painter CARDIOVASCULAR DISEASE 03/28/24 documented as of this encounter
--- OUTSIDE RECORDS SUMMARY | 2025-01-22 07:13 | XMS_ITS | Clinical Summary ---
Author Organization [facility] Address [address] [place] [address] Care Team Providers Care Engineer And Geologist Name Role Phone Unavailable Primary Care Provider Unavailabl e Source Comments [facility],non-owned Affiliates and Associated Physician Practices is amultiple site organization consisting of ambulatory clinics and hospital sitesin [place], [place], [place] and [place]. This disclosure is being madepursuant to the Care Everywhere program and may not contain all information available regarding this patient. 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
--- OUTSIDE RECORDS SUMMARY | 2025-01-22 07:13 | XMS_ITS | Clinical Summary ---
Author Organization [facility] Address [facility] [place] [address] Care Team Providers Care Attendance Clerk Name Role Phone Mary Smith MD Primary Care Provider [phone] Amairani Madrigal MD Unavailable Allergies No known [...] Comments Blood Pressure 130/74 05/15/2024 2:37 PM AUTOMOTIVE PARTS SALESPERSON Pulse 59 05/15/2024 2:37 PM AUTOMOTIVE PARTS SALESPERSON Temperature 36.2 C (97.2 F) 03/15/2024 11:02 AM CDT Respiratory Rate 20 05/15/2024 2:37 PM AUTOMOTIVE PARTS SALESPERSON Oxygen Saturation 99% 05/15/2024 2:37 PM AUTOMOTIVE PARTS SALESPERSON Inhaled Oxygen Concentration - - Weight 114.3 kg (252 lb) 05/15/2024 2:37 PM AUTOMOTIVE PARTS SALESPERSON Height 175.3 cm (5' 9) 05/15/2024 2:37 PM AUTOMOTIVE PARTS SALESPERSON Body Mass Index 37.21 05/15/2024 2:37 PM AUTOMOTIVE PARTS SALESPERSON Plan of Treatment Upcoming Encounters Date Type Department Care Team (Late st Contact Info) Description 05/30/2025 1:15 PM AUTOMOTIVE PARTS SALESPERSON Office Visit [facility] [place] [address] Amairani Madrigal MD [address] [place] [address] Health Maintenance Due Date Last [...] this topic Medical Devices Implanted Type Area Corporate Staff Accountant Device Identifier Shelf Expiration Date Model / Serial / Lot Tecnis 1-Piece Iol Implanted:Qty: 1 on 02/16/2024 by Denia Marcano MD at [facility] Right: Eye [employer] 12/01/2024 Tecnis 1-Piece Iol Implanted:Qty: 1 on 03/15/2024 by Denia Marcano MD at [facility] Left: Eye [employer] 04/22/2026 [id number] / [id number] / Procedures Procedure Name Priority Date/Time Associated Diagnosis Comments LIPID PANEL Routine 01/02/2022 from Last 3 Months or Most Recently Relevant to Health Maintenance Results * LIPID PANEL (01/02/2022) CHOLESTEROL 158 HDL 41 TRIGLYCERIDES 123 LDL (CALCULATED) 92 01/02/2022 us Doc [facility] Abstract LABORATORY Final Result from Last 3 Months or Most Recently Relevant to Health Maintenance Insurance MEDICARE [facility] Care Teams Attendance Clerk Relationship Specialty Start Date End Date Mary Smith MD [address] [place] [address] PCP - General INTERNAL MEDICINE 07/15/21 Amairani Madrigal MD [address] [place] [address] [place] Glass Crusher CARDIOVASCULAR DISEASE 03/28/24
[2025-01-22 07:26] LABS: Add Urine Microscopic? NO; Appearance Urine Clear (Clear); Glucose Urine UA Negative (Negative); Hematocrit 44.6 % (37.0-46.0); Hemoglobin 14.4 g/dL (12.4-15.3); Immature Granulocyte Percent A 0.2 % (0.0-0.0); Leukocyte Esterase Ur Negative (Negative); Lymphocytes Absolute Auto 1.88 K/mm3 (1.10-4.50); Mean Corpuscular HGB Conc 32.3 g/dL (32-36); Mean Corpuscular Hemoglobin 30.1 pg (27.0-31.0); Mean Corpuscular Volume 93.3 fL (78.0-102.0); Nitrate Urine Negative (Negative); Nucleated Red Blood Cells Absolute Auto 0.00 K/mm3 (0.00-0.00); Nucleated Red Blood Cells Perc 0.0 % (0-0.0); Platelet Count Result 143 K/mm3 (150-420); Red Blood Count 4.78 M/mm3 (4.70-6.10); Specific Grav Ur 1.025 (1.010-1.020); White Blood Count 6.2 K/mm3 (4.8-10.8)
[2025-01-22 07:39] LABS: Hemoglobin A1C 5.6 % (<5.7)
[2025-01-22 07:55] LABS: Alanine Aminotransferase 22 U/L (6-50); Albumin Level 3.9 g/dL (3.5-5.1); Alkaline Phosphatase 87 U/L (38-126); Anion Gap 4 mmol/L (4-12); Aspartate Amino Transferase 24 U/L (17-59); Bilirubin,Total 0.6 mg/dL (0.2-1.3); Blood Urea Nitrogen 19 mg/dL (9-20); Calcium 9.0 mg/dL (8.4-10.2); Carbon Dioxide 26 mmol/L (22-30); Chloride 109 mmol/L (98-107); Cholesterol 166 mg/dL (0-200); Creatine Kinase 73 U/L (55-170); Estimated Glomerular Filt Rate > 60; Glucose 117 mg/dL (65-110); HDL Direct 45 mg/dL; Osmolality Calculated 291 mOsm/kg (285-295); Potassium 4.4 mmol/L (3.4-5.0); Sodium 139 mmol/L (137-145); Total Protein 6.4 g/dL (6.3-8.2); Triglycerides 94 mg/dL (<150)
[2025-01-22 08:11] LABS: Free T4 Free Thyroxine 1.00 ng/dL (0.78-2.19)
[2025-01-22 08:12] LABS: Free T3 3.77 pg/mL (2.18-3.98)
[2025-01-22 08:25] LABS: Thyroid Stimulating Hormone 3.000 uIU/mL (0.465-4.680)
== END 2025-01-22 07:09 | disposition home or self-care (01) ==
LOC: CHSLAB 07:11
PROVIDERS: PCP Internal Medicine; Visit Provider Internal Medicine
DX: R73.01 Impaired fasting glucose (principal); E78.2 Mixed hyperlipidemia; I10 Essential (primary) hypertension; M25.562 Pain in left knee; I25.10 Atherosclerotic heart disease of native coronary artery without angina pectoris
CPT/HCPCS: 36415; 80053; 80061; 81003; 82550; 83036; 84439; 84443; 84481; 85025

== ENCOUNTER 2025-03-30 12:10 | Outpatient (CLI) | payer MEDICARE, SELFPAY ==
--- NOTE | ~2025-03-30 | CT_ITS ---
CT CHEST WITHOUT CONTRAST CLINICAL HISTORY: Pleural plaques/ asbestos exposure . COMPARISON: CT chest 11/26/2023 TECHNIQUE: Helical CT performed from thoracic inlet to upper abdomen without contrast Coronal, sagittal reformats CT images acquired with automatic exposure control for dose reduction DLP: 454 mGy-cm FINDINGS: Lungs/Pleura: Scattered calcified pleural plaques as before. No nodules. Heart: Coronary artery calcifications. Thoracic Aorta: No aneurysm. Mild atherosclerotic disease. Pulmonary arteries: Normal caliber. Tracheobronchial tree: Patent. Nodes: No enlarged nodes. Bones: No acute bony abnormality. Soft tissues: Unremarkable. Visualized upper abdomen: Gallstones. Small hiatal hernia IMPRESSION: 1. No acute findings or change from prior exam. 2. No worrisome pulmonary nodules. Reviewed, dictated and finalized at location R.
--- OUTSIDE RECORDS SUMMARY | 2025-03-30 12:12 | XMS_ITS | Encounter Summary ---
Author Organization [facility] Address [address] [place] [address] Care Team Providers Care Skin Care Technician Name Role Phone Mary Smith MD Primary Care Provider [phone] Alhaji Evans MD Unavailable [phone] Bernie Thorpe APRN STRAW HAT PLUNGER OPERATOR-C Unavailable Amairani Madrigal MD Unavailable Encounter Details Date Type Department Care Team (Late st Contact Info) Description 09/01/2021 Abstract [facility] [address] [place] [address] Alhaji Evans MD [address] [place] [phone] Social History Tobacco Use Types Packs/Day Years [...] (Late Contact Info) Description 05/30/2025 1:15 PM ASSAULT AMPHIBIOUS VEHICLE CREWMAN Office Visit [facility] [place] [address] Amairani Madrigal MD [address] [place] [address] documented as of this encounter Visit Diagnoses Not on filedocumented in this encounter Care Teams Skin Care Technician Relationship Specialty Start Date End Date Mary Smith MD [address] [place] [address] PCP - General INTERNAL MEDICINE 07/15/21 Alhaji Evans MD [address] [place] [phone] [place] Tube Drawing Supervisor CARDIOVASCULAR DISEASE 07/15/21 11/10/23 Bernie Thorpe APRN, STRAW HAT PLUNGER OPERATOR-C [address] [facility] [address] [place] [address] NURSE PRACTITIONER 11/11/23 03/27/24 Amairani Madrigal MD [address] [place] [address] [place] Tube Drawing Supervisor CARDIOVASCULAR DISEASE 03/28/24 documented as of this encounter
--- OUTSIDE RECORDS SUMMARY | 2025-03-30 12:12 | XMS_ITS | Encounter Summary ---
Author Organization [facility] Address [facility] [place] [address] Care Team Providers Care Employee Service Officer Name Role Phone Mary Smith MD Primary Care Provider [phone] Alhaji Evans MD Unavailable Bernie Thorpe APRN, STUFFING MACHINE OPERATOR-C Unavailable Amairani Madrigal MD Unavailable Encounter Details Date Type Department Care Team (Late Contact Info) Description 07/31/2021 [facility] [address] [place] [phone] Alhaji Evans MD [address] [place] [address] Social History Tobacco Use Types Packs/Day Years [...] COVID-19? Unable to assess 07/15/2021 8:24 AM DIE CASTER documented as of this encounter Plan of Treatment Upcoming Encounters Date Type Department Care Team (Late Contact Info) Description 05/30/2025 1:15 PM DIE CASTER Office Visit [facility] [address] [place] [address] Amairani Madrigal MD [address] [place] [address] documented as of this encounter Procedures Procedure [...] on filedocumented in this encounter Care Teams Employee Service Officer Relationship Specialty Start Date End Date Mary Smith MD [address] [place] [address] PCP - General INTERNAL MEDICINE 07/15/21 Alhaji Evans MD [address] [place] [address] [employer] Painter Assistant CARDIOVASCULAR DISEASE 07/15/21 11/10/23 Bernie Thorpe, JAMAR, STUFFING MACHINE OPERATOR-C [address] [facility] [address] [place] [address] NURSE PRACTITIONER 11/11/23 03/27/24 Amairani Madrigal MD [address] [place] [address] [employer] Painter Assistant CARDIOVASCULAR DISEASE 03/28/24 documented as of this encounter
--- OUTSIDE RECORDS SUMMARY | 2025-03-30 12:12 | XMS_ITS | Clinical Summary ---
Author Organization [facility] Address [address] [place] [address] Care Team Providers Care Compensation And Benefits Manager Name Role Phone Unavailable Primary Care Provider Unavailabl e Source Comments [facility],non-owned Affiliates and Associated Physician Practices is amultiple site organization consisting of ambulatory clinics and hospital sitesin [place], [place], [place] and [place]. This disclosure is being madepursuant to the Care Everywhere program and may not contain all information available regarding this patient. Last updated 18.[facility] [employer] Social History Tobacco Use Types Packs/Day Years Used Date Smoking Tobacco: Never Assessed Sex and Gender Information Value Date Recorded Sex Assigned at Not on file Legal Sex Male 4:23 AM SIGN WRITER LETTERER OR PAINTER Gender Identity Not on file Sexual Orientation Not on file Plan of Treatment Health Maintenance Due Date Last Done Comments HEPATITIS C SCREENING 09/19/1966 DTAP/TDAP/TD VACCINES (1 - Tdap) 09/24/1967 PNEUMOCOCCAL VACCINE 50+ (1 of 1 - PCV) 1998 ZOSTER VACCINE (1 of 2) 1998 Respiratory Syncytial Virus (RSV) Vaccine Pt: or over 60 yrs (1 - 1-dose 75+ series) 09/24/2023 DEPRESSION SCREENING 07/12/2024 COVID-19 VACCINE (1 - 2023-2 5 season) 2025 INFLUENZA VACCINE (#1) 2025 HEPATITIS B VACCINE [...]
== END 2025-03-30 12:11 | disposition home or self-care (01) ==
PROVIDERS: PCP Internal Medicine; Visit Provider Internal Medicine
DX: J92.9 Pleural plaque without asbestos (principal)
CPT/HCPCS: 71250